=== PATIENT | male | born 1945 | race Caucasian/White ===

== ENCOUNTER 2022-06-18 06:04 | Inpatient (IN) ==
--- NOTE | 2022-06-16 12:15 | Anesthesiology Consultation ---
Date of Service June 16, 2022 Assessment & Plan (1) Encounter for pre-operative examination: Chart Review Chart Review: Acceptable Risk for Surgery (pending DOS PRP) and Patient NOT seen in Pre Admission Testing -Discussed with Dr. Epperson- patient can proceed as scheduled -Check PRP stat DOS (not done preoperatively) - Check BSG AM DOS -COVID screening: Per PAT nursing assessment on 06/15/22. No known COVID-19 positive contacts or current COVID-19 related symptoms. Travel screen negative. Patient is NOT vaccinated for Covid. At surgeon discretion if preop Covid testing being done. Per cardio phone note 04/29/22= Patient is being scheduled for spine surgery. Patient recently had coronary stenting in October 2021. In generalit is safest to wait 1 year after stent placement before considering holding antiplatelet agents for elective surgery. Most recent studies suggest that holding Plavix for a few days even 3 to 6 months after stent placement is relatively low risk as long as aspirin is not discontinued. However patient has not been on aspirin since he is also on Eliquis therapy. It is felt the benefits of spine surgery now outweigh the risks, I would consider him moderate risk for coronary ischemia given his fairly recent stent placement and residual coronary disease with occluded vein grafts to his circumflex and right coronary. Would recommend holding Plavix no longer than 5 days. He should take metoprolol the morning of the surgery. Postoperative EKG should be checked and he should be on telemetry postoperatively. Patient has permanent atrial fibrillation. He would be low risk to hold his Eliquis for 2 days prior to surgery from the cardiac standpoint. He is also at risk for anesthesia given his moderate pulmonary hypertension. Last seen by cardiology in office 03/25/2022 = from a cardiac standpointpatient feels fine. Active around the house without any chest pain and has no change in mild chronic dyspnea. Has been having intermittent episodes of epistaxis over the past year. Over the past month these have increased in frequency. Recent Holter monitor showed good rate control with A-fib and a short run of wide- complex rhythm representing either nonsustained VT or aberrant conduction. Patient currently on Eliquis for permanent A-fib along with antiplatelet therapy with Plavix 3 times a week given history of carotid stenting and more recently coronary stenting in October 2021. [id number] score is 5. Will arrange consultation with Dr. Moore to see if he can decrease the amount of epistaxis. Epistaxis most likely chronic- will follow-up- if continues- will set up for evaluation for watchman's device. Patient to continue Eliquis at 2.5 mg twice daily. Otherwise from the cardiac standpoint patient seems stable. Long history of coronary artery disease. We will continue medication therapy and risk factor modification. BP currently well controlled. Pulmonary hypertension appears a bit worse on recent echo. Some of the worsening pulmonary hypertension may be secondary to elevated blood pressures at the time of testing. Does have past smoking history. May consider pulmonary evaluation. We will plan to repeat echo next summer. Patient did well with recent carotid stenting procedure. Due for repeat carotid Doppler in October. Atrial fibrillation well controlled. PAD has been treated by Dr. Sorensen. Ideally would like to wait a full year after stent placement before considering elective procedures requiring antiplatelet medications to be discontinued for a week or so. History Surgery Operation Date: 06/18/22 12:15 Proposed Procedures p L4-L5 Decompression and Fusion, Possible L5-S1, Spinal Cord Monitoring - Augustine Celaya DO Height/Weight Height: 5 ft 6 in Weight: 97.522 kg Allergies Allergy/AdvReac Type Severity Reaction Status Date / Time No Known Allergies Allergy Verified 06/15/22 14:03 Medications Home Medications Medication Instructions Recorded Confirmed Last Taken apixaban 2.5 mg tablet (Eliquis) 2.5 mg PO BID 06/15/22 06/15/22 Unknown bumetanide 2 mg tablet 2 mg PO DAILY PRN Edema 06/15/22 06/15/22 Unknown ezetimibe 10 mg tablet 10 mg PO PM 06/15/22 06/15/22 Unknown gabapentin 300 mg capsule 300 mg PO HS 06/15/22 06/15/22 Unknown indomethacin 50 mg capsule 50 mg PO Q8H PRN Other 06/15/22 06/15/22 Unknown insulin glargine 100 unit/mL (3 58 unit subcut HS 06/15/22 06/15/22 Unknown mL) subcutaneous pen (Lantus Solostar U-100 Insulin) isosorbide mononitrate 60 mg 60 mg PO PM 06/15/22 06/15/22 Unknown tablet,extended release 24 hr magnesium chloride 71.5 mg 71.5 mg PO BID 06/15/22 06/15/22 Unknown (magnesium chloride) tablet,delayed release (Slow-Mag) metolazone 2.5 mg tablet 2.5 mg PO 2XWK 06/15/22 06/15/22 Unknown metoprolol succinate 100 mg 100 mg PO QAM 06/15/22 06/15/22 Unknown tablet,extended release 24 hr pantoprazole 40 mg tablet,delayed 40 mg PO BID 06/15/22 06/15/22 Unknown release potassium chloride 20 mEq 20 meq PO DAILY PRN Other 06/15/22 06/15/22 Unknown tablet,extended release ramipril 10 mg capsule 10 mg PO PM 06/15/22 06/15/22 Unknown ropinirole 0.25 mg tablet 0.25 mg PO HS 06/15/22 06/15/22 Unknown rosuvastatin 10 mg tablet 10 mg PO 2XWK 06/15/22 06/15/22 Unknown semaglutide 0.25 mg or 0.5 mg (2 1 mg subcut WK 06/15/22 06/15/22 Unknown mg/1.5 mL) subcutaneous pen injector (Ozempic) tramadol 100 mg tablet 100 mg PO Q6H PRN Pain 06/15/22 06/15/22 Unknown trazodone 50 mg tablet 50 mg PO HS PRN Sleep 06/15/22 06/15/22 Unknown Past Medical History Medical History (Updated 06/16/22 @ 12:11 by Cristina Cm PA-C) Atrial fibrillation Dx over 8 yrs ago > no pacer, on Eliquis CAD (coronary artery disease) - S/p CABG (LOPEZ to LAD, SVG to diagonal, SVG to marginal, and SVG to RCA) in 1995 - 2002- "multiple stents placed including LM stenting" (no specific details of procedure per records) - September 2011 cath- patent LOPEZ graft to LAD and SVG to diagonal; vein graft to marginal and RCA were occluded; LM stent patent and supplying blood flow to Cx which collateralized the distant RCA (treated with medical therapy since that time) - October 2021- GERSON to vein graft to diagonal branch (had ostial 90% lesion) Carotid artery disease S/p stent to right ICA 05/2021 (patent on 10/2021 carotid doppler) CHF (congestive heart failure) Follows with [facility] > with [facility] Diabetes mellitus, type 2 DVT (deep venous thrombosis) Approx 2 yrs ago > can't recall which leg > unknown cause GERD (gastroesophageal reflux disease) History of COVID-21 May 2019 > not hospitalized Hx of gout Hyperlipidemia Hypertension NSTEMI (non-ST elevated myocardial infarction) August 2021 PAD (peripheral artery disease) May 2019- underwent multiple stenting and balloon angioplasty procedures by Dr Edu Barnes historian Past Family History Family History Mother Diabetes Past Surgical History Surgical History (Updated 06/16/22 @ 13:33 by Cristina Cm PA-C) H/O carotid angioplasty May 2021 > right side History of appendectomy History of cardiac cath x several per pt, with last one October 2021, stent placed > Moe MOREJON 3 stents in 2002, might have had other stents, pt unsure History of colonoscopy History of coronary artery bypass graft 4 vessels in 1995 History of esophagogastroduodenoscopy (EGD) History of repair of rotator cuff left History of tooth extraction Social History Smoking Status: Former smoker Do You Dip or Chew Tobacco: No (quit october 2021) Smoking End Date: 1985 Hx Alcohol Use: No Hx Substance Use: No substance use type: does not use Testing Laboratory Results 06/02/22= WBC: 5.5 H/H: 14.6/44.7 PLATELETS: 119 (mild thrombocytopenia in the past per cardio records 03/25/22) PT: 13.7 INR: 1.22 Electrocardiogram Date: 06/02/22 Atrial fibrillation with premature ventricular or aberrantly conducted complexes at [address]- segment changes, consider ischemia Compared to previous, findings are similar, PVCs new per confirming provider Chest X-Ray Date: 09/30/21 Findings: + NAD and + cardiomegaly S/p CABG Echocardiogram Date: 10/02/21 EF: 55-60% LV Function: normal Severe hypertrophy observed in the left ventricle. Regional wall motion abnormalities present RV is moderately dilated Mild to moderate mitral insufficiency RV/PA systolic pressures is moderately to severely elevated, estimated at 55-60 mmHg. Moderate TR. Compared to prior studythere is mild change. Stress Test Date: 09/30/21 Type: nuclear Abnormal myocardial perfusion study suggesting predominant ischemia involving the inferior lateral wall from base to apex. Very subtle degree of anterior lateral ischemia cannot be excluded. Mildly reduced LV systolic function with inferior lateral wall motion abnormality (Had subsequent cardiac cath with stent- see below) Cardiac Catheterization Date: 10/01/21 Elevated right-sided filling pressures with preserved cardiac index Severe multivessel [place] coronary disease Vein graft to the PDA and the vein graft to the OM branch were previously known to be occluded and were not injected Vein graft to the diagonal branch has an ostial 90% lesionthis was deemed to be the culprit vessel for the NSTEMI and is now status post GERSON x1 with excellent angiographic result LOPEZ to LAD is widely patent Other Testing Carotid Doppler 11/06/2021 = less than 50% nonhemodynamically significant stenosis involving the bilateral internal carotid arteries. Antegrade vertebrals. Stented portion of the ICA of the right is widely patent.
[~2022-06-18 06:04] MED LIST: ACETAMINOPHEN 500 MG TAB PO SCH; CeleBREX 200 MG CAP PO SCH; GABAPENTIN 300 MG CAP PO SCH; LR 15ML/HR IV SCH; ceFAZolin 2000MG 2,000 MG/15 ML SYR IV SCH
[2022-06-18] MEDS ORDERED: MIDAZOLAM HCL 1 MG/ML 2ML VIAL ONE (06:56)
[2022-06-18] MEDS ORDERED: fentaNYL citrate 100 MCG/2 ML VIAL ONE (06:56)
[2022-06-18] MEDS ORDERED: PROPOFOL IV EMULSION 10 MG/ML 20 ML VIAL IV ONE (06:58)
[2022-06-18] MEDS ORDERED: ROCURONIUM BROMIDE 10 MG/ML 5 ML VIAL IV ONE (06:58)
[2022-06-18] MEDS ORDERED: LIDOCAINE 2% MPF LOCAL 5 ML VIAL INFIL ONE (06:58)
[2022-06-18] MEDS ORDERED: ONDANSETRON INJ 2 MG/ML 2 ML VIAL ONE (06:58)
[2022-06-18] MEDS ORDERED: DEXAMETHASONE SOD INJ 4 MG/ML VIAL ONE (06:59)
[2022-06-18] MEDS ORDERED: BUPIVACAINE/EPINEPHRINE 0.25% 1:200,000 30 ML VIAL ONE (07:01)
[2022-06-18] MEDS ORDERED: ceFAZolin 330 MG/ML 1 GM VIAL ONE (07:01)
[2022-06-18 07:03] LABS: BUN Creatinine Ratio 29.8 (10-20); Creatinine Clr Calc Pharmacy 48.7 ml/min; Est GFR (African American) 55.7 ml/min
[2022-06-18] MEDS ORDERED: KETAMINE 50 MG/5 ML SYRINGE ONE (07:38)
--- NOTE | 2022-06-18 07:38 | History & Physical Bridge Note ---
Date of Service June 18, 2022 History & Physical Bridge Note I have examined the patient, reviewed the History & Physical and in the interval since the performance of the History & Physical I have noted the following changes of clinical significance: no changes noted
--- NOTE | 2022-06-18 07:39 | History & Physical Report ---
Date of Service June 18, 2022 Assessment & Plan (1) Neurogenic claudication due to lumbar spinal stenosis: Plan: L4-5 decompression and fusion, possible L5-S1 History of Present Illness Chief Complaint: Back and leg pain Primary Care Provider: NO PCP This is a 77-year-old male who presents with chronic persistent back and leg Pain after failing course of nonoperative care is here for surgical intervention. Allergies Allergy/AdvReac Type Severity Reaction Status Date / Time No Known Allergies Allergy Verified 06/18/22 06:49 Home Medications Medication Instructions Recorded Confirmed Type apixaban 2.5 mg tablet (Eliquis) 2.5 mg PO BID 06/15/22 06/18/22 History bumetanide 2 mg tablet 2 mg PO DAILY PRN Edema 06/15/22 06/18/22 History ezetimibe 10 mg tablet 10 mg PO PM 06/15/22 06/18/22 History gabapentin 300 mg capsule 300 mg PO HS 06/15/22 06/18/22 History indomethacin 50 mg capsule 50 mg PO Q8H PRN Other 06/15/22 06/18/22 History insulin glargine 100 unit/mL (3 58 unit subcut HS 06/15/22 06/18/22 History mL) subcutaneous pen (Lantus Solostar U-100 Insulin) isosorbide mononitrate 60 mg 60 mg PO PM 06/15/22 06/18/22 History tablet,extended release 24 hr magnesium chloride 71.5 mg 71.5 mg PO BID 06/15/22 06/18/22 History (magnesium chloride) tablet,delayed release (Slow-Mag) metolazone 2.5 mg tablet 2.5 mg PO 2XWK 06/15/22 06/18/22 History metoprolol succinate 100 mg 100 mg PO QAM 06/15/22 06/18/22 History tablet,extended release 24 hr pantoprazole 40 mg tablet,delayed 40 mg PO BID 06/15/22 06/18/22 History release potassium chloride 20 mEq 20 meq PO DAILY PRN Other 06/15/22 06/18/22 History tablet,extended release ramipril 10 mg capsule 10 mg PO PM 06/15/22 06/18/22 History ropinirole 0.25 mg tablet 0.25 mg PO HS 06/15/22 06/18/22 History rosuvastatin 10 mg tablet 10 mg PO 2XWK 06/15/22 06/18/22 History semaglutide 0.25 mg or 0.5 mg (2 1 mg subcut WK 06/15/22 06/18/22 History mg/1.5 mL) subcutaneous pen injector (Ozempic) trazodone 50 mg tablet 50 mg PO HS PRN Sleep 06/15/22 06/18/22 History Past Med/Surg History Medical History (Updated 06/18/22 @ 07:39 by Augustine Celaya DO) Atrial fibrillation Dx over 8 yrs ago > no pacer, on Eliquis CAD (coronary artery disease) - S/p CABG (LOPEZ to LAD, SVG to diagonal, SVG to marginal, and SVG to RCA) in 1995 - 2002- "multiple stents placed including LM stenting" (no specific details of procedure per records) - September 2011 cath- patent LOPEZ graft to LAD and SVG to diagonal; vein graft to marginal and RCA were occluded; LM stent patent and supplying blood flow to Cx which collateralized the distant RCA (treated with medical therapy since that time) - October 2021- GERSON to vein graft to diagonal branch (had ostial 90% lesion) Carotid artery disease S/p stent to right ICA 05/2021 (patent on 10/2021 carotid doppler) CHF (congestive heart failure) Follows with [facility] Thomas > with [facility] Diabetes mellitus, type 2 DVT (deep venous thrombosis) Approx 2 yrs ago > can't recall which leg > unknown cause GERD (gastroesophageal reflux disease) History of COVID-21 May 2019 > not hospitalized Hx of gout Hyperlipidemia Hypertension NSTEMI (non-ST elevated myocardial infarction) August 2021 PAD (peripheral artery disease) May 2019- underwent multiple stenting and balloon angioplasty procedures by Dr Edu Barnes historian Surgical History (Updated 06/16/22 @ 13:33 by Cristina Cm PA-C) H/O carotid angioplasty May 2021 > right side History of appendectomy History of cardiac cath x several per pt, with last one October 2021, stent placed > Moe MOREJON 3 stents in 2002, might have had other stents, pt unsure History of colonoscopy History of coronary artery bypass graft 4 vessels in 1995 History of esophagogastroduodenoscopy (EGD) History of repair of rotator cuff left History of tooth extraction Family History Mother Diabetes Social History Smoking Status: Former smoker Smoking End Date: 1985; Second Hand Exposure: No; Do You Dip or Chew Tobacco: No (quit october 2021); Tobacco Cessation Education Requested by Patient: No Hx Alcohol Use: No Hx Substance Use: No Preferred Language: Slovenian Communication Ability: Effective Assembler Motor Vehicle Required: No Beliefs That Will Affect Care: None Current Living Situation: Alone Other Information That Helps Us Care for You: No Feels Safe at Home: Yes Safety Concerns: Feels Safe At This Time Assistive Devices: Cane, Denture - Upper, Denture - Lower, Glasses and Walker Physical Exam Physical Exam: Patient is alert and oriented Heart regular rhythm Lungs clear Results & Data Results & Data ([facility]) Vital Signs (Past 12 Hours) Vital Signs Temp Pulse Resp BP Pulse Ox O2 Del Method 06/18/22 07:00 36.7 C 79 20 143/79 H 97 Room Air
[2022-06-18] MEDS ORDERED: ONDANSETRON INJ 2 MG/ML 2 ML VIAL IV PRN (07:44)
[2022-06-18] MEDS ORDERED: ePHEDrine sulfate 50 MG/ML AMP IV PRN (07:44)
[2022-06-18] MEDS ORDERED: ATROPINE SULFATE 0.1 MG/ML 10ML SYR IV PRN (07:44)
--- NOTE | 2022-06-18 07:44 | Anesthesiology Consultation ---
Date of Service June 18, 2022 Assessment & Plan ASA ASA3 Proposed Anesthesia Anesthesia Type: General Risk / Benefits Reviewed With: PT / POA / Parent / Guardian, Accepts Plan and Informed Consent Obtained History Surgery Operation Date: 06/18/22 07:45 Proposed Procedures p L4-L5 Decompression and Fusion, Possible L5-S1, Spinal Cord Monitoring - Augustine Celaya, Height/Weight Height: 5 ft 6 in Weight: 103.5 kg Allergies Allergy/AdvReac Type Severity Reaction Status Date / Time No Known Allergies Allergy Verified 06/18/22 06:49 Medications Home Medications Medication Instructions Recorded Confirmed Last Taken apixaban 2.5 mg tablet (Eliquis) 2.5 mg PO BID 06/15/22 06/18/22 06/15/22 07:00 bumetanide 2 mg tablet 2 mg PO DAILY PRN Edema 06/15/22 06/18/22 06/17/22 07:00 ezetimibe 10 mg tablet 10 mg PO PM 06/15/22 06/18/22 06/16/22 19:00 gabapentin 300 mg capsule 300 mg PO HS 06/15/22 06/18/22 06/16/22 19:00 indomethacin 50 mg capsule 50 mg PO Q8H PRN Other 06/15/22 06/18/22 06/10/22 19:00 insulin glargine 100 unit/mL (3 58 unit subcut HS 06/15/22 06/18/22 06/17/22 20:00 mL) subcutaneous pen (Lantus Solostar U-100 Insulin) isosorbide mononitrate 60 mg 60 mg PO PM 06/15/22 06/18/22 06/17/22 19:00 tablet,extended release 24 hr magnesium chloride 71.5 mg 71.5 mg PO BID 06/15/22 06/18/22 06/10/22 07:00 (magnesium chloride) tablet,delayed release (Slow-Mag) metolazone 2.5 mg tablet 2.5 mg PO 2XWK 06/15/22 06/18/22 06/16/22 07:00 metoprolol succinate 100 mg 100 mg PO QAM 06/15/22 06/18/22 06/18/22 04:00 tablet,extended release 24 hr pantoprazole 40 mg tablet,delayed 40 mg PO BID 0206/18/22 06/18/22 04:00 release potassium chloride 20 mEq 20 meq PO DAILY PRN Other 06/15/22 06/18/22 06/16/22 19:00 tablet,extended release ramipril 10 mg capsule 10 mg PO PM 06/15/22 06/18/22 06/17/22 07:00 ropinirole 0.25 mg tablet 0.25 mg PO HS 06/15/22 06/18/22 06/15/22 19:00 rosuvastatin 10 mg tablet 10 mg PO 2XWK 06/15/22 06/18/22 06/15/22 19:00 semaglutide 0.25 mg or 0.5 mg (2 1 mg subcut WK 06/15/22 06/18/22 06/14/22 20:00 mg/1.5 mL) subcutaneous pen injector (Ozempic) trazodone 50 mg tablet 50 mg PO HS PRN Sleep 06/15/22 06/18/22 06/16/22 20:00 Active Medications Generic Name Dose Route Start Last Admin Trade Name Keke PRN Reason Stop Dose Admin Acetaminophen 1,000 mg 06/18/22 06:00 06/18/22 07:22 Acetaminophen 500 Mg Tab PO 06/18/22 18:00 1,000 mg PREOP VALORIE Administration Celecoxib 200 mg 06/18/22 06:00 06/18/22 07:22 Celebrex 200 Mg Cap PO 06/18/22 18:00 200 mg PREOP VALORIE Administration Gabapentin 300 mg 06/18/22 06:00 06/18/22 07:22 Gabapentin 300 Mg Cap PO 06/18/22 18:00 300 mg PREOP VALORIE Administration Lactated Ringer's 1,000 mls @ 15 mls/hr 06/18/22 06:00 06/18/22 07:00 Lr IV 06/19/22 05:59 15 mls/hr .Q24H VALORIE Administration NPO Date Last Intake of Fluids: 06/17/22 Time Last Intake of Fluids: 22:00 Last Intake of Fluids Comment: sip of water with meds today Date Last Intake of Solids: 06/17/22 Time Last Intake of Solids: 20:00 Past Medical History Medical History Atrial fibrillation Dx over 8 yrs ago > no pacer, on Eliquis CAD (coronary artery disease) - S/p CABG (LOPEZ to LAD, SVG to diagonal, SVG to marginal, and SVG to RCA) in 1995 - 2002- "multiple stents placed including LM stenting" (no specific details of procedure per records) - September 2011 cath- patent LOPEZ graft to LAD and SVG to diagonal; vein graft to marginal and RCA were occluded; LM stent patent and supplying blood flow to Cx which collateralized the distant RCA (treated with medical therapy since that time) - October 2021- GERSON to vein graft to diagonal branch (had ostial 90% lesion) Carotid artery disease S/p stent to right ICA 05/2021 (patent on 10/2021 carotid doppler) CHF (congestive heart failure) Follows with [facility] Thomas > with [facility] Diabetes mellitus, type 2 DVT (deep venous thrombosis) Approx 2 yrs ago > can't recall which leg > unknown cause GERD (gastroesophageal reflux disease) History of COVID-21 May 2019 > not hospitalized Hx of gout Hyperlipidemia Hypertension NSTEMI (non-ST elevated myocardial infarction) August 2021 PAD (peripheral artery disease) May 2019- underwent multiple stenting and balloon angioplasty procedures by Dr Edu Barnes historian Exercise / Class Metabolic Activity II 4-5 Yardwork/Stairs/Walk up hill Past Family History Family History Mother Diabetes Past Surgical History Surgical History H/O carotid angioplasty May 2021 > right side History of appendectomy History of cardiac cath x several per pt, with last one October 2021, stent placed > Moe MOREJON 3 stents in 2002, might have had other stents, pt unsure History of colonoscopy History of coronary artery bypass graft 4 vessels in 1995 History of esophagogastroduodenoscopy (EGD) History of repair of rotator cuff left History of tooth extraction Past Anesthesia History No Hx of Anesthesia Complications and No Family Hx of Anesthesia Complications History of PONV No Hx of PONV and No Hx of Motion Sickness Social History Smoking Status: Former smoker Do You Dip or Chew Tobacco: No (quit october 2021) Smoking End Date: 1985 Hx Alcohol Use: No Hx Substance Use: No substance use type: does not use Review of Systems denies fever/cough/ colds/ chest pain/ SOB/ HAYDEN denies HAYDEN Physical Exam Vital Signs Last Vital Signs Temp 36.7 C 06/18/22 07:00 Pulse 79 06/18/22 07:00 Resp 20 06/18/22 07:00 BP 143/79 H 06/18/22 07:00 Pulse Ox 97 06/18/22 07:00 O2 Del Method Room Air 06/18/22 07:00 ENMT Mouth: no TMJ abnormality and no dentition abnormality Thyromental Distance: > or= 3.5 Finger Breadths Mallampati Class: II Neck neck extension not limited Respiratory normal respiratory effort; no respiratory distress Auscultation: lungs clear to auscultation bilaterally Cardiovascular Rate/Rhythm: regular rate and regular rhythm Neurologic moves all extremities Psychiatric Orientation: alert and oriented x 3 Testing Laboratory Results 06/18/22 06:24 Blood Type O Negative 06/18/22 06:24 Antibody Screen NEGATIVE 06/18/22 06:24 06/18/22 06:31 POC Glucose 97 Electrocardiogram Date: 06/02/22 Atrial fibrillation with premature ventricular or aberrantly conducted complexes at [address]- segment changes, consider ischemia Compared to previous, findings are similar, PVCs new per confirming provider Chest X-Ray Date: 09/30/21 Findings: + NAD and + cardiomegaly S/p CABG Echocardiogram Date: 10/02/21 EF: 55-60% LV Function: normal Severe hypertrophy observed in the left ventricle. Regional wall motion abnormalities present RV is moderately dilated Mild to moderate mitral insufficiency RV/PA systolic pressures is moderately to severely elevated, estimated at 55-60 mmHg. Moderate TR. Compared to prior studythere is mild change. Stress Test Date: 09/30/21 Type: nuclear Abnormal myocardial perfusion study suggesting predominant ischemia involving the inferior lateral wall from base to apex. Very subtle degree of anterior lateral ischemia cannot be excluded. Mildly reduced LV systolic function with inferior lateral wall motion abnormality (Had subsequent cardiac cath with stent- see below) Cardiac Catheterization Date: 10/01/21 Elevated right-sided filling pressures with preserved cardiac index Severe multivessel agdaagux coronary disease Vein graft to the PDA and the vein graft to the OM branch were previously known to be occluded and were not injected Vein graft to the diagonal branch has an ostial 90% lesionthis was deemed to be the culprit vessel for the NSTEMI and is now status post GERSON x1 with excellent angiographic result LOPEZ to LAD is widely patent Other Testing Carotid Doppler 11/06/2021 = less than 50% nonhemodynamically significant stenosis involving the bilateral internal carotid arteries. Antegrade vertebrals. Stented portion of the ICA of the right is widely patent.
[2022-06-18 07:47] LABS: Hematocrit (blood only) 43.4 % (42.0-52.0); Hemoglobin 14.6 g/dl (14.0-18.0); Mean Corpuscular Hemoglobin 31.3 pg (25.0-34.0); Mean Corpuscular Hgb Conc 33.6 g/dL (32.0-36.0); Mean Corpuscular Volume 92.9 fL (80.0-100.0); Mean Platelet Volume 9.2 fL (9.4-12.4); Platelet Count 138 K/uL (130-400); RDW Coefficient of Variation 14.9 % (11.5-14.5); RDW Standard Deviation 50.9 fL (36.4-46.3); Red Blood Count 4.67 M/uL (4.70-6.10); White Blood Count 7.69 K/ul (4.8-10.8)
[2022-06-18] MEDS ORDERED: FLOSEAL HEMOSTATIC MATRIX 10ML TOP ONE (08:47)
[2022-06-18] MEDS ORDERED: SUGAMMADEX SODIUM 200 MG/2 ML VIAL IV ONE (08:49)
--- NOTE | 2022-06-18 09:50 | Operative Report ---
Post Operative Report Pre & Post Diagnosis Operation Date: 06/18/22 07:45 Pre-Op Diagnosis: Neurogenic claudication due to lumbar spinal stenosis Post-Op Diagnosis: Neurogenic claudication due to lumbar spinal stenosis I identified the patient and participated in the time-out.: Yes Procedure Operation Date: 06/18/22 07:45 Actual Procedures #1 lumbar decompression bilaterally facetectomies and foraminotomies L3-L4 L4-5. #2 posterior spinal fusion L4-5 per #3 placed posterior instrumentation L4-5. #4 interbody fusion L4-5 per #5 placement of Spira 14 x 26 mm cage at L4-5. #6 placement locally harvested morselized autograft in the posterior gutters. #7 placement of I factor combined with V toss in the interbody space and posterior gutters. Surgeon Augustine Celaya, DO Cable Installer None Estimated Blood Loss 100 Findings See Below The patient is 5 foot 6 weighing over 103 kg with a BMI in excess of 36. Patient's body habitus did contribute to significant technical difficulty required deepest retractors and longer instruments in order to perform his procedure. This at least 50% increased operative time. Specimens None Indications This is a 77-year-old male who presents above-mentioned diagnosis after failing course of nonoperative care is here for surgical intervention. Description of Procedure Patient was met with identified informed consent obtained. Patient was then taken to the operative suite underwent a patient placed in a prone position on the [facility] top Александр frame. All bony prominences well-padded eyes inspected to ensure no external pressure placed upon the. This point the lumbar spine was prepped and draped no sterile fashion. Sharp dissection with the assistance of Bovie cautery was performed down to and exposing the lamina transverse processes of L4-L5. From caudal to cephalad fashion complete laminectomy of L4 partial laminectomy L3 was performed including bilateral medial facetectomies and foraminotomies addressing severe spinal stenosis. Pedicle screws were then placed in L4-5 bilaterally with assistance of fluoroscopy and properly sized lucas placed. By way the transforaminal approach on the left complete discectomy of L4-5 was performed endplates curetted to subcortically bone and a 14 x 26 mm spiral cage with I factor tapped in position. The rods then locked into final position bilaterally. The transverse processes of L for L5 burred to subcortically bone. I factor bone of the test and locally harvested morselized autograft was placed in the posterior gutters. 15 round IDA drain inserted. The incision was then closed with 1 Vicryl the fascia 2-0 Vicryl subcutaneously and 4 Monocryl for final skin closure. Steri- Strip sterile dressings placed. Patient waken taken to PACU stable condition. Please note spinal cord monitoring was utilized throughout the procedure no changes noted. I attest to the content of the Intraoperative Record and any orders documented therein. Any exceptions are noted below.
--- NOTE | 2022-06-18 10:10 | Fluoroscopy Report ---
FL lumbar spine 2-3V CLINICAL HISTORY: L4-L5 DECOMPRESSION AND FUSION TECHNIQUE: 2 views were obtained with the C-arm in the OR with the above procedure. Total fluoroscopy time was 20 seconds. Radiation dose was 19.92 mGy. Comparison: None available at the time of this dictation. FINDINGS/IMPRESSION: Intraoperative images were obtained of L4-L5 decompression and fusion. Please correlate with intraoperative fluoroscopy and operative report. ACT 112: Negative or not required by law. Electronically signed by: Tarik Garcia M.D. 06/18/2022 10:08 AM
[2022-06-18] MEDS: fentaNYL citrate 100 MCG/2 ML VIAL IV PRN ×2 (10:25→10:35)
--- NOTE | 2022-06-18 11:14 | Anesthesiology Progress Note ---
Date of Service June 18, 2022 Anesthesia Post Procedure Vital Signs Vital Signs: Temp Pulse Pulse Resp BP Pulse Ox O2 Del Method 06/18/22 11:00 82 14 120/68 95 Nasal Cannula 06/18/22 10:50 77 18 142/92 H 98 Nasal Cannula 06/18/22 10:40 36.4 C L 70 12 160/86 H 96 Nasal Cannula 06/18/22 10:30 71 18 161/92 H 96 Oxymask 06/18/22 10:20 76 18 159/83 H 97 Oxymask 06/18/22 10:10 84 20 163/84 H 100 Oxymask 06/18/22 10:00 74 18 165/98 H 100 Oxymask 06/18/22 09:56 36.2 C L 73 20 180/83 H 98 Oxymask 06/18/22 07:00 36.7 C 79 20 143/79 H 97 Room Air O2 Flow Rate 06/18/22 11:00 2 06/18/22 10:50 2 06/18/22 10:40 2 06/18/22 10:30 3 06/18/22 10:20 3 06/18/22 10:10 3 06/18/22 10:00 6 06/18/22 09:56 6 06/18/22 07:00 Pain Intensity Back: Pain Intensity: 3 Transfer of Care Handoff Completed per policy Notes Mental Status: alert / awake / arousable and participated in evaluation Patient Amnestic to Procedure: Yes Nausea / Vomiting: adequately controlled Pain: adequately controlled Airway Patency, RR, SpO2: stable & adequate BP & HR: stable & adequate Hydration State: stable & adequate Anesthetic Complications: no major complications apparent and Pt Satisfied with anesthetic care
[2022-06-18 12:59] LABS: Appearance Urine Clear (Clear); Bacteria Urine Automated Negative (Negative); Bilirubin Urine Negative (Negative); Blood Urine Negative (Negative); Color Urine Yellow; Epithelial Cell Urine Auto >30 /lpf (0-5); Glucose Urine UA Negative (Negative); Ketones Urine Negative (Negative); Leukocyte Esterase Urine Negative (Negative); Nitrite Urine Negative (Negative); Protein Urine 2+ (Negative); RBC Urine Automated 0-4 /hpf (0-4); Specific Gravity Urine 1.024 (1.000-1.030); Urobilinogen Urine Negative (Negative)
--- NOTE | 2022-06-18 15:10 | Communication Note ---
Date of Service: June 18, 2022 Called by PCU Director Malcom regarding an patient of Dr. Pan Celaya's who is postoperative. This patient does not have any medication orders for hypert ensive control for which he takes chronic medications nor diabetic control for which takes chronic insulin. At this time pending return call from Dr. Celaya I was asked to weigh in to try to have the patient treated with his chronic medications in the postoperative period until Dr. Celaya can be contacted. To this and I did order the patient's cardiac medications with hold for blood pressure and insulin both basal bolus. If a formal consultation is rendered by Dr. Celaya would be happy to complete the consult.
[2022-06-18] MEDS ORDERED: GLUCOSE 10 TAB/TUBE PO PRN (16:10)
[2022-06-18] MEDS ORDERED: PHARMACY GLYCEMIC MGMT CONSULT PRN (16:10)
[2022-06-18] MEDS ORDERED: DEXTROSE 50% 50 ML SYRINGE IV PRN (16:10)
[2022-06-18] MEDS ORDERED: GLUCOSE 40% GEL 15 GM TUBE PO PRN (16:10)
[2022-06-18] MEDS ORDERED: GLUCAGON FOR INJ 1 MG VIAL SQ PRN (16:10)
[2022-06-18] MEDS ORDERED: CARBOHYDRATES FOR HYPOGLYCEMIA PO PRN (16:10)
[2022-06-18] MEDS ORDERED: MoRPHine SULFATE 2 MG/ML CARP IV PRN (17:55)
[2022-06-18] MEDS: INSULIN ASPART PER UNIT SC SCH ×2 (17:56→21:16)
[2022-06-18] MEDS ORDERED: LANTUS PER UNIT CHARGE SQ SCH (21:00)
[2022-06-18] MEDS ORDERED: ISOSORBIDE MONO EXTENDED REL 30 MG TABCR PO SCH (21:00)
[2022-06-18] MEDS: ACETAMINOPHEN 500 MG TAB PO PRN (21:11)
[2022-06-18] MEDS: GABAPENTIN 300 MG CAP PO SCH (21:11)
[2022-06-19] MEDS: rOPINIRole HCL 0.25 MG TABLET PO SCH ×2 (01:42→20:02)
[2022-06-19 07:47] LABS: Basophils # (auto) 0.01 K/uL (0-0.2); Basophils % (auto) 0.1 %; Eosinophils # (auto) 0.04 K/uL (0-0.50); Eosinophils % (auto) 0.4 %; Hemoglobin 12.8 g/dl (14.0-18.0); Immature Granulocytes # (auto) 0.04 K/uL (0.01-0.20); Immature Granulocytes % (auto) 0.4 %; Lymphocytes # (auto) 1.09 K/uL (1.2-3.4); Mean Corpuscular Hgb Conc 32.8 g/dL (32.0-36.0); Mean Corpuscular Volume 94.4 fL (80.0-100.0); Mean Platelet Volume 9.3 fL (9.4-12.4); Monocytes % (auto) 9.9 %; Neutrophils # (auto) 7.02 K/uL (1.40-6.50); Neutrophils % (auto) 77.2 %; Platelet Count 125 K/uL (130-400); RDW Coefficient of Variation 15.1 % (11.5-14.5); RDW Standard Deviation 52.2 fL (36.4-46.3); Red Blood Count 4.13 M/uL (4.70-6.10)
[2022-06-19 08:00] LABS: BUN Creatinine Ratio 28.5 (10-20); Creatinine Clr Calc Pharmacy 49.2 ml/min; Est GFR (African American) 54.3 ml/min; Est GFR (Non-African American) 46.8 ml/min; Potassium 4.1 mmol/L (3.5-5.1)
[2022-06-19] MEDS: INSULIN ASPART PER UNIT SC SCH ×4 (08:13→20:09)
[2022-06-19] MEDS ORDERED: LANTUS PER UNIT CHARGE SQ SCH ×2 (09:00→21:00)
[2022-06-19] MEDS ORDERED: METOPROLOL SUCC 50MG EXT REL TAB PO SCH (09:00)
--- NOTE | 2022-06-19 09:09 | Orthopedic Progress Note ---
Date of Service June 19, 2022 Assessment & Plan (1) Neurogenic claudication due to lumbar spinal stenosis: Plan: At this time continue physical therapy monitor his IDA operatively discharge home this weekend. Admission and Anticipated Discharge Date Admission Date: June 18, 2022 Subjective Back pain controlled leg pain markedly improved Physical Exam Physical Exam: Patient appears comfortable. Ejection strength testing. Results & Data ([facility]) Vital Signs (Past 12 Hours) Vital Signs Temp Pulse Pulse Resp BP BP Pulse Ox 06/19/22 07:39 81 06/19/22 07:27 36.4 C L 66 16 120/64 93 06/19/22 03:49 106/65 06/19/22 02:53 36.7 C 66 20 90/48 L 92 06/18/22 22:51 64 06/18/22 22:29 36.5 C 80 18 127/71 95 O2 Del Method 06/19/22 07:39 06/19/22 07:27 Room Air 06/19/22 03:49 06/19/22 02:53 Room Air 06/18/22 22:51 06/18/22 22:29 Room Air
--- NOTE | 2022-06-19 09:09 | Operative Report ---
Post Operative Report Pre & Post Diagnosis Operation Date: 06/18/22 07:45 Pre-Op Diagnosis: Neurogenic claudication due to lumbar spinal stenosis Post-Op Diagnosis: Neurogenic claudication due to lumbar spinal stenosis I identified the patient and participated in the time-out.: Yes Procedure Operation Date: 06/18/22 07:45 Actual Procedures p L4-L5 Decompression and Fusion, Spinal Cord Monitoring(Not Applicable) - Augustine Celaya DO Surgeon Augustine Celaya DO Baton Teacher None Estimated Blood Loss 100 I attest to the content of the Intraoperative Record and any orders documented therein. Any exceptions are noted below.
--- NOTE | 2022-06-19 11:19 | Pharmacy Report ---
Pharmacy Glycemic Short Note 2 - Date of Service June 19, 2022 - Glycemic Short BSG Results (Last 24 hours): 06/18/22 06/18/22 06/18/22 12:36 16:10 21:06 Glucose POC Glucose 157 H 171 H 172 H 06/19/22 06/19/22 07:00 07:16 Glucose 157 H POC Glucose 144 H OUTPATIENT ANTIDIABETIC REGIMEN: * Lantus 58 units SQ HS * Ozempic 1 mg weekly - last dose was 06/14/22 * HbA1c = ASSESSMENT: * 77 y/o M admitted for lumbar decompression surgery yesterday. Patient with history of Type 2 diabetes managed at home on basal insulin and weekly Ozempic SQ. Will hold Ozempic while admitted. * He received IV Dexamethasone 4 mg x1 during surgery yesterday. BSGs trended up to 172 mg/dl at HS. * Basal insulin 25 units given last night based on wt and stress of 3. Novolog was started based on wt and stress of 2 but looser carb ratio. * An additional 10 units of basal given this morning to total about 60% of home dose. For tonight, will order basal scale based on BSG. * Novolog carb ratio tightened slightly with breakfast today. PLAN FOR INPATIENT GLYCEMIC CONTROL: * Hold outpatient oral diabetes medications * Basal insulin * Lantus 25 units SQ last night and 10 units SQ this morning x1. * Lantus 25-30 units scale SQ at HS based on BS units for BSG </= 160 and 30 units for BSG > 160 * Bolus insulin * NovoLog per scale ACHS or Q6hrs while NPO. Also added 02:00 check * Goal Range: Low 110 mg/dL - High 140 mg/dL * Correction Factor: 20 mg/dL/unit * Nutritional / Prandial insulin per carb ratio of 1 unit per 8 grams CHO consumed
--- NOTE | 2022-06-19 12:14 | Hospitalist Consultation ---
Date of Consultation June 19, 2022 Assessment & Plan (1) Neurogenic claudication due to lumbar spinal stenosis: s/p L4-5 decompression and fusion 06/18/[address] Celaya - POD#1 - doing well - DVT ppx will be covered by resumption of Eliquis - Pain control and drain management as ordered by Dr. Celaya - Recommend utilizing IS q1-2h while awake - PT/OT eval - CM to assist in dc planning (2) Atrial fibrillation: - Permanent afib, rate controlled - Continue Metoprolol Succinate 100mg daily - On Eliquis at home (presently held perioperatively) (3) Diabetes mellitus, type 2: - Hemoglobin A1c is pending - Currently on Lantus 58 units HS and Ozempic at home - Pharmacy has been consulted for glycemic management - Will transition back to HS Lantus tomorrow to get ready for dc - Carb consistent diet and accuchecks ac and hs - Would assume pt also with a degree of CKD d/t microvascular disease with creat of 1.4 (no prior records for comparison) (4) CAD (coronary artery disease): - H/o CAD s/p CABG in 1995, coronary stenting, NSTEMI, HTN, HLD, Carotid stenosis, and PAD - Last echo October 2021- EF 55-60%, severe LVH, mild-mod MR, moderate TR, dilated RV, and RV/PA pressure mod to severely elevated at 55-60 mmHg - Last stress test in August 2021, stented in the saphenous vein graft - Resume Isosorbide, Metoprolol Succinate, Ramipril, Rosuvastatin - Discussed resumption of Eliquis with Dr. Celaya, plan to resume on 06/20 - According to cardiology note from Mar 2022, pt is also to be on Plavix 3x per week ? - Follow up as planned with established cold food packer (5) CHF (congestive heart failure): - Compensated - Continue Bumex PRN and Metolazone twice weekly Plan Thank you for allowing us to participate in the care of your patient. No further recommendations. Will sign off but continue to do daily chart checks. Please feel free to reconsult if the need should arise while patient remains in house. Plan to be d/w Dr. Mario who will also see and evaluate this patient. Further orders will be implemented as warranted. History of Present Illness Reason for Consultation: Medical management Requesting Physician: Dr. Celaya Attending Physician: Augustine Celaya, DO History of Present Illness Raul Ceja is a 77 yo WM who has an extensive vascular history including CAD with CABG and coronary artery stenting, carotid stenting, and peripheral artery stenting. He also carries a h/o permanent afib for which he takes Eliquis 2.5mg BID and insulin dependent diabetes. He was hospitalized under Dr. Celaya's service for elective lumbar decompression and fusion due to spinal stenosis which was causing back pain with radiation down both legs. This morning, he is POD 1 and reports that his back is sore but he no longer has pain down his legs. He denies chest pain or dyspnea. No fever/chills, loss of bowel or bladder control, or saddle anesthesias. He lives at home with someone that can assist him and does plan to return home when he is medically ready. Hospitalists were consulted to assist in routine post operative medical management. Allergies Allergy/AdvReac Type Severity Reaction Status Date / Time No Known Allergies Allergy Verified 06/18/22 06:49 Home Medications Medication Instructions Recorded Confirmed Type apixaban 2.5 mg tablet (Eliquis) 2.5 mg PO BID 06/15/22 06/18/22 History bumetanide 2 mg tablet 2 mg PO DAILY PRN Edema 06/15/22 06/18/22 History ezetimibe 10 mg tablet 10 mg PO PM 06/15/22 06/18/22 History gabapentin 300 mg capsule 300 mg PO HS 06/15/22 06/18/22 History indomethacin 50 mg capsule 50 mg PO Q8H PRN Other 06/15/22 06/18/22 History insulin glargine 100 unit/mL (3 58 unit subcut HS 06/15/22 06/18/22 History mL) subcutaneous pen (Lantus Solostar U-100 Insulin) isosorbide mononitrate 60 mg 60 mg PO PM 06/15/22 06/18/22 History tablet,extended release 24 hr magnesium chloride 71.5 mg 71.5 mg PO BID 06/15/22 06/18/22 History (magnesium chloride) tablet,delayed release (Slow-Mag) metolazone 2.5 mg tablet 2.5 mg PO 2XWK 06/15/22 06/18/22 History metoprolol succinate 100 mg 100 mg PO QAM 06/15/22 06/18/22 History tablet,extended release 24 hr pantoprazole 40 mg tablet,delayed 40 mg PO BID 06/15/22 06/18/22 History release potassium chloride 20 mEq 20 meq PO DAILY PRN Other 06/15/22 06/18/22 History tablet,extended release ramipril 10 mg capsule 10 mg PO PM 06/15/22 06/18/22 History ropinirole 0.25 mg tablet 0.25 mg PO HS 06/15/22 06/18/22 History rosuvastatin 10 mg tablet 10 mg PO 2XWK 06/15/22 06/18/22 History semaglutide 0.25 mg or 0.5 mg (2 1 mg subcut WK 06/15/22 06/18/22 History mg/1.5 mL) subcutaneous pen injector (Ozempic) trazodone 50 mg tablet 50 mg PO HS PRN Sleep 06/15/22 06/18/22 History oxycodone 5 mg tablet 5 mg PO Q6H PRN pain, severe #30 06/19/22 Rx tabs tramadol 50 mg tablet 50 mg PO Q6H PRN pain, moderate 06/19/22 Rx #30 tabs Patient History Medical History (Updated 06/19/22 @ 12:23 by Skylar Castro PA-C) Atrial fibrillation Dx over 8 yrs ago > no pacer, on Eliquis CAD (coronary artery disease) - S/p CABG (LOPEZ to LAD, SVG to diagonal, SVG to marginal, and SVG to RCA) in 1995 - 2002- "multiple stents placed including LM stenting" (no specific details of procedure per records) - September 2011 cath- patent LOPEZ graft to LAD and SVG to diagonal; vein graft to marginal and RCA were occluded; LM stent patent and supplying blood flow to Cx which collateralized the distant RCA (treated with medical therapy since that time) - October 2021- GERSON to vein graft to diagonal branch (had ostial 90% lesion) Carotid artery disease S/p stent to right ICA 05/2021 (patent on 10/2021 carotid doppler) CHF (congestive heart failure) Follows with [facility] > with [facility] Diabetes mellitus, type 2 DVT (deep venous thrombosis) Approx 2 yrs ago > can't recall which leg > unknown cause GERD (gastroesophageal reflux disease) History of COVID-21 May 2019 > not hospitalized Hx of gout Hyperlipidemia Hypertension NSTEMI (non-ST elevated myocardial infarction) August 2021 PAD (peripheral artery disease) May 2019- underwent multiple stenting and balloon angioplasty procedures by Dr Edu Barnes historian Surgical History H/O carotid angioplasty May 2021 > right side History of appendectomy History of cardiac cath x several per pt, with last one October 2021, stent placed > Moe MOREJON 3 stents in 2002, might have had other stents, pt unsure History of colonoscopy History of coronary artery bypass graft 4 vessels in 1995 History of esophagogastroduodenoscopy (EGD) History of repair of rotator cuff left History of tooth extraction Family History Mother Diabetes Social History Smoking Status: Never smoker Smoking End Date: 1985; Second Hand Exposure: No; Do You Dip or Chew Tobacco: No (quit october 2021); Tobacco Cessation Education Requested by Patient: No Hx Alcohol Use: No Hx Substance Use: No Preferred Language: Italian Communication Ability: Effective Executive Relations Specialist Required: No Beliefs That Will Affect Care: None Current Living Situation: Other Other Information That Helps Us Care for You: No Feels Safe at Home: Yes Safety Concerns: Feels Safe At This Time Assistive Devices: Cane, Glasses and Walker Physical Exam Physical Exam: GENERAL: 77 yo Well-developed, well-nourished WM. NAD. LUNGS: Clear to auscultation bilaterally. CARDIOVASCULAR: Irregular rhythm with controlled rate. NEUROLOGIC: A&O x3. No focal neurological deficits. SKIN: Back incision dressed and IDA drain visualized with serosanguineous output Results & Data Results & Data ([facility]) Vital Signs (Past 12 Hours) Vital Signs Temp Pulse Pulse Resp BP BP Pulse Ox 06/19/22 11:18 36.5 C 71 16 146/76 H 97 06/19/22 07:39 81 06/19/22 07:27 36.4 C L 66 16 120/64 93 06/19/22 03:49 106/65 06/19/22 02:53 36.7 C 66 20 90/48 L 92 O2 Del Method 06/19/22 11:18 Room Air 06/19/22 07:39 06/19/22 07:27 Room Air 06/19/22 03:49 06/19/22 02:53 Room Air Laboratory Results 06/19/22 07:16 06/19/22 07:16 PG Care Time/CCT Total # of Minutes Spent Total Time Spent with Patient: Total time spent is greater than 50% in coordination of care (as documented) at patient's floor/unit and/or counseling patient: Coding Level of Care Code INP/OBS CONSULT LVL 5, 80 MIN Diagnoses Neurogenic claudication due to lumbar spinal stenosis M48.062 Atrial fibrillation I48.91 Diabetes mellitus, type 2 E11.9 CAD (coronary artery disease) I25.10 CHF (congestive heart failure) I50.9
[2022-06-19] MEDS ORDERED: traZODone HCL 50 MG TAB PO PRN (12:36)
[2022-06-19] MEDS: oxyCODONE HCL IR 5 MG TAB (IMMEDIATE RELEASE) PO PRN (17:46)
[2022-06-19] MEDS: PANTOprazole 40 MG TAB PO SCH (20:01)
[2022-06-19] MEDS: GABAPENTIN 300 MG CAP PO SCH (20:01)
[2022-06-19] MEDS ORDERED: ENALAPRIL MALEATE 10 MG TAB PO SCH (21:00)
[2022-06-19] MEDS ORDERED: ISOSORBIDE MONO EXTENDED REL 60 MG TABCR PO SCH (21:00)
[2022-06-19 21:15] LABS: Estimated Average Glucose 143 mg/dl; Hemoglobin A1C 6.6 % (4.5-5.6)
[2022-06-20] MEDS ORDERED: INSULIN ASPART PER UNIT SC ONE (02:00)
[2022-06-20] MEDS ORDERED: SODIUM CHLORIDE 0.9% 1000ML 500 ML IV ONE ×3 (03:21→04:28)
[2022-06-20 03:25] LABS: Hematocrit (blood only) 37.9 % (42.0-52.0); Hemoglobin 12.4 g/dl (14.0-18.0)
[2022-06-20 03:28] LABS: Basophils # (auto) 0.04 K/uL (0-0.2); Basophils % (auto) 0.4 %; Eosinophils # (auto) 0.13 K/uL (0-0.50); Eosinophils % (auto) 1.4 %; Hematocrit (blood only) 37.2 % (42.0-52.0); Hemoglobin 12.3 g/dl (14.0-18.0); Immature Granulocytes # (auto) 0.03 K/uL (0.01-0.20); Immature Granulocytes % (auto) 0.3 %; Lymphocytes # (auto) 1.39 K/uL (1.2-3.4); Lymphocytes % (auto) 15.1 %; Mean Corpuscular Hemoglobin 31.5 pg (25.0-34.0); Mean Corpuscular Hgb Conc 33.1 g/dL (32.0-36.0); Mean Corpuscular Volume 95.4 fL (80.0-100.0); Mean Platelet Volume 9.7 fL (9.4-12.4); Monocytes # (auto) 1.06 K/uL (0.11-0.59); Monocytes % (auto) 11.5 %; Neutrophils # (auto) 6.57 K/uL (1.40-6.50); Neutrophils % (auto) 71.3 %; Platelet Count 122 K/uL (130-400); RDW Coefficient of Variation 15.1 % (11.5-14.5); RDW Standard Deviation 52.3 fL (36.4-46.3); White Blood Count 9.22 K/ul (4.8-10.8)
[2022-06-20 03:48] LABS: Albumin Level 3.5 gm/dl (3.4-5.0); Calcium 9.2 mg/dl (8.5-10.1); Creatinine Clr Calc Pharmacy 45.1 ml/min; Est GFR (African American) 48.9 ml/min; Est GFR (Non-African American) 42.2 ml/min; Magnesium 1.5 mg/dl (1.7-2.4); Potassium 4.3 mmol/L (3.5-5.1)
--- NOTE | 2022-06-20 04:23 | Communication Note ---
Date of Service: June 20, 2022 Overnight pt had a 10 beat and 7 beat run of vtach. Was also found to be hypotensive in 80s/40s. Got updated labs. H&H stable. Mag low, replenishing. Ga ve small bolus of IVF given h/o CHF. When seen at bedside, other than back soreness from surgery he was asymptomatic.
[2022-06-20] MEDS ORDERED: ALBUMIN 25% 100 mL 25 GM/100 ML VIAL IV ONE (04:32)
[2022-06-20] MEDS: MAGNESIUM SULFATE / D5W 1 GM/100 ML BAG IV SCH ×2 (05:19→07:08)
[2022-06-20] MEDS: ACETAMINOPHEN 500 MG TAB PO PRN (05:41)
[2022-06-20] MEDS: PANTOprazole 40 MG TAB PO SCH ×2 (08:07→20:23)
[2022-06-20] MEDS: INSULIN ASPART PER UNIT SC SCH ×4 (08:09→20:26)
--- NOTE | 2022-06-20 08:10 | Orthopedic Progress Note ---
Date of Service June 20, 2022 Assessment & Plan (1) Neurogenic claudication due to lumbar spinal stenosis: Plan: At this time once he becomes more normal tensive we will continue with physical therapy and ambulation as tolerated. We will observe him throughout the week and hopefully discharge Wednesday. Admission and Anticipated Discharge Date Admission Date: June 18, 2022 Subjective Patient's back pain is controlled leg symptoms improved. He had episode of hypotensive last night he is feels much better this morning. Physical Exam Physical Exam: Patient is alert and oriented. He is sitting up at the bedside. He has good strength testing. Appears comfortable. Results & Data ([facility]) Vital Signs (Past 12 Hours) Vital Signs Temp Pulse Pulse Resp BP BP Pulse Ox 06/20/22 07:03 36.7 C 61 18 93/48 L 93 06/20/22 06:50 90/50 L 06/20/22 06:00 110/61 06/20/22 04:15 80/33 L 76/47 L 06/20/22 02:37 36.7 C 76 16 85/47 L 97 06/19/22 23:00 36.6 C 62 20 120/84 97 06/19/22 22:05 70 O2 Del Method 06/20/22 07:03 Room Air 06/20/22 06:50 06/20/22 06:00 06/20/22 04:15 06/20/22 02:37 Room Air 06/19/22 23:00 Room Air 06/19/22 22:05
[2022-06-20] MEDS ORDERED: APIXABAN 2.5 MG TAB PO SCH (09:00)
[2022-06-20] MEDS ORDERED: METOPROLOL SUCC 25MG EXT REL TAB PO SCH (09:00)
[2022-06-20] MEDS: APIXABAN 2.5 MG TAB PO SCH ×2 (09:06→20:23)
--- NOTE | 2022-06-20 10:19 | Hospitalist Progress Note ---
Date of Service June 20, 2022 Assessment & Plan (1) Hypotension: Plan: - Episode overnight, asymptomatic, with nonsustained run of vtach - Hydrated with 1.5L of NSS and a dose of IV Albumin - BP medications placed on hold today - Labs drawn, Mag 1.5, replacement ordered - Pt mentioned some chest pressure this AM, for which an EKG and hsTrop has been ordered - Of note, pt had a holter monitor back in Mar prior to receiving cardiac clearance for surgery which was noted to have episodes of nonsustained vtach versus abberancy - Hypotension is likely multifactorial - anesthesia, narcotics, multiple BP meds - Has had a h/o of having to have his Metoprolol and Ramipril discontinued May 2021 d/t soft pressures following his carotid artery stenting (2) Neurogenic claudication due to lumbar spinal stenosis: Plan: s/p L4-5 decompression and fusion 06/18/[address] Celaya - POD#2 - doing well - DVT ppx will be covered by resumption of Eliquis - Pain control and drain management as ordered by Dr. Celaya - Recommend utilizing IS q1-2h while awake - PT/OT eval - CM to assist in dc planning (3) Atrial fibrillation: Plan: - Permanent afib, rate controlled - Continue Metoprolol Succinate 100mg daily - Resumed Eliquis 06/20 (on 2.5mg BID d/t h/o epistaxis) (4) Diabetes mellitus, type 2: Plan: - Hemoglobin A1c is pending - Currently on Lantus 58 units HS and Ozempic at home - Pharmacy has been consulted for glycemic management - Will transition back to HS Lantus tomorrow to get ready for dc - Carb consistent diet and accuchecks ac and hs - Would assume pt also with a degree of CKD d/t microvascular disease with creat of 1.4 (no prior records for comparison) (5) CAD (coronary artery disease): Plan: - H/o CAD s/p CABG in 1995, coronary stenting, NSTEMI, HTN, HLD, Carotid stenos is, and PAD - Last echo October 2021- EF 55-60%, severe LVH, mild-mod MR, moderate TR, dilated RV, and RV/PA pressure mod to severely elevated at 55-60 mmHg - Last stress test in August 2021, stented in the saphenous vein graft - Holding Imdur, Ramipril, and Metoprolol d/t hypotension - Discussed resumption of Eliquis with Dr. Celaya, plan to resume on 06/20 - According to cardiology note from Mar 2022, pt is also to be on Plavix 3x per week ? - Follow up as planned with established free lance model (6) CHF (congestive heart failure): Plan: - Compensated - No overt signs of volume overload - Hold diuretics for now d/t hypotension Plan No further recommendations at this time other than as outlined above. Will continue to follow. Patient is considered high risk due to hypotension and receiving prn IV narcotics. Above plan of care has been d/w Dr. Mario. Admission and Anticipated Discharge Date Admission Date: June 18, 2022 Subjective Patient seen on daily rounds this morning. He is resting comfortably in bed, mentions some chest pressure rated 5/10, but states "it's not like when I had my heart attack." He denies shortness of breath beyond his baseline. Back pain is controlled and he has no leg pain. Physical Exam Physical Exam: GENERAL: 77 yo Well-developed, well-nourished WM. NAD. LUNGS: Clear to auscultation bilaterally. CARDIOVASCULAR: Irregular rhythm with controlled rate. NEUROLOGIC: A&O x3. No focal neurological deficits. SKIN: Back incision dressed and IDA drain visualized with serosanguineous output Results & Data Results & Data ([facility]) Vital Signs (Past 12 Hours) Vital Signs Temp Pulse Resp BP BP Pulse Ox O2 Del Method 06/20/22 07:03 36.7 C 61 18 93/48 L 93 Room Air 06/20/22 06:50 90/50 L 06/20/22 06:00 110/61 06/20/22 04:15 80/33 L 76/47 L 06/20/22 02:37 36.7 C 76 16 85/47 L 97 Room Air 06/19/22 23:00 36.6 C 62 20 120/84 97 Room Air Laboratory Results 06/20/22 03:01 06/20/22 03:01 PG Care Time/CCT Total # of Minutes Spent Total Time Spent with Patient: Total time spent is greater than 50% in coordination of care (as documented) at patient's floor/unit and/or counseling patient: Coding Level of Care Code 78302 SUB INP/OBS CARE MIN Diagnoses Hypotension I95.9 Neurogenic claudication due to lumbar spinal stenosis M48.062 Atrial fibrillation I48.91 Diabetes mellitus, type 2 E11.9 CAD (coronary artery disease) I25.10 CHF (congestive heart failure) I50.9
--- NOTE | 2022-06-20 11:46 | Electrocardiogram Report ---
Test Reason : Blood Pressure : / mmHG Vent. Rate : 062 BPM Atrial Rate : 141 BPM P-R Int : 000 ms QRS Dur : 096 ms QT Int : 414 ms P-R-T Axes : 000 076 -06 degrees QTc Int : 420 ms Atrial fibrillation Low voltage QRS Nonspecific ST abnormality Abnormal ECG No previous ECGs available Confirmed by Blake Andrea ([id number]) on 06/20/2022 11:45:35 AM Referred By: Augustine Celaya Confirmed By:Blake Andrea
[2022-06-20] MEDS ORDERED: POLYETHYLENE (MIRALAX) 17 GM PACK PO PRN (17:58)
[2022-06-20] MEDS ORDERED: FAMOTIDINE 40 MG TABLET PO ONE (17:59)
[2022-06-20] MEDS: oxyCODONE HCL IR 5 MG TAB (IMMEDIATE RELEASE) PO PRN (19:43)
[2022-06-20] MEDS: rOPINIRole HCL 0.25 MG TABLET PO SCH (20:23)
[2022-06-20] MEDS: DOCUSATE SODIUM 100 MG CAP PO SCH (20:23)
[2022-06-20] MEDS: GABAPENTIN 300 MG CAP PO SCH (20:23)
[2022-06-20] MEDS: LANTUS PER UNIT CHARGE SQ SCH (20:26)
[2022-06-20] MEDS ORDERED: ISOSORBIDE MONO EXTENDED REL 30 MG TABCR PO SCH (21:00)
[2022-06-21] MEDS: oxyCODONE HCL IR 5 MG TAB (IMMEDIATE RELEASE) PO PRN ×2 (03:19→18:30)
[2022-06-21] MEDS: INSULIN ASPART PER UNIT SC SCH ×4 (08:30→21:55)
[2022-06-21] MEDS: APIXABAN 2.5 MG TAB PO SCH ×2 (08:31→21:39)
[2022-06-21] MEDS: PANTOprazole 40 MG TAB PO SCH ×2 (08:31→21:39)
[2022-06-21] MEDS: DOCUSATE SODIUM 100 MG CAP PO SCH ×2 (08:33→21:39)
[2022-06-21] MEDS: METOPROLOL SUCC 50MG EXT REL TAB PO SCH (09:27)
--- NOTE | 2022-06-21 09:56 | Hospitalist Progress Note ---
Date of Service June 21, 2022 Assessment & Plan (1) Hypotension: Plan: - Episode 06/20 early AM, asymptomatic, with nonsustained run of vtach - Hydrated with 1.5L of NSS and a dose of IV Albumin - BP medications placed on hold today - Labs drawn, Mag 1.5, replacement ordered - Pt mentioned some chest pressure this AM, for which an EKG and hsTrop has been ordered - Of note, pt had a holter monitor back in Mar prior to receiving cardiac clearance for surgery which was noted to have episodes of nonsustained vtach versus abberancy - Hypotension is likely multifactorial - anesthesia, narcotics, multiple BP meds - Has had a h/o of having to have his Metoprolol and Ramipril discontinued May 2021 d/t soft pressures following his carotid artery stenting - No further episodes of hypotension - BP this AM 148/72 and HR 115, will start with resuming Metoprolol Succinate 100mg daily, continue to hold imdur and ramipril (2) Neurogenic claudication due to lumbar spinal stenosis: Plan: s/p L4-5 decompression and fusion 06/18/[address] Celaya - POD#2 - doing well - DVT ppx will be covered by resumption of Eliquis - Pain control and drain management as ordered by Dr. Celaya - Recommend utilizing IS q1-2h while awake - PT/OT eval - CM to assist in dc planning (3) Atrial fibrillation: Plan: - Permanent afib, rate controlled - Continue Metoprolol Succinate 100mg daily - Resumed Eliquis 06/20 (on 2.5mg BID d/t h/o epistaxis) (4) Diabetes mellitus, type 2: Plan: - Hemoglobin A1c is pending - Currently on Lantus 58 units HS and Ozempic at home - Pharmacy has been consulted for glycemic management - Will transition back to HS Lantus tomorrow to get ready for dc - Carb consistent diet and accuchecks ac and hs - Would assume pt also with a degree of CKD d/t microvascular disease with creat of 1.4 (no prior records for comparison) (5) CAD (coronary artery disease): Plan: - H/o CAD s/p CABG in 1995, coronary stenting, NSTEMI, HTN, HLD, Carotid stenosis, and PAD - Last echo October 2021- EF 55-60%, severe LVH, mild-mod MR, moderate TR, dilated RV, and RV/PA pressure mod to severely elevated at 55-60 mmHg - Last stress test in August 2021, stented in the saphenous vein graft - Holding Imdur, Ramipril, and Metoprolol d/t hypotension - Discussed resumption of Eliquis with Dr. Celaya, plan to resume on 06/20 - According to cardiology note from Mar 2022, pt is also to be on Plavix 3x per week ? - Follow up as planned with established microbiology director (6) CHF (congestive heart failure): Plan: - Compensated - No overt signs of volume overload - Hold diuretics for now d/t hypotension Plan No further recommendations at this time other than as outlined above. Resume Metoprolol and monitor BP/HR. Continue to hold other antihypertensives. Above plan of care has been d/w Dr. Mario. Admission and Anticipated Discharge Date Admission Date: June 18, 2022 Subjective Patient seen this morning. He is resting in bed, reports back pain is con trolled. No c/o chest pain this morning. Physical Exam Physical Exam: GENERAL: 77 yo Well-developed, well-nourished WM. NAD. LUNGS: Clear to auscultation bilaterally. CARDIOVASCULAR: Irregular rate and rhythm NEUROLOGIC: A&O x3. No focal neurological deficits. SKIN: Back incision dressed and IDA drain visualized with serosanguineous output Results & Data Results & Data ([facility]) Vital Signs (Past 12 Hours) Vital Signs Temp Pulse Pulse Resp BP Pulse Ox O2 Del Method 06/21/22 07:59 36.9 C 86 18 148/72 H 93 Room Air 06/21/22 02:57 37.0 C 90 20 125/69 93 Room Air 06/20/22 23:33 76 06/20/22 22:38 36.6 C 88 20 130/72 95 Room Air PG Care Time/CCT Total # of Minutes Spent Total Time Spent with Patient: Total time spent is greater than 50% in coordination of care (as documented) at patient's floor/unit and/or counseling patient: Coding Level of Care Code 97583 SUB INP/OBS CARE 2/35MIN Diagnoses Hypotension I95.9 Neurogenic claudication due to lumbar spinal stenosis M48.062 Atrial fibrillation I48.91 Diabetes mellitus, type 2 E11.9 CAD (coronary artery disease) I25.10 CHF (congestive heart failure) I50.9
--- NOTE | 2022-06-21 10:59 | Orthopedic Progress Note ---
Date of Service June 21, 2022 Assessment & Plan (1) Neurogenic claudication due to lumbar spinal stenosis: Plan: At this time we will continue physical therapy discontinue his drain today. If cleared by medicine he was a candidate to return home tomorrow. Admission and Anticipated Discharge Date Admission Date: June 18, 2022 Subjective Back pain controlled leg pain improved Physical Exam Physical Exam: Patient is very comfortable. Is constricted testing. Results & Data ([facility]) Vital Signs (Past 12 Hours) Vital Signs Temp Pulse Pulse Resp BP Pulse Ox O2 Del Method 06/21/22 07:59 36.9 C 86 18 148/72 H 93 Room Air 06/21/22 02:57 37.0 C 90 20 125/69 93 Room Air 06/20/22 23:33 76
--- NOTE | 2022-06-21 12:15 | Pharmacy Report ---
Pharmacy Glycemic Short Note 2 - Date of Service June 21, 2022 - Glycemic Short BSG Results (Last 24 hours): 06/20/22 06/20/22 06/21/22 16:09 20:06 07:19 POC Glucose 126 H 201 H 115 H 06/21/22 11:15 POC Glucose 129 H OUTPATIENT ANTIDIABETIC REGIMEN: * Lantus 58 units SQ HS * Ozempic 1 mg weekly - last dose was 06/14/22 * HbA1c = ASSESSMENT: 06/21/22 * Patient's BSGs yesterday were [id number] mg/dL. Patient received 50 units of insulin (30 units of basal and 20 units of bolus). * Fasting today is 115 mg/dL. * Fasting stable so continue basal. BSGs steady throughout the day except for o ne BSG out of range. Continue Novolog. BACKGROUND * 77 y/o M admitted for lumbar decompression surgery yesterday. Patient with history of Type 2 diabetes managed at home on basal insulin and weekly Ozempic SQ. Will hold Ozempic while admitted. * He received IV Dexamethasone 4 mg x1 during surgery yesterday. BSGs trended up to 172 mg/dl at HS. * Basal insulin 25 units given last night based on wt and stress of 3. Novolog was started based on wt and stress of 2 but looser carb ratio. * An additional 10 units of basal given this morning to total about 60% of home dose. For tonight, will order basal scale based on BSG. * Novolog carb ratio tightened slightly with breakfast today. PLAN FOR INPATIENT GLYCEMIC CONTROL: * Hold outpatient oral diabetes medications * Basal insulin * Lantus 30 units SQ HS * Bolus insulin * NovoLog per scale ACHS or Q6hrs while NPO. Also added 02:00 check * Goal Range: Low 110 mg/dL - High 140 mg/dL * Correction Factor: 25 mg/dL/unit * Nutritional / Prandial insulin per carb ratio of 1 unit per 8 grams CHO consumed
[2022-06-21] MEDS ORDERED: POLYETHYLENE (MIRALAX) 17 GM PACK PO SCH (19:30)
[2022-06-21] MEDS: rOPINIRole HCL 0.25 MG TABLET PO SCH (19:39)
[2022-06-21] MEDS ORDERED: bisacodyL 10 MG SUPP PR PRN (20:38)
[2022-06-21] MEDS: GABAPENTIN 300 MG CAP PO SCH (21:39)
[2022-06-21] MEDS: POLYETHYLENE (MIRALAX) 17 GM PACK PO SCH (21:40)
[2022-06-21] MEDS: LANTUS PER UNIT CHARGE SQ SCH (21:54)
[2022-06-22] MEDS: APIXABAN 2.5 MG TAB PO SCH (08:44)
[2022-06-22] MEDS: PANTOprazole 40 MG TAB PO SCH (08:45)
[2022-06-22] MEDS: DOCUSATE SODIUM 100 MG CAP PO SCH (08:46)
[2022-06-22] MEDS: INSULIN ASPART PER UNIT SC SCH ×3 (08:46→17:28)
[2022-06-22] MEDS: POLYETHYLENE (MIRALAX) 17 GM PACK PO SCH ×2 (08:47→13:19)
[2022-06-22] MEDS: METOPROLOL SUCC 50MG EXT REL TAB PO SCH (09:19)
--- NOTE | 2022-06-22 10:14 | Hospitalist Progress Note ---
Date of Service June 22, 2022 Assessment & Plan (1) Hypotension: Plan: - Episode 06/20 early AM, asymptomatic, with nonsustained run of vtach - Hydrated with 1.5L of NSS and a dose of IV Albumin - BP medications placed on hold today - Labs drawn, Mag 1.5, replacement ordered - Pt mentioned some chest pressure this AM, for which an EKG and hsTrop has been ordered - Of note, pt had a holter monitor back in Nov prior to receiving cardiac clearance for surgery which was noted to have episodes of nonsustained vtach versus abberancy - Hypotension is likely multifactorial - anesthesia, narcotics, multiple BP meds - Has had a h/o of having to have his Metoprolol and Ramipril discontinued May 2021 d/t soft pressures following his carotid artery stenting - No further episodes of hypotension - BP 06/21 148/72 and HR 115, resumed Metoprolol Succinate 100mg daily, now with 2.5 s pause and brief asuncion into 30s (asymptomatic), I have a call out to cutter brake lining - continue to hold imdur and ramipril (2) Neurogenic claudication due to lumbar spinal stenosis: Plan: s/p L4-5 decompression and fusion 06/18/[address] Celaya - POD#4 - doing well - DVT ppx will be covered by resumption of Eliquis - Pain control and drain management as ordered by Dr. Celaya - Recommend utilizing IS q1-2h while awake - PT/OT eval recommending home with family and HH - CM to set up home health (3) Atrial fibrillation: Plan: - Permanent afib, rate controlled - Continue Metoprolol Succinate 100mg daily - Resumed Eliquis 06/20 (on 2.5mg BID d/t h/o epistaxis) (4) Diabetes mellitus, type 2: Plan: - Hemoglobin A1c is pending - Currently on Lantus 58 units HS and Ozempic at home - Pharmacy has been consulted for glycemic management - Will transition back to HS Lantus tomorrow to get ready for dc - Carb consistent diet and accuchecks ac and hs - Would assume pt also with a degree of CKD d/t microvascular disease with creat of 1.4 (no prior records for comparison) (5) CAD (coronary artery disease): Plan: - H/o CAD s/p CABG in 1995, coronary stenting, NSTEMI, HTN, HLD, Carotid stenosis, and PAD - Last echo October 2021- EF 55-60%, severe LVH, mild-mod MR, moderate TR, dilated RV, and RV/PA pressure mod to severely elevated at 55-60 mmHg - Last stress test in August 2021, stented in the saphenous vein graft - Holding Imdur, Ramipril, and Metoprolol d/t hypotension - Discussed resumption of Eliquis with Dr. Celaya, plan to resume on 06/20 - According to cardiology note from Mar 2022, pt is also to be on Plavix 3x per week ? - Follow up as planned with established cutter brake lining (6) CHF (congestive heart failure): Plan: - Compensated - No overt signs of volume overload - Hold diuretics for now d/t hypotension Plan No further recommendations at this time other than as outlined above. He is overall medically stable, his nonsustained vtach is not new, this has been going on since his holter monitor and was documented in his cardiology clearance letter from March 2022. However, given his bradycardic spells on BB, although asymptomatic, and now with reported pause, pt may need to be considered for PPM placement. I have a call out to his cutter brake lining to arrange for a follow up appointment sooner than is presently scheduled (pt believes he has one scheduled in August). Also to d/w cardiology a dose of Metoprolol to send him home on. For now, I am reducing his Metoprolol dose to 50mg daily as he still need some form a rate reducing agent to manage his afib. In the event that the cutter brake lining wants something different, I will call the patient and let him know. New rx has been sent to his pharmacy on file. Above plan of care has been d/w Dr. Mario who is in agreement. Admission and Anticipated Discharge Date Admission Date: June 18, 2022 Subjective Patient seen on daily rounds this morning. Just completed therapy this morning, reports some back soreness but overall pain is controlled. He denies chest pain or dyspnea. Notified by RN this morning that he had a 2.5 second pause on the monitor and another nonsustained run of vtach (8 beats). HR was in the 30s this AM, pt asymptomatic, Metoprolol held. Physical Exam Physical Exam: GENERAL: 77 yo Well-developed, well-nourished WM. NAD. LUNGS: Clear to auscultation bilaterally. CARDIOVASCULAR: Irregular rhythm with controlled rate NEUROLOGIC: A&O x3. No focal neurological deficits. SKIN: Back incision dressed, dry. Results & Data Results & Data ([facility]) Vital Signs (Past 12 Hours) Vital Signs Temp Pulse Resp BP BP Pulse Ox O2 Del Method 06/22/22 07:26 Room Air 06/22/22 07:03 36.8 C 51 L 18 125/76 93 Room Air 06/22/22 04:29 36.8 C 72 19 152/69 H 94 Room Air PG Care Time/CCT Total # of Minutes Spent Total Time Spent with Patient: Total time spent is greater than 50% in coordination of care (as documented) at patient's floor/unit and/or counseling patient: Coding Level of Care Code 33795 SUB INP/OBS CARE 2/35MIN Diagnoses Hypotension I95.9 Neurogenic claudication due to lumbar spinal stenosis M48.062 Atrial fibrillation I48.91 Diabetes mellitus, type 2 E11.9 CAD (coronary artery disease) I25.10 CHF (congestive heart failure) I50.9
--- NOTE | 2022-06-22 10:44 | Discharge Summary ---
Date of Service June 22, 2022 Admission HPI Per Admitting Provider This is a 77-year-old male who presents with chronic persistent back and leg Pain after failing course of nonoperative care is here for surgical intervention. Principal Diagnosis Lumbar spinal stenosis with remaining spondylosis and neurogenic claudication Discharge Data Allergies Allergy/AdvReac Type Severity Reaction Status Date / Time No Known Allergies Allergy Verified 06/18/22 06:49 Consultations 06/19/22 07:45 Consult Medical [Consult Internal Medicine] Routine Procedures Performed Operation Date: 06/18/22 07:45 Actual Procedures p L4-L5 Decompression and Fusion, Spinal Cord Monitoring(Not Applicable) - Augustine Celaya DO Ordered Studies 06/18/22 07:00 FL lumbar spine 2-3V Routine Hospital Course (1) Neurogenic claudication due to lumbar spinal stenosis: Patient underwent lumbar decompression fusion tolerated this well was taken to the PCU postoperative. Postoperatively he progressed appropriately throughout his stay steadily increasing his strength. IDA drain decreasing appropriate. Improving with therapy. Excellent strength testing. Simply discharged home. Discharge orders instructions found in chart for further review. Total Time Total Time Spent Total Time Spent (In Minutes): 20 minutes Discharge Plan Discharge Items Patient Disposition: Home - Self-Care Reason For Visit: Spinal Stenosis Lumbar Region with Neurogenic Dali Discharge Diagnosis: Lumbar spinal stenosis with radiculopathy Activity: As commented below Non-emergency contact: Primary Care Provider Call non-emergency contact if: you have any medication questions Follow-up/Referrals: PCP,NO [Physician] - Diet: Regular Addtl Attending Provider Instructions: ACTIVITY RECOMMENDATIONS: SELF CARE INSTRUCTIONS AFTER THORACIC/LUMBAR FUSIONS 1. You may walk to your tolerance. It is good exercise for your legs and back. Expect some back and intermittent leg aches and pains. 2. You may perform "counter-top" level activities (make a sandwich, enrique with a project, etc.). 3. No bending or lifting of more than 10 pounds or back twisting of any nature (roll like a log when turning in bed). 4. You may ride in a car for 20-30 minutes at a time. No driving until after your first visit with your doctor. 5. Frequent changes of position and restricting sitting to 30 minutes at a time will help limit the amount of back spasms and stiffness you may experience. 6. You may discontinue the use of ambulatory aids (cane, crutches, etc.) once your strength and confidence allow. 7. You may advertising account representative the shower and let water strike your incision when you arrive home at least once daily. Do not take a tub bath, sit in a hot tub or go into a swimming pool until after your first recheck in the office. SPECIAL CARE INSTRUCTIONS: VERY IMPORTANT TO READ AND REVIEW A. Your surgical incision has been closed with a cosmetic suture under the skin that will dissolve in about 6 weeks. In 14 days, you can use a pair of clean scissors and cut the suture that is left outside of the skin at the ends of your incision. 1. The small skin tapes can be removed 7 days after surgery if they have not fallen off by that point. 2. You may keep the wound open to air as much as possible to promote healing after post-op day number 5 unless told otherwise by your doctor. 3. If you think the wound looks like it is becoming infected (redness or worsening drainage) and/or you are experiencing fever, chill or worsening back pain and muscle spasms, contact the office so that we may evaluate you as soon as possible. B. Complications are uncommon, but please contact us if you have any signs or symptoms of: 1. wound infection (fever higher than 102.5 degrees F, redness, separation of wound, drainage, or increasing pain from the incision) 2. blood clots in legs (pain, swelling, redness and warmth in legs) 3. urinary tract infection (fever higher than 102.5 degrees F, burning upon urination or increased frequency of urination) 4. nerve problems (inability to walk on your toes or heels, numbness, loss of bowel or bladder control) 5. any other symptoms that concern you C. Please call the office at if you have any concerns or questions about your operation or recovery. D. No smoking! Smoking drastically decreases the chance of a solid fusion. E. Do not take any anti-inflammatory medications (Indocin, Advil, Motrin, Aspirin, Naprosyn, etc.) as these may inhibit the chance of a solid fusion. Tylenol is okay to take for pain. MANAGING PAIN AFTER SPINAL SURGERY 1. Narcotic medication is intended for short-term use and will be provided for surgical pain. Surgical pain usually lasts for a period of 4-6 weeks. Narcotic medication includes Percocet, Vicodin, Darvocet, Tylenol #3 or Lortab. 2. Longer-term pain is more appropriately treated with non-narcotic medication such as Tylenol ES. 3. Muscle spasm is not appropriately treated with narcotics. Muscle relaxers such as Soma, Flexeril or Skelaxin can be used along with Tylenol ES. 4. Remember that we all live with some "aches and pains". This is not unusual or uncommon after an injury or as we get older. a. Back pain is expected and may include muscle spasms for 4 to 6 weeks after surgery. The pain should gradually improve. If the pain worsens for no apparent reason, please contact the office. b. Intermittent leg pain may also be experienced and should not be concerned about unless it worsens for no apparent reason. If so, please contact the office. 5. We will provide appropriate medication within the normal guidelines of their prescribed use. We will also be very cautious and aware of potential abuse and extended duration of patients' medication needs. a. Pain medications are for your comfort and to assist with sleep and rest so that the tissue can heal. They are not provided in order to return to normal activity and should not be used through the day. To do so or worsening pain at night can result from ongoing tissue damage and development of tolerance to the prescribed medicine. 6. Please allow 2-3 days to process refills. Prescriptions will not be mailed but must be picked up at the office. FOLLOW UP VISIT: Keep your scheduled follow-up appointment. Any questions, please call the office at . Pending Studies at Discharge: No Stand-Alone Forms: My [facility], Smoking Cessation Medications and [place] Order Prescriptions: New tramadol 50 mg tablet 50 mg PO Q6H PRN (Reason: pain, moderate) Qty: 30 0RF oxycodone 5 mg tablet 5 mg PO Q6H PRN (Reason: pain, severe) Qty: 30 0RF Eliquis 2.5 mg Tablet 2.5 mg PO BID Qty: 60 0RF Continued metolazone 2.5 mg Tablet 2.5 mg PO 2XWK bumetanide 2 mg Tablet 2 mg PO DAILY PRN (Reason: Edema) trazodone 50 mg Tablet 50 mg PO HS PRN (Reason: Sleep) isosorbide mononitrate 60 mg Tablet Extended Release 24 Hr 60 mg PO PM ropinirole 0.25 mg Tablet 0.25 mg PO HS Rx Instructions: administer 1-3 hours before bedtime pantoprazole 40 mg Tablet,Delayed Release (Dr/Ec) 40 mg PO BID indomethacin 50 mg Capsule 50 mg PO Q8H PRN (Reason: Other) Rx Instructions: administer with food or milk gabapentin 300 mg Capsule 300 mg PO HS ramipril 10 mg Capsule 10 mg PO PM ezetimibe 10 mg Tablet 10 mg PO PM rosuvastatin 10 mg Tablet 10 mg PO 2XWK insulin glargine [Lantus Solostar U-100 Insulin] 100 unit/mL (3 mL) Insulin Pen 58 unit SUBCUT HS Slow-Mag 71.5 mg Tablet,Delayed Release (Dr/Ec) 71.5 mg PO BID potassium chloride 20 mEq Tablet Extended Release 20 meq PO DAILY PRN (Reason: Other) Ozempic 0.25 mg or 0.5 mg(2 mg/1.5 mL) Pen Injector 1 mg SUBCUT WK metoprolol succinate 100 mg Tablet Extended Release 24 Hr 100 mg PO QAM Discontinued Eliquis 2.5 mg Tablet 2.5 mg PO BID Discharge Orders: Discharge Order (Routine); Ordered 06/22/22 Ordered By: Augustine Montero/Other Patient Handouts: Managing Type 2 Diabetes, Special Foot Care for Diabetes Admission Data Admit Date/Time: 06/18/22 10:35 Attending Provider: Augustine Celaya Admit Provider: Augustine Celaya Primary Care Provider: Gala Hawkins Other Providers: Cam Mario
[2022-06-22] MEDS: oxyCODONE HCL IR 5 MG TAB (IMMEDIATE RELEASE) PO PRN ×2 (11:12→17:27)
[2022-06-22] MEDS ORDERED: LANTUS PER UNIT CHARGE SQ SCH (21:00)
== END 2022-06-22 17:22 | disposition home or self-care (01) | DRG 454 ==
LOC: ASU 06:04 → 1E 10:35 → 2S 22:14

== ENCOUNTER 2024-05-24 06:15 | Inpatient (IN) ==
--- NOTE | 2024-04-19 11:48 | PAT Medication Instructions ---
Medication Instructions Date of Service April 19, 2024 Home Medications bumetanide 2 mg tablet 2 mg PO DAILY PRN ezetimibe 10 mg tablet 10 mg PO HS gabapentin 300 mg capsule 300 mg PO HS PRN insulin glargine 100 unit/mL (3 mL) subcutaneous pen (Lantus Solostar U-100 Insulin) 58 unit subcut HS magnesium chloride 71.5 mg (magnesium chloride) tablet,delayed release (Slow- Mag) 71.5 mg PO BID metolazone 2.5 mg tablet 2.5 mg PO 2XWK pantoprazole 40 mg tablet,delayed release 40 mg PO BID potassium chloride 20 mEq tablet,extended release 20 meq PO DAILY PRN ropinirole 0.25 mg tablet 0.25 mg PO HS rosuvastatin 10 mg tablet 10 mg PO UD semaglutide 0.25 mg or 0.5 mg (2 mg/1.5 mL) subcutaneous pen injector (Ozempic) 0.25 mg subcut Q7D trazodone 50 mg tablet 50 mg PO HS PRN aspirin 81 mg capsule 81 mg PO QAM clopidogrel 75 mg tablet 75 mg PO UD fluticasone propionate 50 mcg/actuation nasal spray,suspension 1 spray intranasal HS metoprolol succinate 25 mg tablet,extended release 24 hr 25 mg PO QAM STOP 7 days before surgery semaglutide 0.25 mg or 0.5 mg (2 mg/1.5 mL) subcutaneous pen injector (Ozempic) 0.25 mg subcut Q7D Continue as directed rosuvastatin 10 mg tablet 10 mg PO UD ASK your prescriber and surgeon aspirin 81 mg capsule 81 mg PO QAM clopidogrel 75 mg tablet 75 mg PO UD DO NOT take the morning of surgery bumetanide 2 mg tablet 2 mg PO DAILY PRN magnesium chloride 71.5 mg (magnesium chloride) tablet,delayed release (Slow- Mag) 71.5 mg PO BID metolazone 2.5 mg tablet 2.5 mg PO 2XWK potassium chloride 20 mEq tablet,extended release 20 meq PO DAILY PRN Take morning of surgery With a small sip of water, OTHERWISE NOTHING TO EAT OR DRINK AFTER MIDNIGHT: pantoprazole 40 mg tablet,delayed release 40 mg PO BID metoprolol succinate 25 mg tablet,extended release 24 hr 25 mg PO QAM Take evening before surgery ezetimibe 10 mg tablet 10 mg PO HS gabapentin 300 mg capsule 300 mg PO HS PRN(if needed) insulin glargine 100 unit/mL (3 mL) subcutaneous pen (Lantus Solostar U-100 Insulin) 58 unit subcut HS magnesium chloride 71.5 mg (magnesium chloride) tablet,delayed release (Slow- Mag) 71.5 mg PO BID pantoprazole 40 mg tablet,delayed release 40 mg PO BID ropinirole 0.25 mg tablet 0.25 mg PO HS trazodone 50 mg tablet 50 mg PO HS PRN(if needed) fluticasone propionate 50 mcg/actuation nasal spray,suspension 1 spray intranasal HS Other Notes If you have any questions please call us at [phone] or [phone] or [phone] or [phone]
--- NOTE | 2024-05-01 10:41 | Anesthesiology Consultation ---
Date of Service May 01, 2024 Assessment & Plan (1) Encounter for pre-operative examination: Chart Review Chart Review: Acceptable Risk for Surgery (pending surgeon ordered PCP clearance, most recent cardio visit, most recent carotid testing if available and cardio clearance letter ) and Patient seen in Pre Admission Testing - Awaiting PCP clearance 05/16/24 (Dr Gala Hawkins- [place]) (please fax preop testing to PCP for review) - Please obtain most recent cardio office visit (03/16/24); most recent carotid testing (patient states this was done 03/2024); please also have cardio office refax clearance letter (fax difficult to read) (Dr. Farrukh Lackey) - Check BSG AM DOS - Ozempic instructions: Patient takes on (Sundays). Patient informed at PAT visit to stop 7 days prior to surgery- voiced understanding. Last dose of Ozempic 05/14/23- will be off Ozempic x 10 days by DOS on 05/24/24 Per PAT appt on 05/01/24, no recent illness/disease exposures, illness related symptoms, or recent illness/disease positive tests. Will leave to surgeon's discretion if preop Covid testing needed L4-L5 decompression and fusion 06/18/22= Done under GA with Grade 1 view with MAC #3. ETT #7.5. Atraumatic x 1 Teaching & Discussion Pre-Anesthesia Teaching/Discussion Notes: Instructed NPO after midnight before surgery,except medications with 15 cc of water. Medication instructions provided according to the PAT guidelines. History Surgery Operation Date: 05/24/24 07:45 Proposed Procedures p L4-L5 Decompression, L3-L5 Fusion, Hardware Removal L4-L5, with Spinal Cord Monitoring - Augustine Celaya, Height/Weight Height: 5 ft 6 in Weight: 104.7 kg Allergies Allergy/AdvReac Type Severity Reaction Status Date / Time No Known Allergies Allergy Verified 04/18/24 10:19 Medications Home Medications Medication Instructions Recorded Confirmed Last Taken bumetanide 2 mg tablet 2 mg PO DAILY PRN Edema 06/15/22 04/18/24 06/17/22 07:00 ezetimibe 10 mg tablet 10 mg PO HS 06/15/22 04/18/24 06/16/22 19:00 gabapentin 300 mg capsule 300 mg PO HS PRN Pain 06/15/22 04/18/24 06/16/22 19:00 insulin glargine 100 unit/mL (3 58 unit subcut HS 06/15/22 04/18/24 06/17/22 20:00 mL) subcutaneous pen (Lantus Solostar U-100 Insulin) magnesium chloride 71.5 mg 71.5 mg PO BID 06/15/22 04/18/24 06/10/22 07:00 (magnesium chloride) tablet,delayed release (Slow-Mag) metolazone 2.5 mg tablet 2.5 mg PO 2XWK 06/15/22 04/18/24 06/16/22 07:00 pantoprazole 40 mg tablet,delayed 40 mg PO BID 06/15/22 04/18/24 06/18/22 04:00 release potassium chloride 20 mEq 20 meq PO DAILY PRN Other 06/15/22 04/18/24 06/16/22 19:00 tablet,extended release ropinirole 0.25 mg tablet 0.25 mg PO HS 06/15/22 04/18/24 06/15/22 19:00 rosuvastatin 10 mg tablet 10 mg PO UD 06/15/22 04/18/24 06/15/22 19:00 semaglutide 0.25 mg or 0.5 mg (2 0.25 mg subcut Q7D 06/15/22 04/18/24 06/14/22 20:00 mg/1.5 mL) subcutaneous pen injector (Ozempic) trazodone 50 mg tablet 50 mg PO HS PRN Sleep 06/15/22 04/18/24 06/16/22 20:00 aspirin 81 mg capsule 81 mg PO QAM 04/18/24 04/18/24 Unknown clopidogrel 75 mg tablet 75 mg PO UD 04/18/24 04/18/24 Unknown fluticasone propionate 50 1 spray intranasal HS 04/18/24 04/18/24 Unknown mcg/actuation nasal spray,suspension metoprolol succinate 25 mg 25 mg PO QAM 04/18/24 04/18/24 Unknown tablet,extended release 24 hr Past Medical History Medical History (Updated 05/01/24 @ 11:16 by Cristina Cm PA-C) Atrial fibrillation f/u farrukh mckeon [facility] s/p Watchman device 05/2023 CAD (coronary artery disease) - S/p CABG (LOPEZ to LAD, SVG to diagonal, SVG to marginal, and SVG to RCA) in 1995 - 2002- "multiple stents placed including LM stenting" (no specific details of procedure per records) - September 2011 cath- patent LOPEZ graft to LAD and SVG to diagonal; vein graft to marginal and RCA were occluded; LM stent patent and supplying blood flow to Cx which collateralized the distant RCA (treated with medical therapy since that time) - September 03, 2022- GERSON to vein graft to diagonal branch (had ostial 90% lesion) - On Plavix 3 days week Carotid artery disease S/p stent to right ICA 05/2021 (patent on 10/2021 carotid doppler) CHF (congestive heart failure) Follows with Victoriano De La Cruz > with [facility] EF > 55% on 01/2024 ECHO Diabetes mellitus, type 2 IDDM DVT (deep venous thrombosis) 2020 > can't recall which leg > unknown cause GERD (gastroesophageal reflux disease) well controlled and stable History of COVID-21 May 2019 > not hospitalized, no residual effects History of hypertension [place] (hard of hearing) Hx of gout occ flares- no recent flares Hyperlipidemia NSTEMI (non-ST elevated myocardial infarction) August 2021 PAD (peripheral artery disease) Low extremities - May 2019- underwent multiple stenting and balloon angioplasty procedures by Dr Edu Barnes historian Presence of Watchman left atrial appendage closure device 05/2023, [place] Exercise / Class Metabolic Activity III < 4 Walking/Shop/Light housework (one flight of stairs- no chest pain or SOB- has to go very slow ) Past Family History Family History Mother Diabetes Past Surgical History Surgical History H/O carotid angioplasty May 2021 > right side History of appendectomy age 13 History of cardiac cath - S/p CABG (LOPEZ to LAD, SVG to diagonal, SVG to marginal, and SVG to RCA) in 1995 - 2002- "multiple stents placed including LM stenting" (no specific details of procedure per records) - September 2011 cath- patent LOPEZ graft to LAD and SVG to diagonal; vein graft to marginal and RCA were occluded; LM stent patent and supplying blood flow to Cx which collateralized the distant RCA (treated with medical therapy since that time) - October 2021- GERSON to vein graft to diagonal branch (had ostial 90% lesion) History of colonoscopy History of coronary artery bypass graft 4 vessels in 1995, [facility]; f/u dr. farrukh mckeon, [facility] History of esophagogastroduodenoscopy (EGD) History of lumbar surgery 06/18/22, L4-L5 disectomy and fusion History of repair of rotator cuff left History of tooth extraction all upper teeth Hx of heart surgery 05/2023, placement Watchman device, [place]; f/u farrukh mckeon, [facility] Past Anesthesia History No Hx of Anesthesia Complications and No Family Hx of Anesthesia Complications History of PONV No Hx of PONV and No Hx of Motion Sickness Social History Smoking Status: Former smoker Do You Dip or Chew Tobacco: No (quit 2021) Smoking End Date: 1985 Hx Alcohol Use: Yes (occasional use) Hx Substance Use: No substance use type: does not use Review of Systems - Chronic post nasal drip- occ cough (present x years) - Hx snoring- hx of sleep study around 2021- no HAYDEN per patient Patient denies chest pain, shortness of breath at rest, wheezing, palpitations. No hx of seizures, stroke. No hx of blood transfusions Physical Exam Vital Signs VITALS BP 157/88 P 72 TEMP 97.5 SP02 95% RESP 16 Constitutional no acute distress ENMT Mouth: no TMJ clicking Thyromental Distance: > or= 3.5 Finger Breadths (3.5) Mallampati Class: I Mouth / Teeth: 2 1. Missing Missing all upper teeth Missing bottom molars and see picture Neck + limited neck extension Respiratory normal respiratory effort; no respiratory distress Auscultation: lungs clear to auscultation bilaterally; no wheezes Cardiovascular Heart Sounds: no murmur Vessels: no carotid bruit Irregularly irregular- rate controlled Musculoskeletal Spine: + pain with cervical ROM (mild stiffness ) Extremities: extremities normal to inspection Psychiatric Orientation: alert Lab Results Anesthesia Preop Results Results Anesthesia Widget: 2 WBC 5.61 K/ul (4.8-10.8) 05/01/24 Hgb 15.3 g/dl (14.0-18.0) 05/01/24 Hct 46.5 % (42.0-52.0) 05/01/24 Plt 129 K/uL (130-400) L 05/01/24 Na 137 mmol/L (136-145) 05/01/24 K 4.1 mmol/L (3.5-5.1) 05/01/24 Cl 99 mmol/L (98-107) 05/01/24 CO2 31 mmol/L (21-32) 05/01/24 BUN 38 mg/dl (6-23) H 05/01/24 Creat 1.29 mg/dl (0.6-1.4) 05/01/24 Glucose Level 165 mg/dl (70-99(Fasting)) H 05/01/24 PT 10.9 Seconds (9.0-12.0) 05/01/24 PTT 27 Seconds (21-31) 05/01/24 INR 1.0 (0.9-1.1) 05/01/24 HA1c 7.8 % (4.5-5.6) H 05/01/24 Urine Color Yellow 05/01/24 Urine Appearance Turbid (Clear) A 05/01/24 Urine pH 7.0 (4.5-7.5) 05/01/24 Urine Specific [place] 1.020 (1.000-1.030) 05/01/24 Urine Protein 3+ (Negative) H 05/01/24 Urine Glucose (UA) Negative (Negative) 05/01/24 Urine Ketones Negative (Negative) 05/01/24 Urine Blood 1+ (Negative) H 05/01/24 Urine Nitrite Negative (Negative) 05/01/24 Urine Bilirubin Negative (Negative) 05/01/24 Urine Urobilinogen Negative (Negative) 05/01/24 Urine Leukocyte Esterase 3+ (Negative) H 05/01/24 Urine WBC (Auto) >50 /hpf (0-5) H 05/01/24 Urine RBC (Auto) 0-2 /hpf (0-2) 05/01/24 Urine Hyaline Casts (Auto) 3-5 /lpf (0-2) H 05/01/24 Urine Epithelial Cells (Auto) 0-2 /hpf (0-2) 05/01/24 Urine Bacteria (Auto) 2+ (None Seen) H 05/01/24 Blood Type O Negative 05/01/24 Antibody Screen NEGATIVE 05/01/24 Testing Laboratory Results Surgeon's office informed of UA results- will leave to surgeon's discretion on how to proceed Electrocardiogram Date: 03/16/24 Findings: + AFIB @ (65bpm) Nonspecific ST abnormality Chest X-Ray Date: 08/20/23 Findings: + NAD s/p median sternotomy and CABG LEFT atrial appendage occlusive device, probably an Amplatzer Amulet Echocardiogram Date: 01/20/24 EF: >55% LV Function: normal Other Findings: + LVH (moderate/concentric ) LA moderately dilated Mild to moderate MR Moderate to severe TR RVSP is elevated at 50-60mmHg Trace AR Single LV filling wave suggests a fib Compared with report of 08/2022- MR worse, TR worse, pulm HTN worse (Discussed pulm HTN/pressures with Dr Flores- patient can still proceed as scheduled) Stress Test Date: 03/23/24 Type: nuclear Perfusion imaging portion of this test is mildly abnormal. Does appear to be small to moderate size moderate intensity reversible defect involving predominantly inferolateral segment and partially involving the inferior wall. This appears to be somewhat similar to previous testing with known history of occluded SVG to RCA and OM LV function is mildly reduced with EF of 48% with slight inferior inferolateral HK and dyskinesis involving the septum EKG portion of this test was felt to be negative for ischemia, nondiagnostic due to baseline changes Patient did develop PVCs in recovery Mild pulse ox desaturation from 100 to 96% Did develop dyspnea with infusion of Lexiscan Cardiac Catheterization Date: 10/01/21 Elevated right-sided filling pressures with preserved cardiac index Severe multivessel [place] coronary disease Vein graft to the PDA and the vein graft to the OM branch were previously known to be occluded and were not injected Vein graft to the diagonal branch has an ostial 90% lesionthis was deemed to be the culprit vessel for the NSTEMI and is now status post GERSON x1 with excellent angiographic result LOPEZ to LAD is widely patent
[2024-05-24] MEDS: LR 15ML/HR IV SCH (07:01)
[2024-05-24] MEDS: ACETAMINOPHEN 500 MG TAB PO SCH (07:01)
[2024-05-24] MEDS: LR 60ML/HR IV SCH (07:01)
[2024-05-24] MEDS: CeleBREX 200 MG CAP PO SCH (07:02)
[2024-05-24] MEDS: GABAPENTIN 300 MG CAP PO SCH (07:02)
[2024-05-24] MEDS ORDERED: LIDOCAINE 2% 2 ML VIAL/AMP(20MG/ML) INFIL ONE (07:03)
[2024-05-24] MEDS ORDERED: DEXAMETHASONE SOD INJ 4 MG/ML VIAL ONE (07:03)
[2024-05-24] MEDS ORDERED: PROPOFOL IV EMULSION 10 MG/ML 20 ML VIAL IV ONE (07:03)
[2024-05-24] MEDS ORDERED: GLYCOPYRROLATE 0.2 MG/ML VIAL ONE (07:03)
[2024-05-24] MEDS ORDERED: ROCURONIUM BROMIDE 10 MG/ML 5 ML VIAL IV ONE (07:03)
[2024-05-24] MEDS ORDERED: ONDANSETRON INJ 2 MG/ML 2 ML VIAL ONE (07:03)
[2024-05-24] MEDS ORDERED: fentaNYL citrate PF 100 MCG/2 ML VIAL ONE ×2 (07:04→09:06)
[2024-05-24] MEDS ORDERED: MIDAZOLAM HCL 1 MG/ML 2ML VIAL ONE (07:04)
[2024-05-24] MEDS ORDERED: SUGAMMADEX SODIUM 200 MG/2 ML VIAL IV ONE (07:06)
[2024-05-24] MEDS ORDERED: PHENYLEPHRINE 100MCG/ML 5ML SYR ONE (07:12)
[2024-05-24] MEDS ORDERED: ePHEDrine sulfate 50 MG/ML AMP IV PRN (07:33)
[2024-05-24] MEDS ORDERED: ATROPINE SULFATE 0.1 MG/ML 10ML SYR IV PRN (07:33)
[2024-05-24] MEDS ORDERED: ONDANSETRON INJ 2 MG/ML 2 ML VIAL IV PRN ×2 (07:33→12:51)
[2024-05-24] MEDS ORDERED: PROMETHAZINE HCL 6.25 MG in SODIUM CHLORIDE 0.9% 50 ML IV PRN (07:33)
--- NOTE | 2024-05-24 07:45 | History & Physical Bridge Note ---
Date of Service May 24, 2024 History & Physical Bridge Note I have examined the patient, reviewed the History & Physical and in the interval since the performance of the History & Physical I have noted the following changes of clinical significance: no changes noted
--- NOTE | 2024-05-24 07:46 | History & Physical Report ---
Date of Service May 24, 2024 Assessment & Plan (1) Lumbosacral spondylosis with radiculopathy: Plan: L4-L5 decompression L3-L5 fusion hardware removal L4-L5 History of Present Illness Chief Complaint: Back and leg pain Primary Care Provider: Gala Hawkins MD This is a 79-year-old male presents with persistent back and leg pain and failing course of nonoperative care is here for surgical invention. Allergies Allergy/AdvReac Type Severity Reaction Status Date / Time No Known Allergies Allergy Verified 05/24/24 06:45 Home Medications Medication Instructions Recorded Confirmed Type bumetanide 2 mg tablet 2 mg PO DAILY PRN Edema 06/15/22 05/24/24 History ezetimibe 10 mg tablet 10 mg PO HS 06/15/22 05/24/24 History gabapentin 300 mg capsule 300 mg PO HS PRN Pain 06/15/22 05/24/24 History insulin glargine 100 unit/mL (3 58 unit subcut HS 06/15/22 05/24/24 History mL) subcutaneous pen (Lantus Solostar U-100 Insulin) magnesium chloride 71.5 mg 71.5 mg PO BID 06/15/22 04/18/24 History (magnesium chloride) tablet,delayed release (Slow-Mag) metolazone 2.5 mg tablet 2.5 mg PO 2XWK 06/15/22 05/24/24 History pantoprazole 40 mg tablet,delayed 40 mg PO BID 06/15/22 05/24/24 History release potassium chloride 20 mEq 20 meq PO DAILY PRN Other 06/15/22 05/24/24 History tablet,extended release ropinirole 0.25 mg tablet 0.25 mg PO HS 06/15/22 05/24/24 History rosuvastatin 10 mg tablet 10 mg PO UD 06/15/22 05/24/24 History semaglutide 0.25 mg or 0.5 mg (2 0.25 mg subcut Q7D 06/15/22 05/24/24 History mg/1.5 mL) subcutaneous pen injector (Ozempic) trazodone 50 mg tablet 50 mg PO HS PRN Sleep 06/15/22 04/18/24 History aspirin 81 mg capsule 81 mg PO QAM 04/18/24 05/24/24 History clopidogrel 75 mg tablet 75 mg PO UD 04/18/24 05/24/24 History fluticasone propionate 50 1 spray intranasal HS 04/18/24 05/24/24 History mcg/actuation nasal spray,suspension metoprolol succinate 25 mg 25 mg PO QAM 04/18/24 05/24/24 History tablet,extended release 24 hr docusate sodium 100 mg capsule 200 mg PO DAILY 05/24/24 05/24/24 History (Colace) Past Med/Surg History Problem List (Updated 05/24/24 @ 07:46 by Augustine Celaya DO) Lumbosacral spondylosis with radiculopathy Hypotension Neurogenic claudication due to lumbar spinal stenosis CAD (coronary artery disease) - S/p CABG (LOPEZ to LAD, SVG to diagonal, SVG to marginal, and SVG to RCA) in 1995 - 2002- "multiple stents placed including LM stenting" (no specific details of procedure per records) - September 2011 cath- patent LOPEZ graft to LAD and SVG to diagonal; vein graft to marginal and RCA were occluded; LM stent patent and supplying blood flow to Cx which collateralized the distant RCA (treated with medical therapy since that time) - October 2021- GERSON to vein graft to diagonal branch (had ostial 90% lesion) Encounter for pre-operative examination Atrial fibrillation Dx over 8 yrs ago > no pacer, on Eliquis CHF (congestive heart failure) Follows with Victoriano Thomas > with [facility] Diabetes mellitus, type 2 Hypertension Medical History (Updated 05/24/24 @ 07:46 by Augustine Celaya DO) [place] (hard of hearing) CAD (coronary artery disease) - S/p CABG (LOPEZ to LAD, SVG to diagonal, SVG to marginal, and SVG to RCA) in 1995 - 2002- "multiple stents placed including LM stenting" (no specific details of procedure per records) - September 2011 cath- patent LOPEZ graft to LAD and SVG to diagonal; vein graft to marginal and RCA were occluded; LM stent patent and supplying blood flow to Cx which collateralized the distant RCA (treated with medical therapy since that time) - September 03, 2022- GERSON to vein graft to diagonal branch (had ostial 90% lesion) - On Plavix 3 days week Presence of Watchman left atrial appendage closure device 05/2023, [place] History of hypertension Diabetes mellitus, type 2 IDDM CHF (congestive heart failure) Follows with Victoriano De La Cruz > with [facility] EF > 55% on 01/2024 ECHO Atrial fibrillation f/u farrukh mckeon [facility] s/p Watchman device 05/2023 NSTEMI (non-ST elevated myocardial infarction) August 2021 PAD (peripheral artery disease) Low extremities - May 2019- underwent multiple stenting and balloon angioplasty procedures by Dr Sorensen Carotid artery disease S/p stent to right ICA 05/2021 (patent on 10/2021 carotid doppler) Hx of gout occ flares- no recent flares GERD (gastroesophageal reflux disease) well controlled and stable DVT (deep venous thrombosis) 2020 > can't recall which leg > unknown cause Poor historian History of COVID-21 May 2019 > not hospitalized, no residual effects Hyperlipidemia Surgical History Hx of heart surgery 05/2023, placement Watchman device, [place]; f/u farrukh mckeon [facility] History of lumbar surgery 06/18/22, L4-L5 disectomy and fusion History of coronary artery bypass graft 4 vessels in 1995, [facility]; f/u dr. farrukh mckeon [facility] History of repair of rotator cuff left History of tooth extraction all upper teeth History of esophagogastroduodenoscopy (EGD) History of colonoscopy History of appendectomy age 13 H/O carotid angioplasty May 2021 > right side History of cardiac cath - S/p CABG (LOPEZ to LAD, SVG to diagonal, SVG to marginal, and SVG to RCA) in 1995 - 2002- "multiple stents placed including LM stenting" (no specific details of procedure per records) - September 2011 cath- patent LOPEZ graft to LAD and SVG to diagonal; vein graft to marginal and RCA were occluded; LM stent patent and supplying blood flow to Cx which collateralized the distant RCA (treated with medical therapy since that time) - October 2021- GERSON to vein graft to diagonal branch (had ostial 90% lesion) Family History Mother Diabetes Social History Smoking Status: Former smoker Tobacco Type: Cigarettes Smoking End Date: 1985; Second Hand Exposure: No; Do You Dip or Chew Tobacco: No (quit 2021); Tobacco Cessation Education Requested by Patient: No Hx Alcohol Use: Yes (occasional use) Hx Substance Use: No Preferred Language: [place]an Communication Ability: Effective Optics Technical Officer Required: No Beliefs That Will Affect Care: None Current Living Situation: Alone Other Information That Helps Us Care for You: No Feels Safe at Home: Yes Safety Concerns: Feels Safe At This Time Assistive Devices: Cane, Denture - Upper, Glasses and Walker Assistive Devices Comment: has dentures, doesn't wear often Physical Exam Physical Exam: Patient alert and oriented heart regular rhythm Lungs clear Results & Data Results & Data Vital Signs (Past 12 Hours) Vital Signs Temp Pulse Resp BP Pulse Ox O2 Del Method 05/24/24 06:50 36.5 C 71 18 142/84 H 97 Room Air
[2024-05-24] MEDS ORDERED: ePHEDrine sulfate 50 MG/ML AMP ONE (08:04)
[2024-05-24] MEDS: BUPIVACAINE/EPINEPHRINE 0.25% 1:200,000 30 ML VIAL ONE (08:40)
[2024-05-24] MEDS: ceFAZolin 330 MG/ML 1 GM VIAL ONE (08:41)
--- NOTE | 2024-05-24 09:25 | Operative Report ---
Post Operative Report Pre & Post Diagnosis Operation Date: 05/24/24 07:45 Pre-Op Diagnosis: #1 lumbar spondylosis with radiculopathy #2 lumbar spinal stenosis with neurogenic claudication #3 facet cyst L3-L4 Post-Op Diagnosis: Same I identified the patient and participated in the time-out.: Yes Procedure Operation Date: 05/24/24 07:45 Actual Procedures #1 removal of posterior instrumentation L4-5. #2 exploration of fusion L4-5. #3 lumbar decompression bilaterally facetectomies and foraminotomies L2-L3 L3- L4. #4 posterior spinal fusion L3-L4. #5 placement posterior instrumentation L3-L5. #6 interbody fusion L3-L4 per #7 placement Spira 13 x 26 mm at L3-L4. #8 placement locally harvested morselized autograft in the posterior lateral gutters. #9 placement of infuse collagen sponge combined with Koros in the posterior lateral gutters and os design and interbody space. #10 application of versa wrap over the exposed dura. Surgeon Augustine Celaya, DO Net Applications Developer Faye Garay Estimated Blood Loss 200 Findings See Below The patient is 5 foot 6 weighing over 104 kg with a BMI in excess of 37. The patient's body of this did contribute to significant technical difficulty required the posterior tractors and longer instruments in order to her arms procedure. This at least 50% increased operative time. Specimens None Indications This is 71-year-old male presents publish diagnosis of failing course of nonoperative care is here for surgical invention. Description of Procedure Patient was met with identified informed consent obtained. Patient was then taken operative suite underwent intubation placed in a prone position on the Meta table top Александр frame. All bony prominences well-padded eyes inspected to ensure no external precipice upon them. This point the lumbar spine was prepped and draped in a sterile fashion. Sharp dissection with the assistance of a cartilage from down to and exposing the lamina transverse processes of L3 and instrumentation L4-L5 bilaterally. Then proceeded move the hardware bilaterally noting fracture of the L5 pedicle screw on the right. The fusion mass appeared to be mature. Informed complete laminectomy of L3 with bilateral medial facetectomies and foraminotomies excision of facet cysts bilaterally. Perform partial laminectomy of L2 with bilateral medial facetectomies to address subarticular stenosis. Pedicle screws were then placed at L3-L4-L5 with assistance of fluoroscopy process lucas placed. By way to transfer approach and right a complete discectomy of L3-L4 was performed endplates guarded to subcortical bleeding bone and a 13 x 26 mm spiral cage filled with os design bone graft apposition. The rods and compressed locked into final position bilaterally. The transverse processes of L3 L4-5 burred to subcortical bleeding bone. Infuse collagen sponge, with Koros and local autograft placed in the posterior lateral gutters. 15 round IDA drain inserted. The incision was then closed with 1 Vicryl the fascia 2-0 Vicryl subcutaneously and 4 Shima for final skin closure. Steri-Strips sterile dressing placed. Patient waken taken to PACU stable condition. Please note spinal cord monitoring was utilized at the procedure no changes noted. Lastly Faye Garay was present at the entire procedure and all the patient positioning complex portion of the surgery and possible closure. I attest to the content of the Intraoperative Record and any orders documented therein. Any exceptions are noted below.
[2024-05-24] MEDS: fentaNYL citrate PF 100 MCG/2 ML VIAL IV PRN (09:55)
[2024-05-24] MEDS: HYDROmorphone INJ 2 MG/ML SYR/VIAL IV PRN (10:15)
--- NOTE | 2024-05-24 10:40 | Fluoroscopy Report ---
FL lumbar spine 2-3V CLINICAL HISTORY: L4-L5 DECOMPRESION L3-L5 FUSION HW REMOVAL L4-L5 COMPARISON STUDY: None FLUOROSCOPY TIME: 11 seconds FLUOROSCOPY IMAGES: 3 EXPOSURE DOSE: 11 mGy FINDINGS: Fluoroscopy was provided for lumbar metallic fusion. IMPRESSION: Intraoperative fluoroscopy. ACT 112: Negative or not required by law. Electronically signed by: Matthew Avalos M.D. 05/24/2024 10:39 AM
--- NOTE | 2024-05-24 12:13 | Anesthesiology Progress Note ---
Date of Service May 24, 2024 Anesthesia Post Procedure Vital Signs Vital Signs: Temp Pulse Resp BP Pulse Ox O2 Del Method O2 Flow Rate 05/24/24 12:00 61 16 141/66 H 93 Nasal Cannula 2 05/24/24 11:45 74 18 164/67 H 95 Nasal Cannula 2 05/24/24 11:30 60 12 124/82 97 Nasal Cannula 2 05/24/24 11:15 64 12 140/74 98 Nasal Cannula 2 05/24/24 11:00 74 12 151/68 H 96 Nasal Cannula 2 05/24/24 10:45 36.4 C L 63 12 141/77 H 98 Nasal Cannula 2 05/24/24 10:35 78 12 147/67 H 98 Nasal Cannula 2 05/24/24 10:25 66 14 142/75 H 97 Nasal Cannula 2 05/24/24 10:15 77 12 153/74 H 96 Nasal Cannula 2 05/24/24 10:05 70 13 145/75 H 97 Nasal Cannula 2 05/24/24 09:55 69 12 140/88 95 Nasal Cannula 2 05/24/24 09:45 68 12 143/67 H 99 Oxymask 3 05/24/24 09:37 36.6 C 73 16 161/82 H 99 Oxymask 6 05/24/24 06:50 36.5 C 71 18 142/84 H 97 Room Air Pain Intensity Back: Pain Intensity: 5 Transfer of Care Handoff Completed per policy Notes Mental Status: alert / awake / arousable and participated in evaluation Patient Amnestic to Procedure: Yes Nausea / Vomiting: adequately controlled Pain: adequately controlled Airway Patency, RR, SpO2: stable & adequate BP & HR: stable & adequate Hydration State: stable & adequate Anesthetic Complications: no major complications apparent
[2024-05-24] MEDS ORDERED: PHARMACY GLYCEMIC MGMT CONSULT PRN (12:51)
[2024-05-24] MEDS ORDERED: BUMETANIDE 1 MG TAB PO PRN (12:51)
[2024-05-24] MEDS ORDERED: ALUMINUM/MAGNESIUM SUSP 30 ML UDC PO PRN (12:51)
[2024-05-24] MEDS ORDERED: traMADol HCL 50 MG TABLET PO PRN (12:51)
[2024-05-24] MEDS ORDERED: SOD PHOSPHATE/SOD BIPHOSPHATE ENEMA 132 ML BTL PR PRN (12:51)
[2024-05-24] MEDS ORDERED: hydrOXYzine HCl 25 MG TAB PO PRN (12:51)
[2024-05-24] MEDS ORDERED: ONDANSETRON 4 MG OD TAB PO PRN (12:51)
[2024-05-24] MEDS ORDERED: HYDROmorphone INJ 1 MG/ML SYRINGE IV PRN (12:51)
[2024-05-24] MEDS ORDERED: GABAPENTIN 300 MG CAP PO PRN (12:51)
[2024-05-24] MEDS ORDERED: NALOXONE HCL 0.4 MG/1 ML VIAL/CARP IV PRN (12:51)
[2024-05-24] MEDS ORDERED: DO NOT ADMINISTER PNEUMOCOCCAL VACCINE PRN (12:51)
[2024-05-24] MEDS ORDERED: LORazepam 0.5 MG TAB PO PRN (12:51)
[2024-05-24] MEDS ORDERED: DO NOT ADMINISTER FLU VACCINE PRN (12:51)
[2024-05-24] MEDS ORDERED: LORazepam 2 MG/1 ML VIAL IV PRN (12:51)
[2024-05-24] MEDS ORDERED: PROMETHAZINE 12.5 MG/50.5 ML BAG IV PRN (12:51)
[2024-05-24] MEDS ORDERED: ACETAMINOPHEN 1,000 MG/100 ML VIAL IV PRN (12:51)
[2024-05-24] MEDS ORDERED: METOCLOPRAMIDE HCL INJ 5 MG/ML 2 ML VIAL IV PRN (12:51)
[2024-05-24] MEDS ORDERED: FAMOTIDINE 20 MG TAB PO PRN (12:51)
[2024-05-24] MEDS ORDERED: bisacodyL 10 MG SUPP PR PRN (12:51)
[2024-05-24] MEDS ORDERED: HYDROmorphone INJ 0.5 MG/0.5 ML SYR IV PRN (12:51)
[2024-05-24] MEDS ORDERED: MAGNESIUM HYDROXIDE SUSP 30 ML UDC PO PRN (12:51)
[2024-05-24] MEDS: ceFAZolin 2000MG 2,000 MG/15 ML SYR IV SCH ×2 (13:43→16:02)
[2024-05-24] MEDS: FLOSEAL HEMOSTATIC MATRIX 10ML TOP ONE (13:44)
[2024-05-24] MEDS: INSULIN ASPART PER UNIT CHARGE SC SCH (14:04)
[2024-05-24] MEDS: LANTUS PER UNIT CHARGE SC ONE (14:04)
--- NOTE | 2024-05-24 14:37 | Pharmacy Report ---
Pharmacy Glycemic Short Note 2 - Date of Service May 24, 2024 - Glycemic Short BSG Results (Last 24 hours): 05/24/24 05/24/24 05/24/24 06:44 09:39 12:40 POC Glucose 125 H 132 H 157 H OUTPATIENT ANTIDIABETIC REGIMEN: * Lantus 58 units SQ HS * Ozempic 0.25mg SQ Q7D * HbA1c 7.8% (05/01/24) ASSESSMENT: * aRul is a 79 YOM admitted status post spinal fusion/decompression with a history fo T2DM. Pharmacy has been consulted to assist with glycemic management while inpatient. * Fasting BSG this AM within goal range, increased some with IV preop dexamethasone 8mg, will give ~0.3units/kg x 1 to cover steroids. Scale at bedtime based on BSGs to cover basal needs. * NovoLog initiated at a weight based stress of 2.5 PLAN FOR INPATIENT GLYCEMIC CONTROL: * Hold outpatient oral diabetes medications * Basal insulin * Lantus 30 units SQ x1 * Lantus 0-20 units SQ based on BSG (see eMAR for additional details) * Bolus insulin * NovoLog per scale ACHS or Q6hrs while NPO * Goal Range: Low 110 mg/dL - High 140 mg/dL * Correction Factor: 25 mg/dL/unit * Nutritional / Prandial insulin per carb ratio of 1 unit per 7 grams CHO consumed
--- NOTE | 2024-05-24 14:45 | Hospitalist Consultation ---
Date of Consultation May 24, 2024 Assessment & Plan (1) Atrial fibrillation: (2) CAD (coronary artery disease): (3) Hypertension: (4) Diabetes mellitus, type 2: (5) Lumbosacral spondylosis with radiculopathy: Plan Mr. Cleveland is a 79M with a PMHx of CHF, afib s/p Watchman procedure, PAD, DMT2, and gout - who presents for elective back surgery with Dr. Celaya. Medicine was consulted for medical management. #Afib/CHF/ CAD Watchman device in place. Continue ASA and plavix. Continue Zetia, metoprolol and crestor. Continue metolazone - next dose 05/26. Bumex 2mg PO is ordered daily prn - last taken Monday 05/22. Usually takes every other day. Reasses in AM pending BMP for bumex needs. #DMT2 Pharmacy glyemic consult per primary team. Hold ozempic. #Lumbar spinal stenosis S/p L4-L5 Decompression, L3-L5 Fusion, Hardware Removal L4-L5 with Dr. Celaya 05/24 Pain control/ dvt proh/ abx/ dc planning per primary team EBL 200. Monitor for acute blood loss anemia - AM CBC Thank you for allowing us to participate in the care of this patient, please reach out with any questions or concerns. Medicine will continue to follow. Supervising Physician Co-Signing Physician Notes I personally saw and examined the patient. I independently reviewed the labs, imaging, problem list, medication list, past medical history and family history. I verified all ba points and agree with Dinora Oropeza PA-C with the following exceptions and/or additions: 79 year old male POD#0 lumbar decompression and fusion O/E HS regular rate, irregular rhythm, no murmurs, Chest CTAB, Abdo SNT A/P CAD - restart clopidogrel when ok from surgical perspective, asa has been restarted in AM, continue metoprolol, continue rosuvastatin twice a week A. fib - s/p Watchman therefore not on anticoagulation CHF - currently appears euvolemic, assess in AM for bumex which he typically takes every other day. Otherwise as above History of Present Illness Reason for Consultation: Medical Management Requesting Physician: Dr. Celaya Attending Physician: Augustine Celaya, DO History of Present Illness Mr. Cleveland is a 79M with a PMHx of CHF, afib s/p Watchman procedure, PAD, DMT2, and gout - who presents for elective back surgery with Dr. Celaya. Patient seen post operatively in room 311. Reports soreness in his back but overall is feeling well. Less numbness and tingling down his legs. Reports good control of his diabetes with sugars ranging from 90-150s. Does not normally wear oxygen, weaned down to room air during my encounter. Takes his bumex prn - but mainly every other day. Last dose was wednesday. Tolerated his lunch without issue of nausea of vomiting. Has not passed gas since surgery. Allergies Allergy/AdvReac Type Severity Reaction Status Date / Time No Known Allergies Allergy Verified 05/24/24 06:45 Home Medications Medication Instructions Recorded Confirmed Type bumetanide 2 mg tablet 2 mg PO DAILY PRN Edema 06/15/22 05/24/24 History ezetimibe 10 mg tablet 10 mg PO HS 06/15/22 05/24/24 History gabapentin 300 mg capsule 300 mg PO HS PRN Pain 06/15/22 05/24/24 History insulin glargine 100 unit/mL (3 58 unit subcut HS 06/15/22 05/24/24 History mL) subcutaneous pen (Lantus Solostar U-100 Insulin) magnesium chloride 71.5 mg 71.5 mg PO BID 06/15/22 04/18/24 History (magnesium chloride) tablet,delayed release (Slow-Mag) metolazone 2.5 mg tablet 2.5 mg PO 2XWK 06/15/22 05/24/24 History pantoprazole 40 mg tablet,delayed 40 mg PO BID 06/15/22 05/24/24 History release potassium chloride 20 mEq 20 meq PO DAILY PRN Other 06/15/22 05/24/24 History tablet,extended release ropinirole 0.25 mg tablet 0.25 mg PO HS 06/15/22 05/24/24 History rosuvastatin 10 mg tablet 10 mg PO UD 06/15/22 05/24/24 History semaglutide 0.25 mg or 0.5 mg (2 0.25 mg subcut Q7D 06/15/22 05/24/24 History mg/1.5 mL) subcutaneous pen injector (Ozempic) trazodone 50 mg tablet 50 mg PO HS PRN Sleep 06/15/22 04/18/24 History aspirin 81 mg capsule 81 mg PO QAM 04/18/24 05/24/24 History clopidogrel 75 mg tablet 75 mg PO UD 04/18/24 05/24/24 History fluticasone propionate 50 1 spray intranasal HS 04/18/24 05/24/24 History mcg/actuation nasal spray,suspension metoprolol succinate 25 mg 25 mg PO QAM 04/18/24 05/24/24 History tablet,extended release 24 hr docusate sodium 100 mg capsule 200 mg PO DAILY 05/24/24 05/24/24 History (Colace) oxycodone 5 mg tablet 5 mg PO Q6H PRN pain #30 tabs 05/24/24 Rx tramadol 50 mg tablet 50 mg PO Q6H PRN pain, moderate 05/24/24 Rx #30 tabs Patient History Medical History (Updated 05/25/24 @ 08:26 by Lupe Holland PA-C) ROSEBUD (hard of hearing) CAD (coronary artery disease) - S/p CABG (LOPEZ to LAD, SVG to diagonal, SVG to marginal, and SVG to RCA) in 1995 - 2002- "multiple stents placed including LM stenting" (no specific details of procedure per records) - September 2011 cath- patent LOPEZ graft to LAD and SVG to diagonal; vein graft to marginal and RCA were occluded; LM stent patent and supplying blood flow to Cx which collateralized the distant RCA (treated with medical therapy since that time) - September 03, 2022- GERSON to vein graft to diagonal branch (had ostial 90% lesion) - On Plavix 3 days week Presence of Watchman left atrial appendage closure device 05/2023Mago History of hypertension Diabetes mellitus, type 2 IDDM CHF (congestive heart failure) Follows with [facility] De La Cruz > with [facility] EF > 55% on 01/2024 ECHO Atrial fibrillation f/u farrukh mckeon [facility] s/p Watchman device 05/2023 NSTEMI (non-ST elevated myocardial infarction) August 2021 PAD (peripheral artery disease) Low extremities - May 2019- underwent multiple stenting and balloon angioplasty procedures by Dr Sorensen Carotid artery disease S/p stent to right ICA 05/2021 (patent on 10/2021 carotid doppler) Hx of gout occ flares- no recent flares GERD (gastroesophageal reflux disease) well controlled and stable DVT (deep venous thrombosis) 2020 > can't recall which leg > unknown cause Poor historian History of COVID-21 May 2019 > not hospitalized, no residual effects Hyperlipidemia Surgical History Hx of heart surgery 05/2023, placement Watchman device, [place]; f/u farrukh mckeon, [facility] History of lumbar surgery 06/18/22, L4-L5 disectomy and fusion History of coronary artery bypass graft 4 vessels in 1995, [facility]; f/u dr. farrukh mckeon [facility] History of repair of rotator cuff left History of tooth extraction all upper teeth History of esophagogastroduodenoscopy (EGD) History of colonoscopy History of appendectomy age 13 H/O carotid angioplasty May 2021 > right side History of cardiac cath - S/p CABG (LOPEZ to LAD, SVG to diagonal, SVG to marginal, and SVG to RCA) in 1995 - 2002- "multiple stents placed including LM stenting" (no specific details of procedure per records) - September 2011 cath- patent LOPEZ graft to LAD and SVG to diagonal; vein graft to marginal and RCA were occluded; LM stent patent and supplying blood flow to Cx which collateralized the distant RCA (treated with medical therapy since that time) - October 2021- GERSON to vein graft to diagonal branch (had ostial 90% lesion) Family History Mother Diabetes Social History Smoking Status: Former smoker Tobacco Type: Cigarettes Smoking End Date: 1985; Second Hand Exposure: No; Do You Dip or Chew Tobacco: No (quit 2021); Tobacco Cessation Education Requested by Patient: No Hx Alcohol Use: Yes (occasional use) Hx Substance Use: No Preferred Language: Andorran Communication Ability: Effective Holistic Nutritionist Required: No Beliefs That Will Affect Care: None Current Living Situation: Alone Other Information That Helps Us Care for You: No Feels Safe at Home: Yes Safety Concerns: Feels Safe At This Time Assistive Devices: None Assistive Devices Comment: has dentures, doesn't wear often Review of Systems Review of Systems: All systems reviewed & are unremarkable except as noted in Subjective Physical Exam Physical Exam: General: NAD, VS as above, lying in bed Resp: normal respiratory effort, lungs clear to auscultation, weaned from 2L to room air during my evaluation CV: afib, rate controlled no murmur, Abd: hypoactive bowel sounds, non tender Extremities: Moves all extremities, no edema. SCDs in place. Neuro: A&O x3, Results & Data Results & Data Vital Signs (Past 12 Hours) Vital Signs Temp Pulse Pulse Resp BP BP Pulse Ox 05/24/24 13:56 97.7 F 73 14 132/74 98 05/24/24 12:35 97.3 F L 65 16 146/77 H 95 05/24/24 12:00 61 16 141/66 H 93 05/24/24 11:45 74 18 164/67 H 95 05/24/24 11:30 60 12 124/82 97 05/24/24 11:15 64 12 140/74 98 05/24/24 11:00 74 12 151/68 H 96 05/24/24 10:45 97.5 F L 63 12 141/77 H 98 05/24/24 10:35 78 12 147/67 H 98 05/24/24 10:25 66 14 142/75 H 97 05/24/24 10:15 77 12 153/74 H 96 05/24/24 10:05 70 13 145/75 H 97 05/24/24 09:55 69 12 140/88 95 05/24/24 09:45 68 12 143/67 H 99 05/24/24 09:37 97.9 F 73 16 161/82 H 99 05/24/24 06:50 97.7 F 71 18 142/84 H 97 O2 Del Method O2 Flow Rate 05/24/24 13:56 Nasal Cannula 2 05/24/24 12:35 Nasal Cannula 2 05/24/24 12:00 Nasal Cannula 2 05/24/24 11:45 Nasal Cannula 2 05/24/24 11:30 Nasal Cannula 2 05/24/24 11:15 Nasal Cannula 2 05/24/24 11:00 Nasal Cannula 2 05/24/24 10:45 Nasal Cannula 2 05/24/24 10:35 Nasal Cannula 2 05/24/24 10:25 Nasal Cannula 2 05/24/24 10:15 Nasal Cannula 2 05/24/24 10:05 Nasal Cannula 2 05/24/24 09:55 Nasal Cannula 2 05/24/24 09:45 Oxymask 3 05/24/24 09:37 Oxymask 6 05/24/24 06:50 Room Air PG Care Time/CCT Total # of Minutes Spent Total Time Spent with Patient: Total time spent is greater than 50% in coordination of care (as documented) at patient's floor/unit and/or counseling patient: Coding Level of Care Code 99322 IN/OBS CONSULT LVL 3,45M Diagnoses Atrial fibrillation I48.91 CAD (coronary artery disease) I25.10 Hypertension I10 Diabetes mellitus, type 2 E11.9 Lumbosacral spondylosis with radiculopathy M47.27
[2024-05-24] MEDS: oxyCODONE HCL IR 5 MG TAB (IMMEDIATE RELEASE) PO PRN (16:11)
[2024-05-24] MEDS: DOCUSATE SODIUM/SENNA 50/8.6MG TAB PO SCH (21:35)
[2024-05-24] MEDS: EZETIMIBE 10 MG TAB PO SCH (21:35)
[2024-05-24] MEDS: PANTOprazole 40 MG TAB PO SCH (21:35)
[2024-05-24] MEDS: MAGNESIUM CHLORIDE W/CALCIUM 64MG DELAYED REL TAB PO SCH (21:35)
[2024-05-24] MEDS: rOPINIRole HCL 0.25 MG TABLET PO SCH (21:35)
[2024-05-24] MEDS: POTASSIUM CHLORIDE CRTAB 20 MEQ TABCR PO PRN (21:35)
[2024-05-24] MEDS: FLUTICASONE PROPIONATE NA SPR 16 GM BTL SCH (21:36)
[2024-05-24] MEDS: LANTUS PER UNIT CHARGE SC SCH (21:45)
[2024-05-25] MEDS: POLYETHYLENE (MIRALAX) 17 GM PACK PO SCH (05:40)
[2024-05-25 06:34] LABS: Basophils # (auto) 0.02 K/uL (0.00-0.20); Basophils % (auto) 0.3 %; Eosinophils # (auto) 0.04 K/uL (0.00-0.50); Eosinophils % (auto) 0.5 %; Hematocrit (blood only) 38.1 % (42.0-52.0); Hemoglobin 12.4 g/dl (14.0-18.0); Immature Granulocytes # (auto) 0.02 K/uL (0.01-0.20); Immature Granulocytes % (auto) 0.3 %; Lymphocytes # (auto) 0.85 K/uL (1.20-3.40); Lymphocytes % (auto) 11.3 %; Mean Corpuscular Hemoglobin 29.8 pg (25.0-34.0); Mean Corpuscular Hgb Conc 32.5 g/dL (32.0-36.0); Mean Corpuscular Volume 91.6 fL (80.0-100.0); Mean Platelet Volume 9.5 fL (9.4-12.4); Monocytes # (auto) 0.79 K/uL (0.11-0.59); Monocytes % (auto) 10.5 %; Neutrophils # (auto) 5.83 K/uL (1.40-6.50); Neutrophils % (auto) 77.1 %; Platelet Count 127 K/uL (130-400); RDW Coefficient of Variation 15.5 % (11.5-14.5); RDW Standard Deviation 51.8 fL (36.4-46.3); Red Blood Count 4.16 M/uL (4.70-6.10); White Blood Count 7.55 K/ul (4.8-10.8)
[2024-05-25 06:45] LABS: Calcium 9.1 mg/dl (8.6-10.3); Creatinine Clr Calc Pharmacy 62.7 ml/min; Magnesium 1.4 mg/dl (1.7-2.4); Potassium 3.7 mmol/L (3.5-5.1)
[2024-05-25] MEDS: ASPIRIN 81 MG ECTAB PO SCH (07:36)
[2024-05-25] MEDS: METOPROLOL SUCC 25MG EXT REL TAB PO SCH (07:36)
--- NOTE | 2024-05-25 08:29 | Hospitalist Progress Note ---
Date of Service May 25, 2024 Assessment & Plan (1) Lumbosacral spondylosis with radiculopathy: Plan: Mr. Cleveland is a 79M with a PMHx of CHF, afib s/p Watchman procedure, PAD, DMT2, and gout - who presents for elective back surgery with Dr. Celaya. Medicine was consulted for medical management. #Lumbar spinal stenosis S/p L4-L5 Decompression, L3-L5 Fusion, Hardware Removal L4-L5 with Dr. Celaya 05/24. EBL 200. WBC wnl Hgb 15.3--> 12.4, EBL 200cc, IDA output 340cc --Suspect acute blood loss anemia from surgery/dilutional aspect from IVF as well. BP stable 135/68 with stable renal function, Cr 1.1. BP this afternoon 155/70 Pain control/bowel regimen per primary service -+BS, denies flatus. remains bowel regimen per primary service. Last dose Ozempic over a week ago as instructed PAT. Reports tyically drinks coffee w/ metamucil at home with good results -Foote in place, monitor to remove once moving bowels Mag checked w/ AM labs given afib/not on AC (watchman below), LOW 1.4, 3gm IV ordered and continue slow mag BID. Remains on metoprolol B12 checked w/ neuropathy/gabapentin use, low normal 346 and 1000mcg PO started/would continue at dc PT/OT consults pending DVT proph: SCDs in place, ASA 81mg resumed for today. On Plavix at baseline but reports takes -- with last dose this past Wednesday. Discussed w/ primary and prefer to hold for now and will monitor to resume (PCP note ok to hold 5-7 days) Monitor labs/exam in AM, hopeful dc next 24-48 hrs pending progress Will follow along with you Call w/ questions/concerns (2) Atrial fibrillation: Plan: continues on metoprolol, rates WELL CONTROLLED was on eliquis/rash and switched to xarelto and was continued as had clot near watchman but has been off as had resorbed per most recent PCP note and remains off given watchman in place. ASA/plavix as outlined above and asa resumed fro today Mag checked/IV/PO replacement in place, K stable and will continue to monitor/keep replete No CP/SOB/palpitations. Consideration to check TSH w/ AM labs checked mag w/ labs as above, IV replacement/continue PO and repeat level in AM Does not appear to be on eliquis any longer per most recent cards note (3) CAD (coronary artery disease): Plan: #Hx CAD/HFmrEF (EF most recently 48% on stress echo in March). Hx Watchman device in place for afib above Hx LOPEZ to LAD in 1995. Stent to carotid in 2021 Aspirin/plavix as outlined Remains on zetia, metoprolol, statin Does NOT appear significantly volume overloaded at present Bumex 2mg PRN -- NOTABLE HAS NOT taken 2 days prior to surgery and weight was 223lb he checked prior to surgery yesterday however given acute blood loss from surgery will defer for now but have placed orders to check STANDING scale weight. Is also on metolazone 2x/week and next dose 05/[address] system and will place on HOLD for now/assess for bumex use but hold off scheduled metolazone unless weight 5+lb above dry weight to prevent dropping BP/develop MILLI w/ above (4) Hypertension: Plan: stable, continues on metoprolol. diuretics as outlined above and will assess volume status in AM (5) Diabetes mellitus, type 2: Plan: #DMT2 Hold ozempic, last dose >1 wk ago, prevention constipation Pharmacy glycemic consult per primary team. (6) Hypomagnesemia: Plan: appears chronic, on BID supplementation but checked w/ AM labs/additional IV replacement ordered and will monitor in AM/increase PO to TID if needed/IV as well No palpitations/issues reported with such (7) B12 deficiency: Plan: checked w/ neuropathy/gabapnetin use low normal/PO supp started Plan Dispo: continued inpatient stay, working on bowel regimen/monitoring blood counts/IDA output and therapy evals pending. hopeful dc next 24-48hrs pending progress. Case discussed w/ primary service and will continue OFF plavix for now and monitor to resume in next 24-48hrs if able (last dose ~6 days ago, PCP ok 5- 7 day hold but has been continued on ASA and takes plavix 3x/weekly). Thank you for allowing us to participate in the care of this patient, please reach out with any questions or concerns. Medicine will continue to follow. Admission and Anticipated Discharge Date Admission Date: May 24, 2024 Supervising Physician Co-Signing Physician Notes The patient was not seen by me. The chart was reviewed. Case discussed with JEAN-PIERRE Burton. Agree with assessment and plan Subjective Evaluated this morning, sitting up in bed. Reports pain ZERO at rest, some incisional pain/pain with movements but leg symptoms MUCH improved. Denies flatus presently/remains on bowel regimen.NO abdominal pain but slightly distended on exam but has good bowel sounds. Reports last took plavix on WEDNESDAY last week, typically takes M-W-F. Discussed will talk w/ Dr Celaya prior to resuming given IDA output/monitoring blood. No CP/SOB, palpitations, 95% on RA. Remains on aspirin Reports last Ozempic >1 wk ago as instructed. Not seen Dr Celaya yet this morning, waiting therapy evals. Questions/concerns addressed at this time. Physical Exam 2 Physical Exam: General: 79 yo male sitting up in bed, reports feeling well/pain well controlled at rest/only having some incisional discomfort, NAD HEENT: head atraumatic, normocephalic, mmm, trachea midline Resp: even, unlabored, slightly diminished in the bases but no wheezing/rales, 95% on RA CV: irregularly irregular, rates 60-70s during encounter, no pitting edema, trace pedal edema, calves nontender, pulses present GI: +BS throughout, soft/slight distension but NONTENDER : foote draining, yellow urine present MSK/Neuro: dressing c/d/i, IDA w/ serosanguineous drainage, b/l LE strength testing acceptable, no confusion/slurred speech/facial droop or focal deficit Psych: AOx3, cooperative/pleasant during encounter Results & Data Results & Data Vital Signs (Past 12 Hours) Vital Signs Temp Pulse Resp BP BP Pulse Ox O2 Del Method 05/25/24 07:45 36.5 C 61 16 135/68 95 Room Air 05/25/24 03:54 36.6 C 87 16 122/72 95 Room Air 05/24/24 23:21 36.4 C L 91 H 18 123/79 93 Room Air 05/24/24 21:45 Room Air Laboratory Results 05/25/24 05:47 05/25/24 05:47 Mag 1.4 B12 346 PG Care Time/CCT Total # of Minutes Spent Total Time Spent with Patient: Total time spent is greater than 50% in coordination of care (as documented) at patient's floor/unit and/or counseling patient: Coding Level of Care Code 29928 SUB INP/OBS CARE 3/50MIN Diagnoses Lumbosacral spondylosis with radiculopathy M47.27 Atrial fibrillation I48.91 CAD (coronary artery disease) I25.10 Hypertension I10 Diabetes mellitus, type 2 E11.9 Hypomagnesemia E83.42 B12 deficiency E53.8
[2024-05-25] MEDS: MAGNESIUM SULFATE / D5W 1 GM/100 ML BAG IV SCH (09:00)
[2024-05-25] MEDS: CYANOCOBALAMIN (B-12) 500 MCG TABLET PO SCH (10:07)
--- NOTE | 2024-05-25 12:29 | Orthopedic Progress Note ---
Date of Service May 25, 2024 Assessment & Plan (1) Lumbosacral spondylosis with radiculopathy: Plan: At this point we will continue physical therapy monitor his IDA output with discharge home in the next few days. Admission and Anticipated Discharge Date Admission Date: May 24, 2024 Subjective Back pain is controlled leg pain markedly improved Physical Exam Physical Exam: Patient is currently in bed. Is comfortable. Discussed when to testing. Results & Data Vital Signs (Past 12 Hours) Vital Signs Temp Pulse Resp BP BP Pulse Ox O2 Del Method 05/25/24 11:47 36.4 C L 58 L 16 155/70 H 95 Room Air 05/25/24 08:24 16 Room Air 05/25/24 07:45 36.5 C 61 16 135/68 95 Room Air 05/25/24 07:25 Room Air 05/25/24 03:54 36.6 C 87 16 122/72 95 Room Air Queries Orthopedic Spine Obesity: Yes
--- NOTE | 2024-05-25 12:32 | Pharmacy Report ---
Pharmacy Glycemic Short Note 2 - Date of Service May 25, 2024 - Glycemic Short BSG Results (Last 24 hours): 05/24/24 05/24/24 05/24/24 12:40 16:12 20:35 Glucose POC Glucose 157 H 267 H 274 H 05/25/24 05/25/24 05/25/24 05:47 08:30 11:17 Glucose 108 H POC Glucose 102 H 106 H OUTPATIENT ANTIDIABETIC REGIMEN: * Lantus 58 units SQ HS * Ozempic 0.25mg SQ Q7D * HbA1c 7.8% (05/01/24) ASSESSMENT: 05/25 * Patient received total of 76 units of insulin yesterday, of which 50 units were basal insulin * Fasting BSG 108 mg/dL - no further steroids ordered, anticipate insulin needs to be much less today. * Will loosen CR slightly today and add scale for basal at HS time to match when patient takes at home 05/24 * Raul is a 79 YOM admitted status post spinal fusion/decompression with a history fo T2DM. Pharmacy has been consulted to assist with glycemic management while inpatient. * Fasting BSG this AM within goal range, increased some with IV preop dexametha sone 8mg, will give ~0.3units/kg x 1 to cover steroids. Scale at bedtime based on BSGs to cover basal needs. * NovoLog initiated at a weight based stress of 2.5 PLAN FOR INPATIENT GLYCEMIC CONTROL: * Hold outpatient oral diabetes medications * Basal insulin * Lantus 20-30 units hs * Bolus insulin * NovoLog per scale ACHS or Q6hrs while NPO * Goal Range: Low 110 mg/dL - High 140 mg/dL * Correction Factor: 25 mg/dL/unit * Nutritional / Prandial insulin per carb ratio of 1 unit per 9 grams CHO consumed
[2024-05-25] MEDS: LANTUS PER UNIT CHARGE SC SCH (21:16)
[2024-05-25] MEDS: traZODone HCL 50 MG TAB PO PRN (23:51)
[2024-05-26] MEDS: diphenhydrAMINE Capsule 25 MG CAP PO PRN (02:01)
[2024-05-26] MEDS: ACETAMINOPHEN 500 MG TAB PO PRN (02:01)
[2024-05-26 06:37] LABS: Hematocrit (blood only) 36.9 % (42.0-52.0); Mean Corpuscular Hemoglobin 29.3 pg (25.0-34.0); Mean Corpuscular Hgb Conc 32.5 g/dL (32.0-36.0); Mean Platelet Volume 9.3 fL (9.4-12.4); Platelet Count 118 K/uL (130-400); RDW Coefficient of Variation 15.9 % (11.5-14.5); White Blood Count 6.92 K/ul (4.8-10.8)
[2024-05-26 06:56] LABS: BUN Creatinine Ratio 30.8 (10-20); Calcium 9.2 mg/dl (8.6-10.3); Creatinine Clr Calc Pharmacy 59.2 ml/min; Potassium 4.1 mmol/L (3.5-5.1)
[2024-05-26 07:07] VITALS: PULSE 61; TEMP 97.5; O2SAT 96
[2024-05-26 07:11] LABS: Thyroid Stimulating Hormone 3.643 uIu/ml (0.300-4.500)
--- NOTE | 2024-05-26 08:14 | Hospitalist Progress Note ---
Date of Service May 26, 2024 Assessment & Plan (1) Lumbosacral spondylosis with radiculopathy: Plan: Mr. Cleveland is a 79M with a PMHx of CHF, afib s/p Watchman procedure, PAD, DMT2, and gout - who presents for elective back surgery with Dr. Celaya. Medicine was consulted for medical management. #Lumbar spinal stenosis S/p L4-L5 Decompression, L3-L5 Fusion, Hardware Removal L4-L5 with Dr. Celaya 05/24. EBL 200. WBC wnl Hgb 15.3--> 12.4 --> 12.0. -- Acute blood loss anemia 2nd to surgery/dilutional aspect from IVF as well and stabilizing IDA output 340cc--> 210cc, planning for removal prior to dc per primary +flatus, no BM yet. Ozempic prior held/can resume once moving bowels recommended Mccall removed, voiding without issue Mag wnl on repeat B12 low normal 346 and PO started/recommend continue at dc ASA continued, plavix to resume on WEDNESDAY per Dr Celaya. He takes M-W- Discussed w/ patient about Bumex given weight above dry but he declined and agreed he will take tonight/monitor weight this and repeat as needed w/ metolazone on wednesday as usual pending weights and rec'd follow up with PCP (2) Atrial fibrillation: Plan: continues on metoprolol, rates WELL CONTROLLED was on eliquis/rash and switched to xarelto and was continued as had clot near watchman but has been off as had resorbed per most recent PCP note and remains off given watchman in place. ASA/plavix as outlined above and asa resumed fro today Mag checked/IV/PO replacement in place and normalized on repeat and to continue BID supp at dc TSH wnl No CP/SOB/palpitations F/u cards as usually doin (3) CAD (coronary artery disease): Plan: #Hx CAD/HFmrEF (EF most recently 48% on stress echo in March). Hx Watchman device in place for afib above Hx LOPEZ to LAD in 1995. Stent to carotid in 2021 Aspirin/plavix as outlined Remained on zetia, metoprolol, statin Does NOT appear significantly volume overloaded at present however weight is UP above dry ~220-225 range and discussed as above to take his bumex this evening when gets home but no significant LE edema or hypoxia and 96% on RA but does have some gut edema and suspect reason for bumex use. To continue through weekend/metolazone as taking. Low salt diet/daily monitoring of weights encouraged (4) Hypertension: Plan: stable, continued on metoprolol. diuretics as outlined above , BP 137/84 prior to dc on last check this afternoon (5) Diabetes mellitus, type 2: Plan: #DMT2 Hold ozempic, last dose >1 wk ago, prevention constipation Pharmacy glycemic consult per primary team. Resume ozempic ONCE MOVING BOWELS (6) Hypomagnesemia: Plan: replaced/resolved, can continue BID at home as to be taking STRONGLY ENSURE COMPLIANCE IN F/U to prevent issues given low 1.4 on check here on 05/25, was 2.0 prior to dc (7) B12 deficiency: Plan: checked w/ neuropathy/gabapnetin use low normal/PO supp started Plan dispo: plan for dc per patient per primary service hospitalist service will sign off please call with any questions/concerns Admission and Anticipated Discharge Date Admission Date: May 24, 2024 Supervising Physician Co-Signing Physician Notes The patient was not seen by me. The chart was reviewed. Case discussed with JEAN-PIERRE Burton. Agree with assessment and plan Subjective Eval this morning, sitting up in chair, feels much improved/reporting going home at supper. Discussed weight/bumex to be provided. He is refusing/declining as 2 hour ride home but agreed to take this evening. Encouraged continued monitoring over weekend/additional daily dosing to prevent issues but 96% on RA and trace -1 le edema, no calf tenderness. Passing gas, no BM. No CP/SOB, plavix to be resumed on Wednesday per primary. Questions/concerns addressed at this time. Physical Exam 2 Physical Exam: General: 79 yo male sitting up in bed, reports feeling well/pain well controlled at rest/only having some incisional discomfort, NAD, plans to dc this evening/supper, IDA to be removed HEENT: head atraumatic, normocephalic, mmm, trachea midline Resp: even, unlabored, slightly diminished in the bases but no wheezing/rales, 96% on RA CV: irregularly irregular, rates 60-70s during encounter, no pitting edema, trace pedal edema, calves nontender, pulses present GI: +BS throughout, soft/slight distension but NONTENDER :voiding spontaneously MSK/Neuro: dressing c/d/i, IDA w/ serosanguineous drainage (less, to be removed), b/l LE strength testing acceptable, no confusion/slurred speech/facial droop or focal deficit Psych: AOx3, cooperative/pleasant during encounter Results & Data Results & Data Vital Signs (Past 12 Hours) Vital Signs Temp Pulse Resp BP Pulse Ox O2 Del Method 05/26/24 07:04 36.4 C L 61 17 137/84 96 Room Air Laboratory Results 05/26/24 06:11 05/26/24 06:11 Mag 2.0 TSH 3.643 PG Care Time/CCT Total # of Minutes Spent Total Time Spent with Patient: Total time spent is greater than 50% in coordination of care (as documented) at patient's floor/unit and/or counseling patient: Coding Level of Care Code 66192 SUB INP/OBS CARE 3/50MIN Diagnoses Lumbosacral spondylosis with radiculopathy M47.27 Atrial fibrillation I48.91 CAD (coronary artery disease) I25.10 Hypertension I10 Diabetes mellitus, type 2 E11.9 Hypomagnesemia E83.42 B12 deficiency E53.8
[2024-05-26] MEDS ORDERED: metOLazone 2.5 MG TABLET PO SCH (09:00)
--- NOTE | 2024-05-26 09:53 | Discharge Summary ---
Date of Service May 26, 2024 Admission HPI Per Admitting Provider This is a 79-year-old male presents with persistent back and leg pain and failing course of nonoperative care is here for surgical invention. Principal Diagnosis Lumbar spondylosis with radiculopathy Discharge Data Allergies Allergy/AdvReac Type Severity Reaction Status Date / Time No Known Allergies Allergy Verified 05/24/24 06:45 Consultations 05/24/24 12:51 Consult Hospitalist Routine Procedures Performed Operation Date: 05/24/24 07:45 Actual Procedures p L4-L5 Decompression, L3-L5 Fusion, Hardware Removal L4-L5, with Spinal Cord Monitoring(Not Applicable) - Augustine Celaya DO Ordered Studies 05/24/24 07:45 FL lumbar spine 2-3V Routine Hospital Course (1) Lumbosacral spondylosis with radiculopathy: Patient underwent lumbar decompression fusion trial as well as taken to orthopedic for postoperative. Postop he progressed appropriately marked improvement of his back and leg pain. IDA drain decreasing. Extra strength testing. Pain well-controlled. Subsidy discharged home. Discharge orders instructions from chart for further view. Total Time Total Time Spent Total Time Spent (In Minutes): 20 minutes Discharge Plan Discharge Items Patient Disposition: Home - Self-Care Reason For Visit: Lumbar Stenosis with Neurogenic Claudication, [place] Discharge Diagnosis: Lumbar spinal stenosis with spondylosis and radiculopathy Activity: As commented below Non-emergency contact: Primary Care Provider Call non-emergency contact if: you have any medication questions Follow-up/Referrals: Glaa Hawkins MD [Primary Care Provider] - Diet: Regular Addtl Attending Provider Instructions: ACTIVITY RECOMMENDATIONS: SELF CARE INSTRUCTIONS AFTER THORACIC/LUMBAR FUSIONS 1. You may walk to your tolerance. It is good exercise for your legs and back. Expect some back and intermittent leg aches and pains. 2. You may perform "counter-top" level activities (make a sandwich, enrique with a project, etc.). 3. No bending or lifting of more than 10 pounds or back twisting of any nature (roll like a log when turning in bed). 4. You may ride in a car for 20-30 minutes at a time. No driving until after your first visit with your doctor. 5. Frequent changes of position and restricting sitting to 30 minutes at a time will help limit the amount of back spasms and stiffness you may experience. 6. You may discontinue the use of ambulatory aids (cane, crutches, etc.) once your strength and confidence allow. 7. You may invoicing specialist the shower and let water strike your incision when you arrive home at least once daily. Do not take a tub bath, sit in a hot tub or go into a swimming pool until after your first recheck in the office. 8. You may resume previous diet. SPECIAL CARE INSTRUCTIONS: VERY IMPORTANT TO READ AND REVIEW A. Your surgical incision has been closed with a cosmetic suture under the skin that will dissolve in about 6 weeks. In 14 days, you can use a pair of clean scissors and cut the suture that is left outside of the skin at the ends of your incision. 1. The small skin tapes can be removed 7 days after surgery if they have not fallen off by that point. 2. You may keep the wound open to air as much as possible to promote healing after post-op day number 5 unless told otherwise by your doctor. 3. If you think the wound looks like it is becoming infected (redness or worsening drainage) and/or you are experiencing fever, chill or worsening back pain and muscle spasms, contact the office so that we may evaluate you as soon as possible. B. Complications are uncommon, but please contact us if you have any signs or symptoms of: 1. wound infection (fever higher than 102.5 degrees F, redness, separation of wound, drainage, or increasing pain from the incision) 2. blood clots in legs (pain, swelling, redness and warmth in legs) 3. urinary tract infection (fever higher than 102.5 degrees F, burning upon urination or increased frequency of urination) 4. nerve problems (inability to walk on your toes or heels, numbness, loss of bowel or bladder control) 5. any other symptoms that concern you C. Please call the office at if you have any concerns or quest ions about your operation or recovery. D. No smoking! Smoking drastically decreases the chance of a solid fusion. E. Do not take any anti-inflammatory medications (Indocin, Advil, Motrin, Aspirin, Naprosyn, etc.) as these may inhibit the chance of a solid fusion. Tylenol is okay to take for pain. MANAGING PAIN AFTER SPINAL SURGERY 1. Narcotic medication is intended for short-term use and will be provided for surgical pain. Surgical pain usually lasts for a period of 4-6 weeks. Narcotic medication includes Percocet, Vicodin, Darvocet, Tylenol #3 or Lortab. 2. Longer-term pain is more appropriately treated with non-narcotic medication such as Tylenol ES. 3. Muscle spasm is not appropriately treated with narcotics. Muscle relaxers such as Soma, Flexeril or Skelaxin can be used along with Tylenol ES. 4. Remember that we all live with some "aches and pains". This is not unusual or uncommon after an injury or as we get older. a. Back pain is expected and may include muscle spasms for 4 to 6 weeks after surgery. The pain should gradually improve. If the pain worsens for no apparent reason, please contact the office. b. Intermittent leg pain may also be experienced and should not be concerned about unless it worsens for no apparent reason. If so, please contact the office. 5. We will provide appropriate medication within the normal guidelines of their prescribed use. We will also be very cautious and aware of potential abuse and extended duration of patients' medication needs. a. Pain medications are for your comfort and to assist with sleep and rest so that the tissue can heal. They are not provided in order to return to normal activity and should not be used through the day. To do so or worsening pain at night can result from ongoing tissue damage and development of tolerance to the prescribed medicine. 6. Please allow 2-3 days to process refills. Prescriptions will not be mailed but must be picked up at the office. FOLLOW UP VISIT: Keep your scheduled follow-up appointment. Any questions, please call the office at . Pending Studies at Discharge: No Stand-Alone Forms: My [facility], Smoking Cessation Medications and DC Order Prescriptions: New tramadol 50 mg tablet 50 mg PO Q6H PRN (Reason: pain, moderate) Qty: 30 0RF oxycodone 5 mg tablet 5 mg PO Q6H PRN (Reason: pain) Qty: 30 0RF Continued metolazone 2.5 mg Tablet 2.5 mg PO 2XWK bumetanide 2 mg Tablet 2 mg PO DAILY PRN (Reason: Edema) trazodone 50 mg Tablet 50 mg PO HS PRN (Reason: Sleep) ropinirole 0.25 mg Tablet 0.25 mg PO HS Rx Instructions: administer 1-3 hours before bedtime pantoprazole 40 mg Tablet,Delayed Release (Dr/Ec) 40 mg PO BID gabapentin 300 mg Capsule 300 mg PO HS PRN (Reason: Pain) ezetimibe 10 mg Tablet 10 mg PO HS rosuvastatin 10 mg Tablet 10 mg PO UD Patient Comments: wednesday and evening Rx Instructions: 2 days per week insulin glargine [Lantus Solostar U-100 Insulin] 100 unit/mL (3 mL) Insulin Pen 58 unit SUBCUT HS Slow-Mag 71.5 mg Tablet,Delayed Release (Dr/Ec) 71.5 mg PO BID potassium chloride 20 mEq Tablet Extended Release 20 meq PO DAILY PRN (Reason: Other) Ozempic 0.25 mg or 0.5 mg(2 mg/1.5 mL) Pen Injector 0.25 mg SUBCUT Q7D metoprolol succinate 25 mg Tablet Extended Release 24 Hr 25 mg PO QAM fluticasone propionate 50 mcg/actuation [place],Suspension 1 spray INTRANASAL HS Rx Instructions: administer into each nostril aspirin 81 mg Capsule 81 mg PO QAM docusate sodium [Colace] 100 mg Capsule 200 mg PO DAILY Held clopidogrel 75 mg tablet 75 mg PO UD Hold Instructions: Resume on 05/29/24. Rx Instructions: wednesday/wednesday/wednesday only Discharge Orders: Discharge Order (Routine); Ordered 05/26/24 Ordered By: Augustine Celaya Admission Data Admit Date/Time: 05/24/24 09:28 Attending Provider: Augustine Celaya Admit Provider: Augustine Celaya Primary Care Provider: Gala Hawkins Other Providers: Froylan Zavala
[2024-05-26 11:22] VITALS: RESP 16
[2024-05-26 13:06] VITALS: BP 122/72
[2024-05-26] MEDS ORDERED: ROSUVASTATIN CALCIUM 10 MG TAB PO SCH (17:00)
== END 2024-05-26 13:37 | disposition home or self-care (01) | DRG 402 ==
LOC: ASU 06:15 → 3E 09:28

== ENCOUNTER 2025-02-01 13:44 | Inpatient (IN) ==
--- NOTE | 2025-02-01 14:05 | Emergency Department Note ---
Impression & Plan Back pain, Anemia, Thrombocytopenia ED Provider Note NAME: LEODAN MONTELONGO AGE: 79 SEX: M : 1945 ARRIVES VIA: Walk-In INFORMANT: Patient ED PROVIDER(S): Mickey Ibrahim DO CHIEF COMPLAINT: Back pain HPI: Patient is a 79-year-old male with a past medical history of CAD, CHF and A-fib as well as diabetes and hypertension who presents ER for back pain. He notes this has been present for the past 3 months. Gradually getting worse. Radiates out to the left hip/left lower back. He admits to numbness of the left anterior thigh. He has been worked up by Dr. Celaya. Had several MRIs last 1 shows several herniated disc and he notes he was referred in for the OR today. ADDITIONAL HISTORY OBTAINED: Per HPI Chronic Medical/Social Conditions Affecting Care: Per HPI PAST MEDICAL HISTORY:See Below PAST SURGICAL HISTORY:See Below FAMILY HISTORY:See Below SOCIAL HISTORY:See Below HOME MEDICATIONS:See Below ALLERGIES:See Below VITALS:See Below PHYSICAL EXAMINATION: GENERAL: Sitting up in bed, alert, well appearing, well nourished, no distress, non-toxic EYE EXAM: normal conjunctiva. NECK: supple, no nuchal rigidity, no adenopathy, non-tender LUNGS: Clear to auscultation. Normal chest wall mechanics HEART: no murmurs, S1 normal and S2 normal ABDOMEN: abdomen soft, non-tender, normo-active bowel sounds, no masses, no rebound or guarding. SKIN: no rashes and no bruising UPPER EXTREMITIES: upper extremities are grossly normal. LOWER EXTREMITIES: Flexion extension hips knees and ankles intact. DPs 2 out of 4. Gross station intact. NEURO EXAM: Normal sensorium, cranial nerves II-XII grossly intact, normal speech, no gross weakness of arms, no gross weakness of legs. MEDICAL DECISION MAKING: Patient is a 79-year-old male who presents ER referred in by spine for back pain. IV was established and blood work was obtained. Labs showed no significant leukocytosis. Mild anemia 12. Mild thrombocytopenia at 120. BMP with LFTs bilirubin was unremarkable. Per her report he was sent in to be admitted to orthospine. Orthopedic spine was made aware and patient will be admitted to their service. Consults/Care Managements Discussions: Per [facility] Triage Nursing notes reviewed. Limited review of prior medical records performed Vital Signs: reviewed and remarkable for tachy Differential diagnosis: Musculoskeletal, disc herniation, fracture, metastatic disease, cord compression, discitis, sciatica, cauda equina, infection, aortic disease, renal colic, gastrointestinal, as well as other pathologies. ER treatment provided: See below Diagnostics interpreted by me include EKG and cardiac monitoring as listed below: -Cardiac Monitoring: An order was placed for continuous cardiac monitoring. The monitor shows a rate of 70 with sinus rhythm. -ECG: none -Laboratory studies:Interpreted by me as stated above in MDM and shown below. Imaging studies: Xrays: As interpreted by me:none CTs show: none Procedures:none Critical Care: None Past Med/Surg History Problem List (Updated 02/01/25 @ 15:45 by Mickey Ibrahim DO) Thrombocytopenia (Acute) Anemia (Acute) Back pain (Acute) B12 deficiency Hypomagnesemia Lumbosacral spondylosis with radiculopathy Hypotension Neurogenic claudication due to lumbar spinal stenosis CAD (coronary artery disease) - S/p CABG (LOPEZ to LAD, SVG to diagonal, SVG to marginal, and SVG to RCA) in 1995 - 2002- "multiple stents placed including LM stenting" (no specific details of procedure per records) - September 2011 cath- patent LOPEZ graft to LAD and SVG to diagonal; vein graft to marginal and RCA were occluded; LM stent patent and supplying blood flow to Cx which collateralized the distant RCA (treated with medical therapy since that time) - October 2021- GERSON to vein graft to diagonal branch (had ostial 90% lesion) Encounter for pre-operative examination Atrial fibrillation Dx over 8 yrs ago > no pacer, on Eliquis CHF (congestive heart failure) Follows with Victoriano Thomas > with [facility] Diabetes mellitus, type 2 Hypertension Medical History (Updated 02/01/25 @ 15:45 by Mickey Ibrahim DO) [place] (hard of hearing) CAD (coronary artery disease) - S/p CABG (LOPEZ to LAD, SVG to diagonal, SVG to marginal, and SVG to RCA) in 1995 - 2002- "multiple stents placed including LM stenting" (no specific details of procedure per records) - September 2011 cath- patent LOPEZ graft to LAD and SVG to diagonal; vein graft to marginal and RCA were occluded; LM stent patent and supplying blood flow to Cx which collateralized the distant RCA (treated with medical therapy since that time) - September 03, 2022- GERSON to vein graft to diagonal branch (had ostial 90% lesion) - On Plavix 3 days week Presence of Watchman left atrial appendage closure device 05/2023, [place]ago History of hypertension Diabetes mellitus, type 2 IDDM CHF (congestive heart failure) Follows with Victoriano De La Cruz > with [facility] EF > 55% on 01/2024 ECHO Atrial fibrillation f/u farrukh mckeon [facility] s/p Watchman device 05/2023 NSTEMI (non-ST elevated myocardial infarction) August 2021 PAD (peripheral artery disease) Low extremities - May 2019- underwent multiple stenting and balloon angioplasty procedures by Dr Sorensen Carotid artery disease S/p stent to right ICA 05/2021 (patent on 10/2021 carotid doppler) Hx of gout occ flares- no recent flares GERD (gastroesophageal reflux disease) well controlled and stable DVT (deep venous thrombosis) 2020 > can't recall which leg > unknown cause Poor historian History of COVID-21 May 2019 > not hospitalized, no residual effects Hyperlipidemia Surgical History Hx of heart surgery 05/2023, placement Watchman device, Mago; f/u farrukh mckeon [facility] History of lumbar surgery 06/18/22, L4-L5 disectomy and fusion History of coronary artery bypass graft 4 vessels in 1995, [facility]; f/u dr. farrukh mckeon [facility] History of repair of rotator cuff left History of tooth extraction all upper teeth History of esophagogastroduodenoscopy (EGD) History of colonoscopy History of appendectomy age 13 H/O carotid angioplasty May 2021 > right side History of cardiac cath - S/p CABG (LOPEZ to LAD, SVG to diagonal, SVG to marginal, and SVG to RCA) in 1995 - 2002- "multiple stents placed including LM stenting" (no specific details of procedure per records) - September 2011 cath- patent LOPEZ graft to LAD and SVG to diagonal; vein graft to marginal and RCA were occluded; LM stent patent and supplying blood flow to Cx which collateralized the distant RCA (treated with medical therapy since that time) - October 2021- GERSON to vein graft to diagonal branch (had ostial 90% lesion) Family History Mother Diabetes Social History Smoking Status: Never smoker Tobacco Type: Cigarettes Second Hand Exposure: No; Do You Dip or Chew Tobacco: No (quit 2021); Hx Alcohol Use: Yes (occasional use) Hx Substance Use: No Preferred Language: Irish Communication Ability: Effective 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 Beliefs That Will Affect Care: None Current Living Situation: Alone Feels Safe at Home: Yes Assistive Devices: None Allergies Allergies Allergy/AdvReac Type Severity Reaction Status Date / Time No Known Allergies Allergy Verified 05/24/24 06:45 Home Meds Home Medications Medication Instructions Recorded Confirmed metolazone 2.5 mg tablet 2.5 mg PO 2XWK 06/15/22 02/01/25 trazodone 50 mg tablet 50 mg PO HS PRN Sleep 06/15/22 02/01/25 aspirin 81 mg capsule 81 mg PO QAM 04/18/24 02/01/25 docusate sodium 100 mg capsule 200 mg PO DAILY 05/24/24 02/01/25 (Colace) allopurinol 300 mg tablet 300 mg PO DAILY 02/01/25 02/01/25 amoxicillin 500 mg capsule 2,000 mg PO ONCE 02/01/25 02/01/25 bumetanide 2 mg tablet 3 mg PO DAILY 02/01/25 02/01/25 clopidogrel 75 mg tablet 75 mg PO 3XWK 02/01/25 02/01/25 colchicine 0.6 mg tablet 0.6 mg PO UD PRN FLARE 02/01/25 02/01/25 cyclobenzaprine 10 mg tablet 10 mg PO HS 02/01/25 02/01/25 diclofenac sodium 1 % topical gel 2 g topical BID PRN RIGHT KNEE PAIN 02/01/25 02/01/25 ezetimibe 10 mg tablet 10 mg PO DAILY 02/01/25 02/01/25 fluticasone fur. 100 mcg-umeclid 1 ea inhalation DAILY 02/01/25 02/01/25 62.5 mcg-vilant 25 mcg inhalat.powder (Trelegy Ellipta) fluticasone propionate 50 2 spray intranasal HS 02/01/25 02/01/25 mcg/actuation nasal spray,suspension gabapentin 300 mg capsule 900 mg PO HS 02/01/25 02/01/25 insulin glargine 100 unit/mL (3 58 unit subcut HS 02/01/25 02/01/25 mL) subcutaneous pen (Basaglar KwikPen U-100 Insulin) isosorbide mononitrate 60 mg 60 mg PO DAILY 02/01/25 02/01/25 tablet,extended release 24 hr metoprolol succinate 25 mg 25 mg PO QAM 02/01/25 02/01/25 tablet,extended release 24 hr nitroglycerin 0.4 mg sublingual 0.4 mg sublingual .EVERY 3 MINUTES 02/01/25 02/01/25 tablet X3 PRN Chest Pain pantoprazole 40 mg tablet,delayed 40 mg PO BID 02/01/25 02/01/25 release potassium chloride 20 mEq 20 meq PO UD 02/01/25 02/01/25 tablet,extended release(part/cryst) pramipexole 0.5 mg tablet 1 mg PO HS 02/01/25 02/01/25 rosuvastatin 10 mg tablet 10 mg PO 2XWK 02/01/25 02/01/25 semaglutide 0.25 mg or 0.5 mg (2 0.5 mg subcut WK 02/01/25 02/01/25 mg/3 mL) subcutaneous pen injector (Ozempic) tamsulosin 0.4 mg capsule 0.4 mg PO QAM 02/01/25 02/01/25 Previous Rx's Medication Instructions Recorded oxycodone 5 mg tablet 5 mg PO Q6H PRN pain #30 tabs 05/24/24 tramadol 50 mg tablet 50 mg PO Q6H PRN pain, moderate 05/24/24 #30 tabs cyanocobalamin (vitamin B-12) 1,000 mcg PO DAILY #30 caps 05/26/24 1,000 mcg capsule Results & Data (ED) Vital Signs Vital Signs - 24 hr 02/01/25 13:47 02/01/25 14:21 02/01/25 15:00 Temperature 36.1 C L Temperature Source Temporal Artery Scan Pulse Rate 104 H 79 64 Respiratory Rate 18 15 Respiratory Effort / Characteristics Non-Labored Spontaneous Respiratory Depth Normal Respiratory Pattern Regular Blood Pressure 121/67 154/86 H Blood Pressure Mean 85 93 Pulse Oximetry 96 96 Oxygen Delivery Method Room Air Sepsis Recent Fever Within 48 Hours No Sepsis New/Unexplained Change in Mental Status No Sepsis Action Taken by Nursing No Action Required Laboratory Data 02/01/25 14:13 02/01/25 14:13 Lab Results 02/01/25 Range/Units 14:13 WBC 5.18 (4.8-10.8) K/ul RBC 4.35 L (4.70-6.10) M/uL Hgb 12.5 L (14.0-18.0) g/dl Hct 40.7 L (42.0-52.0) % MCV 93.6 (80.0-100.0) fL MCH 28.7 (25.0-34.0) pg MCHC 30.7 L (32.0-36.0) g/dL RDW Std Deviation 63.1 H (36.4-46.3) fL RDW Coeff of Evgeny 18.5 H (11.5-14.5) % Plt Count 120 L (130-400) K/uL MPV 10.0 (9.4-12.4) fL Immature Gran % (Auto) 0.4 % Neut % (Auto) 70.4 % Lymph % (Auto) 16.6 % [place] % (Auto) 8.7 % Eos % (Auto) 3.3 % Baso % (Auto) 0.6 % Neut # (Auto) 3.65 (1.40-6.50) K/uL Lymph # (Auto) 0.86 L (1.20-3.40) K/uL [place] # (Auto) 0.45 (0.11-0.59) K/uL Eos # (Auto) 0.17 (0.00-0.50) K/uL Baso # (Auto) 0.03 (0.00-0.20) K/uL Immature Gran # (Auto) 0.02 (0.01-0.20) K/uL Sodium 139 (136-145) mmol/L Potassium 4.2 (3.5-5.1) mmol/L Chloride 104 (98-107) mmol/L Carbon Dioxide 30 (21-32) mmol/L Anion Gap 5 (3-11) BUN 19 (6-23) mg/dl Creatinine 1.25 (0.6-1.4) mg/dl Est Cr Clr Drug Dosing Not Reportable eGFR 58.94 BUN/Creatinine Ratio 15.2 (10-20) Glucose 166 H (70-99(Fasting)) mg/dl Calcium 9.5 (8.6-10.3) mg/dl Total Bilirubin 0.7 (0.2-1.0) mg/dl AST 20 (13-39) U/L ALT 10 (7-52) U/L Alkaline Phosphatase 145 H (34-104) U/L Total Protein 6.5 (6.0-8.3) gm/dl Albumin 3.3 L (3.4-5.0) gm/dl Globulin 3.2 (2.5-4.0) gm/dl Albumin/Globulin Ratio 1.0 (0.9-2) Administered Medications Discontinued Medications Morphine Sulfate (Morphine Sulfate 2 Mg/Ml Carp) 2 mg IV NOW STA Stop: 02/01/25 14:03 Last Admin: 02/01/25 14:16 Dose: 2 mg Documented By: SYLVIE Ondansetron HCl (Ondansetron Inj 2 Mg/Ml 2 Ml Vial) 4 mg IV NOW STA Stop: 02/01/25 14:03 Last Admin: 02/01/25 14:16 Dose: 4 mg Documented By: SYLVIE Discharge Plan Visit Data Chief Complaint: Referred by Doctor Stated Complaint: REF BY DOC, BACK SURGERY ED Provider: Mickey Ibrahim Discharge Problem: Back pain, Anemia, Thrombocytopenia Condition: Fair Forms Stand Alone Forms: My [facility] Prescriptions Prescriptions: No Action metolazone 2.5 mg Tablet 2.5 mg PO 2XWK trazodone 50 mg Tablet 50 mg PO HS PRN (Reason: Sleep) aspirin 81 mg Capsule 81 mg PO QAM docusate sodium [Colace] 100 mg Capsule 200 mg PO DAILY tramadol 50 mg tablet 50 mg PO Q6H PRN (Reason: pain, moderate) Qty: 30 0RF oxycodone 5 mg tablet 5 mg PO Q6H PRN (Reason: pain) Qty: 30 0RF cyanocobalamin (vitamin B-12) 1,000 mcg capsule 1,000 mcg PO DAILY Qty: 30 0RF cyclobenzaprine 10 mg tablet 10 mg PO HS bumetanide 2 mg tablet 3 mg PO DAILY pramipexole 0.5 mg tablet 1 mg PO HS Rx Instructions: 2 TABLET DOSE pantoprazole 40 mg tablet,delayed release (DR/EC) 40 mg PO BID insulin glargine [Basaglar KwikPen U-100 Insulin] 100 unit/mL (3 mL) insulin pen 58 unit SUBCUT HS clopidogrel 75 mg tablet 75 mg PO 3XWK isosorbide mononitrate 60 mg tablet extended release 24 hr 60 mg PO DAILY potassium chloride 20 mEq tablet,ER particles/crystals 20 meq PO UD Rx Instructions: TAKE 1 TABLET EVERY TIME YOU TAKE FUROSEMIDE tamsulosin 0.4 mg capsule 0.4 mg PO QAM gabapentin 300 mg capsule 900 mg PO HS allopurinol 300 mg tablet 300 mg PO DAILY ezetimibe 10 mg tablet 10 mg PO DAILY diclofenac sodium 1 % gel 2 g TOPICAL BID PRN (Reason: RIGHT KNEE PAIN) nitroglycerin 0.4 mg tablet, sublingual 0.4 mg sublingual .EVERY 3 MINUTES X3 PRN (Reason: Chest Pain) metoprolol succinate 25 mg tablet extended release 24 hr 25 mg PO QAM rosuvastatin 10 mg tablet 10 mg PO 2XWK Rx Instructions: TUESDAYS & THURSDAYS Ozempic 0.25 mg or 0.5 mg (2 mg/3 mL) pen injector 0.5 mg SUBCUT WK Rx Instructions: SUNDAYS amoxicillin 500 mg capsule 2,000 mg PO ONCE Rx Instructions: TAKE 4 CAPSULES 1 HOUR BEFORE DENTAL PROCEDURE colchicine 0.6 mg tablet 0.6 mg PO UD PRN (Reason: FLARE) Rx Instructions: TAKE 2 TABLETS AT ONSET OF FLURE UP THEN 1 TAB 1 HOUR LATER fluticasone propionate 50 mcg/actuation spray,suspension 2 spray INTRANASAL HS Trelegy Ellipta 100-62.5-25 mcg blister with device 1 ea INHALATION DAILY Referrals Referrals: Gala Hawkins MD [Primary Care Provider] - Discharge Problem: Back pain Qualifiers: Back pain location: low back pain Chronicity: acute Back pain laterality: u nspecified Sciatica presence: unspecified whether sciatica present Qualified Code(s): M54.50 - Low back pain, unspecified Anemia Qualifiers: Anemia type: unspecified type Qualified Code(s): D64.9 - Anemia, unspecified
[2025-02-01] MEDS: ONDANSETRON INJ 2 MG/ML 2 ML VIAL IV STA (14:16)
[2025-02-01] MEDS: MoRPHine SULFATE 2 MG/ML CARP IV STA (14:16)
[2025-02-01 14:31] LABS: Hematocrit (blood only) 40.7 % (42.0-52.0); Hemoglobin 12.5 g/dl (14.0-18.0); Immature Granulocytes # (auto) 0.02 K/uL (0.01-0.20); Immature Granulocytes % (auto) 0.4 %; Mean Corpuscular Hemoglobin 28.7 pg (25.0-34.0); Mean Corpuscular Volume 93.6 fL (80.0-100.0); Platelet Count 120 K/uL (130-400); RDW Standard Deviation 63.1 fL (36.4-46.3); Red Blood Count 4.35 M/uL (4.70-6.10); White Blood Count 5.18 K/ul (4.8-10.8)
[2025-02-01 14:46] LABS: Alanine Aminotransferase 10 U/L (7-52); Albumin Globulin Ratio 1.0 (0.9-2); Albumin Level 3.3 gm/dl (3.4-5.0); Alkaline Phosphatase 145 U/L (34-104); Anion Gap 5 (3-11); Bilirubin,Total 0.7 mg/dl (0.2-1.0); Blood Urea Nitrogen 19 mg/dl (6-23); Calcium 9.5 mg/dl (8.6-10.3); Carbon Dioxide 30 mmol/L (21-32); Chloride 104 mmol/L (98-107); Globulin 3.2 gm/dl (2.5-4.0); Glucose 166 mg/dl (70-99(Fasting)); Potassium 4.2 mmol/L (3.5-5.1); Sodium 139 mmol/L (136-145); Total Protein 6.5 gm/dl (6.0-8.3)
[2025-02-01] MEDS ORDERED: ACETAMINOPHEN 500 MG TAB PO PRN (17:41)
[2025-02-01] MEDS ORDERED: HYDROmorphone INJ 1 MG/ML SYRINGE IV PRN (17:41)
[2025-02-01] MEDS ORDERED: NALOXONE HCL 0.4 MG/1 ML VIAL/CARP IV PRN (17:41)
[2025-02-01] MEDS ORDERED: PHARMACY GLYCEMIC MGMT CONSULT PRN (17:41)
[2025-02-01] MEDS ORDERED: ONDANSETRON INJ 2 MG/ML 2 ML VIAL IV PRN (17:41)
[2025-02-01] MEDS ORDERED: ONDANSETRON 4 MG OD TAB PO PRN (17:41)
[2025-02-01] MEDS ORDERED: ACETAMINOPHEN 1,000 MG/100 ML VIAL IV PRN (17:41)
[2025-02-01] MEDS ORDERED: METOCLOPRAMIDE HCL INJ 5 MG/ML 2 ML VIAL IV PRN (17:41)
[2025-02-01] MEDS ORDERED: PROMETHAZINE 12.5 MG/50.5 ML BAG IV PRN (17:41)
[2025-02-01 18:36] LABS: Hematocrit (blood only) 40.8 % (42.0-52.0); Hemoglobin 12.4 g/dl (14.0-18.0); Immature Granulocytes # (auto) 0.01 K/uL (0.01-0.20); Immature Granulocytes % (auto) 0.2 %; Mean Corpuscular Hemoglobin 28.3 pg (25.0-34.0); Mean Corpuscular Volume 93.2 fL (80.0-100.0); Platelet Count 119 K/uL (130-400); RDW Standard Deviation 62.3 fL (36.4-46.3); Red Blood Count 4.38 M/uL (4.70-6.10); White Blood Count 4.09 K/ul (4.8-10.8)
--- NOTE | 2025-02-01 18:49 | XRay Report ---
EXAM: X-ray chest one-view portable CLINICAL HISTORY: Pre-op PRIORS: None TECHNIQUE: AP portable semierect FINDINGS: The chest is well-expanded. Median sternotomy wires noted with moderate enlargement of the heart. No airspace consolidation, effusion or congestive changes. Trachea is patent and midline. Osseous structures demonstrate no acute abnormality. No radiopaque foreign body. IMPRESSION: Moderate enlargement of the heart, correlate clinically. Electronically signed by Aliya Rivas 02-01-2025 6:49 PM
[2025-02-01 18:54] LABS: Alanine Aminotransferase 11.0 U/L (7-52); Albumin Globulin Ratio 1.1 (0.9-2); Albumin Level 3.3 gm/dl (3.4-5.0); Alkaline Phosphatase 139.0 U/L (34-104); Anion Gap 5.0 (3-11); Bilirubin,Total 0.6 mg/dl (0.2-1.0); Blood Urea Nitrogen 19.0 mg/dl (6-23); Calcium 9.5 mg/dl (8.6-10.3); Carbon Dioxide 31.0 mmol/L (21-32); Chloride 105.0 mmol/L (98-107); Creatinine Clr Calc Pharmacy 60.4 ml/min; Globulin 3.0 gm/dl (2.5-4.0); Glucose 110.0 mg/dl (70-99(Fasting)); Potassium 4.0 mmol/L (3.5-5.1); Sodium 141.0 mmol/L (136-145); Total Protein 6.3 gm/dl (6.0-8.3)
[2025-02-01] MEDS: SODIUM CHLORIDE 0.9% 1,000 ML IV SCH (19:36)
--- NOTE | 2025-02-01 19:54 | Pharmacy Report ---
Pharmacy Glycemic Short Note 2 - Date of Service February 01, 2025 - Glycemic Short BSG Results (Last 24 hours): 02/01/25 02/01/25 14:13 18:14 Glucose 166 H 110 H OUTPATIENT ANTIDIABETIC REGIMEN: * Insulin glargine 58 units QHS * Semaglutide 0.5 mg SQ weekly * HbA1c pending with 10/3 AM labs ASSESSMENT: * 79 year old male with T2DM presents for referral for OR with Dr. Celaya. * Regular diet for now - NPO 02/02 at midnight. * Unable to confirm when patient got their last dose of Lantus before admission. * Glucose 166 then 110. Given glucose controlled this evening and patient will be NPO shortly for OR, will give scale of insulin glargine starting 10/3 AM. * Initiate Novolog regimen - combination of weight-based stress of 2 and estimated total daily insulin from home regimen. * Stressors: spinal surgery 02/02 PLAN FOR INPATIENT GLYCEMIC CONTROL: * Basal insulin * Lantus scale 5/10/15 units SQ BID * Bolus insulin * NovoLog per scale ACHS or Q6hrs while NPO * Goal Range: Low 110 mg/dL - High 140 mg/dL * Correction Factor: 30 mg/dL/unit * Nutritional / Prandial insulin per carb ratio of 1 unit per 10 grams CHO consumed
[2025-02-01] MEDS: INSULIN ASPART PER UNIT CHARGE SC SCH ×2 (20:32→23:49)
[2025-02-01] MEDS: FLUTICASONE PROPIONATE NA SPR 16 GM BTL SCH (21:39)
[2025-02-02] MEDS: HYDROmorphone INJ 0.5 MG/0.5 ML SYR IV PRN (00:19)
[2025-02-02] MEDS: ASPIRIN 81 MG ECTAB PO SCH (07:46)
[2025-02-02] MEDS: MAGNESIUM OXIDE 400 MG TAB PO SCH (07:46)
[2025-02-02] MEDS: METOPROLOL SUCC 25MG EXT REL TAB PO SCH (07:46)
--- NOTE | 2025-02-02 07:53 | History & Physical Report ---
Date of Service February 02, 2025 Assessment & Plan (1) Lumbar disc herniation with radiculopathy: Plan: Assessment L2-L3 disc herniation with radiculopathy. #2 lumbar spondylosis neuroforaminal stenosis with radiculopathy. Plan at this time patient had a marked decline in status as that risk for continued permanent functional deficits and subsequently I am recommending urgent decompression fusion L2-L3 to address the disc herniation and neuroforaminal stenosis. This would require removal of instrumentation L3-L5. Risk benefits pros cons and alternatives of been outlined in detail. Will plan for surgery as soon as possible. Admission and Anticipated Discharge Date Admission Date: February 01, 2025 History of Present Illness Chief Complaint: Back and left leg pain with inability to ambulate Primary Care Provider: Gala Hawkins MD This is a 79-year-old male well-known to mostly presents to my office yesterday with his daughter. He has had a marked decline in status over the past several weeks with severe left buttock and left anterior thigh pain. He presents in a wheelchair as he is unable to ambulate secondary to the severe pain. He denies any right lower extremity discomfort. Denies any specific trauma fall or event that precipitated his presentation. Allergies Allergy/AdvReac Type Severity Reaction Status Date / Time No Known Allergies Allergy Verified 05/24/24 06:45 Home Medications Medication Instructions Recorded Confirmed Type metolazone 2.5 mg tablet 2.5 mg PO 2XWK 06/15/22 02/01/25 History trazodone 50 mg tablet 50 mg PO HS PRN Sleep 06/15/22 02/01/25 History aspirin 81 mg capsule 81 mg PO QAM 04/18/24 02/01/25 History docusate sodium 100 mg capsule 200 mg PO DAILY 05/24/24 02/01/25 History (Colace) oxycodone 5 mg tablet 5 mg PO Q6H PRN pain #30 tabs 05/24/24 02/01/25 Rx tramadol 50 mg tablet 50 mg PO Q6H PRN pain, moderate 05/24/24 02/01/25 Rx #30 tabs cyanocobalamin (vitamin B-12) 1,000 mcg PO DAILY #30 caps 05/26/24 02/01/25 Rx 1,000 mcg capsule allopurinol 300 mg tablet 300 mg PO DAILY 02/01/25 02/01/25 History amoxicillin 500 mg capsule 2,000 mg PO ONCE 02/01/25 02/01/25 History bumetanide 2 mg tablet 3 mg PO DAILY 02/01/25 02/01/25 History clopidogrel 75 mg tablet 75 mg PO 3XWK 02/01/25 02/01/25 History colchicine 0.6 mg tablet 0.6 mg PO UD PRN FLARE 02/01/25 02/01/25 History cyclobenzaprine 10 mg tablet 10 mg PO HS 02/01/25 02/01/25 History diclofenac sodium 1 % topical gel 2 g topical BID PRN RIGHT KNEE PAIN 02/01/25 02/01/25 History ezetimibe 10 mg tablet 10 mg PO DAILY 02/01/25 02/01/25 History fluticasone fur. 100 mcg-umeclid 1 ea inhalation DAILY 02/01/25 02/01/25 History 62.5 mcg-vilant 25 mcg inhalat.powder (Trelegy Ellipta) fluticasone propionate 50 2 spray intranasal HS 02/01/25 02/01/25 History mcg/actuation nasal spray,suspension gabapentin 300 mg capsule 900 mg PO HS 02/01/25 02/01/25 History insulin glargine 100 unit/mL (3 58 unit subcut HS 02/01/25 02/01/25 History mL) subcutaneous pen (Basaglar KwchrisPen U-100 Insulin) isosorbide mononitrate 60 mg 60 mg PO DAILY 02/01/25 02/01/25 History tablet,extended release 24 hr metoprolol succinate 25 mg 25 mg PO QAM 02/01/25 02/01/25 History tablet,extended release 24 hr nitroglycerin 0.4 mg sublingual 0.4 mg sublingual .EVERY 3 MINUTES 02/01/25 02/01/25 History tablet X3 PRN Chest Pain pantoprazole 40 mg tablet,delayed 40 mg PO BID 02/01/25 02/01/25 History release potassium chloride 20 mEq 20 meq PO UD 02/01/25 02/01/25 History tablet,extended release(part/cryst) pramipexole 0.5 mg tablet 1 mg PO HS 02/01/25 02/01/25 History rosuvastatin 10 mg tablet 10 mg PO 2XWK 02/01/25 02/01/25 History semaglutide 0.25 mg or 0.5 mg (2 0.5 mg subcut WK 02/01/25 02/01/25 History mg/3 mL) subcutaneous pen injector (Ozempic) tamsulosin 0.4 mg capsule 0.4 mg PO QAM 02/01/25 02/01/25 History Past Med/Surg History Problem List (Updated 02/02/25 @ 07:51 by Augustine Celaya DO) Lumbar disc herniation with radiculopathy Thrombocytopenia (Acute) Anemia (Acute) Back pain (Acute) B12 deficiency Hypomagnesemia Lumbosacral spondylosis with radiculopathy Hypotension Neurogenic claudication due to lumbar spinal stenosis CAD (coronary artery disease) - S/p CABG (LOPEZ to LAD, SVG to diagonal, SVG to marginal, and SVG to RCA) in 1995 - 2002- "multiple stents placed including LM stenting" (no specific details of procedure per records) - September 2011 cath- patent LOPEZ graft to LAD and SVG to diagonal; vein graft to marginal and RCA were occluded; LM stent patent and supplying blood flow to Cx which collateralized the distant RCA (treated with medical therapy since that time) - October 2021- GERSON to vein graft to diagonal branch (had ostial 90% lesion) Encounter for pre-operative examination Atrial fibrillation Dx over 8 yrs ago > no pacer, on Eliquis CHF (congestive heart failure) Follows with Victoriano Thomas > with [facility] Diabetes mellitus, type 2 Hypertension Medical History (Updated 02/02/25 @ 07:51 by Augustine Celaya DO) [place] (hard of hearing) CAD (coronary artery disease) - S/p CABG (LOPEZ to LAD, SVG to diagonal, SVG to marginal, and SVG to RCA) in 1995 - 2002- "multiple stents placed including LM stenting" (no specific details of procedure per records) - September 2011 cath- patent LOPEZ graft to LAD and SVG to diagonal; vein graft to marginal and RCA were occluded; LM stent patent and supplying blood flow to Cx which collateralized the distant RCA (treated with medical therapy since that time) - September 03, 2022- GERSON to vein graft to diagonal branch (had ostial 90% lesion) - On Plavix 3 days week Presence of Watchman left atrial appendage closure device 05/2023, Mago History of hypertension Diabetes mellitus, type 2 IDDM CHF (congestive heart failure) Follows with Victoriano De La Cruz > with [facility] EF > 55% on 01/2024 ECHO Atrial fibrillation f/u farrukh mckeon [facility] s/p Watchman device 05/2023 NSTEMI (non-ST elevated myocardial infarction) August 2021 PAD (peripheral artery disease) Low extremities - May 2019- underwent multiple stenting and balloon angioplasty procedures by Dr Sorensen Carotid artery disease S/p stent to right ICA 05/2021 (patent on 10/2021 carotid doppler) Hx of gout occ flares- no recent flares GERD (gastroesophageal reflux disease) well controlled and stable DVT (deep venous thrombosis) 2020 > can't recall which leg > unknown cause Poor historian History of COVID-21 May 2019 > not hospitalized, no residual effects Hyperlipidemia Surgical History Hx of heart surgery 05/2023, placement Watchman device, [place]; f/u farrukh mckeon [facility] History of lumbar surgery 06/18/22, L4-L5 disectomy and fusion History of coronary artery bypass graft 4 vessels in 1995, [facility]; f/u dr. farrukh mckeon [facility] History of repair of rotator cuff left History of tooth extraction all upper teeth History of esophagogastroduodenoscopy (EGD) History of colonoscopy History of appendectomy age 13 H/O carotid angioplasty May 2021 > right side History of cardiac cath - S/p CABG (LOPEZ to LAD, SVG to diagonal, SVG to marginal, and SVG to RCA) in 1995 - 2002- "multiple stents placed including LM stenting" (no specific details of procedure per records) - September 2011 cath- patent LOPEZ graft to LAD and SVG to diagonal; vein graft to marginal and RCA were occluded; LM stent patent and supplying blood flow to Cx which collateralized the distant RCA (treated with medical therapy since that time) - October 2021- GERSON to vein graft to diagonal branch (had ostial 90% lesion) Family History Mother Diabetes Social History Smoking Status: Never smoker Tobacco Type: Cigarettes Smoking End Date: 1995; Second Hand Exposure: No; Do You Dip or Chew Tobacco: Yes; Tobacco Cessation Education Requested by Patient: No Hx Alcohol Use: Yes Alcohol type: beer Hx Substance Use: No Preferred Language: Yakut Communication Ability: Effective Lettuce Cutter Required: No Beliefs That Will Affect Care: None Current Living Situation: Other Current Living Situation Comment: Girlfriend (Jacki Slaughter) Other Information That Helps Us Care for You: No Feels Safe at Home: Yes Safety Concerns: Feels Safe At This Time Assistive Devices: Cane, Glasses and Walker Physical Exam Physical Exam: On exam unable to assist him in standing out of his wheelchair. Incisions well- healed. Nontender to palpation lumbar musculature. Bench exam reveals marked deficits with left hip flexion and quadriceps compared to 5/5 on the right. He has 4+/5 bilateral plantarflexion dorsiflexion. There is sensory deficits to the left anterior thigh compared to the right. Results & Data Results & Data Vital Signs (Past 12 Hours) Vital Signs Temp Pulse Resp BP Pulse Ox O2 Del Method 02/02/25 00:32 36.3 C L 52 L 18 140/87 96 Room Air Code Status & VTE Plan VTE Prophylaxis Plan VTE Prophylaxis will be ordered: Yes
[2025-02-02 08:10] LABS: Hemoglobin A1C 7.6 % (4.5-5.6)
[2025-02-02] MEDS ORDERED: LANTUS PER UNIT CHARGE SC SCH (09:00)
--- NOTE | 2025-02-02 09:25 | Pharmacy Report ---
Pharmacy Glycemic Short Note 2 - Date of Service February 02, 2025 - Glycemic Short BSG Results (Last 24 hours): 02/01/25 02/01/25 02/01/25 14:13 18:14 20:11 Glucose 166 H 110 H POC Glucose 124 H 02/01/25 02/02/25 23:46 05:45 Glucose POC Glucose 97 84 OUTPATIENT ANTIDIABETIC REGIMEN: * Insulin glargine 58 units QHS * Semaglutide 0.5 mg SQ weekly * HbA1c pending with 10 AM labs ASSESSMENT: 02/02: * Raul did not require any insulin this admission thus far as his blood glucose has been in or below goal range. * Fasting BSG was 84mg/dL this morning. AM Lantus scale placed on hold as his BSG is below goal and he is scheduled to go to the OR this morning. Will add a Lantus scale (0, 10, or 15 units depending on BSG) at HS incase his BSG would rise from the stress of surgery. * Will continue bolus insulin regimen as previously ordered. 02/01: * 79 year old male with T2DM presents for referral for OR with Dr. Celaya. * Regular diet for now - NPO 02/02 at midnight. * Unable to confirm when patient got their last dose of Lantus before admission. * Glucose 166 then 110. Given glucose controlled this evening and patient will be NPO shortly for OR, will give scale of insulin glargine starting 103 AM. * Initiate Novolog regimen - combination of weight-based stress of 2 and estimated total daily insulin from home regimen. * Stressors: spinal surgery 02/02 PLAN FOR INPATIENT GLYCEMIC CONTROL: * Basal insulin * Lantus scale (0,10, or 15 units depending on BSG) SQ at HS * Bolus insulin * NovoLog per scale ACHS or Q6hrs while NPO * Goal Range: Low 110 mg/dL - High 140 mg/dL * Correction Factor: 30 mg/dL/unit * Nutritional / Prandial insulin per carb ratio of 1 unit per 10 grams CHO consumed
--- NOTE | 2025-02-02 10:44 | Electrocardiogram Report ---
Test Reason : Blood Pressure : */* mmHG Vent. Rate : 69 BPM Atrial Rate : * BPM P-R Int : * ms QRS Dur : 98 ms QT Int : 414 ms P-R-T Axes : * 103 -59 degrees QTcB Int : 443 ms Atrial fibrillation Rightward axis Nonspecific ST abnormality Abnormal ECG When compared with ECG of 20-Jun-2022 09:19, ST now depressed in Inferior leads Inverted T waves have replaced nonspecific T wave abnormality in Inferior leads Confirmed by Eagle Garcia ([id number]) on 02/02/2025 10:44:27 AM Referred By: REFERRED SELF Confirmed By: Eagle Garcia
[2025-02-02] MEDS ORDERED: ONDANSETRON INJ 2 MG/ML 2 ML VIAL ONE (12:02)
[2025-02-02] MEDS ORDERED: PROPOFOL IV EMULSION 10 MG/ML 20 ML VIAL IV ONE (12:02)
[2025-02-02] MEDS ORDERED: NEOSTIGMINE METHYLSULFATE 1 MG/ML 10ML VIAL ONE (12:02)
[2025-02-02] MEDS ORDERED: DEXAMETHASONE SOD INJ 4 MG/ML VIAL ONE (12:02)
[2025-02-02] MEDS ORDERED: LIDOCAINE 2% 2 ML VIAL/AMP(20MG/ML) INFIL ONE (12:02)
[2025-02-02] MEDS ORDERED: GLYCOPYRROLATE 0.2 MG/ML VIAL ONE (12:02)
[2025-02-02] MEDS ORDERED: MIDAZOLAM HCL 1 MG/ML 2ML VIAL ONE (12:02)
[2025-02-02] MEDS ORDERED: ROCURONIUM BROMIDE 10 MG/ML 5 ML VIAL IV ONE ×2 (12:02→12:03)
--- NOTE | 2025-02-02 12:22 | History & Physical Bridge Note ---
Date of Service February 02, 2025 History & Physical Bridge Note I have examined the patient, reviewed the History & Physical and in the interval since the performance of the History & Physical I have noted the following changes of clinical significance: no changes noted L2-L3 decompression fusion hardware removal L3-L5
[2025-02-02] MEDS: D5W AND NSS 1,000 ML IV SCH (13:00)
--- NOTE | 2025-02-02 13:49 | Anesthesiology Consultation ---
Date of Service February 02, 2025 Assessment & Plan Chart Review Chart Review: Acceptable Risk for Surgery and Patient NOT seen in Pre Admission Testing Consults Requested none History Surgery Operation Date: 02/02/25 11:05 Proposed Procedures p L2-L3 Decompresion and Fusion, L3-L5 Hardware Removal - Augustine Celaya DO Height/Weight Height: 5 ft 6 in Weight: 100.698 kg Allergies Allergy/AdvReac Type Severity Reaction Status Date / Time No Known Allergies Allergy Verified 05/24/24 06:45 Medications Home Medications Medication Instructions Recorded Confirmed Last Taken metolazone 2.5 mg tablet 2.5 mg PO 2XWK 06/15/22 02/01/25 05/18/24 trazodone 50 mg tablet 50 mg PO HS PRN Sleep 06/15/22 02/01/25 06/16/22 20:00 aspirin 81 mg capsule 81 mg PO QAM 04/18/24 02/01/25 05/23/24 07:00 docusate sodium 100 mg capsule 200 mg PO DAILY 05/24/24 02/01/25 05/23/24 19:00 (Colace) oxycodone 5 mg tablet 5 mg PO Q6H PRN pain #30 tabs 05/24/24 02/01/25 Unknown tramadol 50 mg tablet 50 mg PO Q6H PRN pain, moderate 05/24/24 02/01/25 Unknown #30 tabs cyanocobalamin (vitamin B-12) 1,000 mcg PO DAILY #30 caps 05/26/24 02/01/25 Unknown 1,000 mcg capsule allopurinol 300 mg tablet 300 mg PO DAILY 02/01/25 02/01/25 Unknown amoxicillin 500 mg capsule 2,000 mg PO ONCE 02/01/25 02/01/25 Unknown bumetanide 2 mg tablet 3 mg PO DAILY 02/01/25 02/01/25 Unknown clopidogrel 75 mg tablet 75 mg PO 3XWK 02/01/25 02/01/25 Unknown colchicine 0.6 mg tablet 0.6 mg PO UD PRN FLARE 02/01/25 02/01/25 Unknown cyclobenzaprine 10 mg tablet 10 mg PO HS 02/01/25 02/01/25 Unknown diclofenac sodium 1 % topical gel 2 g topical BID PRN RIGHT KNEE PAIN 02/01/25 02/01/25 Unknown ezetimibe 10 mg tablet 10 mg PO DAILY 02/01/25 02/01/25 Unknown fluticasone fur. 100 mcg-umeclid 1 ea inhalation DAILY 02/01/25 02/01/25 Unknown 62.5 mcg-vilant 25 mcg inhalat.powder (Trelegy Ellipta) fluticasone propionate 50 2 spray intranasal HS 02/01/25 02/01/25 Unknown mcg/actuation nasal spray,suspension gabapentin 300 mg capsule 900 mg PO HS 02/01/25 02/01/25 Unknown insulin glargine 100 unit/mL (3 58 unit subcut HS 02/01/25 02/01/25 Unknown mL) subcutaneous pen (Basaglar KwikPen U-100 Insulin) isosorbide mononitrate 60 mg 60 mg PO DAILY 02/01/25 02/01/25 Unknown tablet,extended release 24 hr metoprolol succinate 25 mg 25 mg PO QAM 02/01/25 02/01/25 Unknown tablet,extended release 24 hr nitroglycerin 0.4 mg sublingual 0.4 mg sublingual .EVERY 3 MINUTES 02/01/25 02/01/25 Unknown tablet X3 PRN Chest Pain pantoprazole 40 mg tablet,delayed 40 mg PO BID 02/01/25 02/01/25 Unknown release potassium chloride 20 mEq 20 meq PO UD 02/01/25 02/01/25 Unknown tablet,extended release(part/cryst) pramipexole 0.5 mg tablet 1 mg PO HS 02/01/25 02/01/25 Unknown rosuvastatin 10 mg tablet 10 mg PO 2XWK 02/01/25 02/01/25 Unknown semaglutide 0.25 mg or 0.5 mg (2 0.5 mg subcut WK 02/01/25 02/01/25 Unknown mg/3 mL) subcutaneous pen injector (Ozempic) tamsulosin 0.4 mg capsule 0.4 mg PO QAM 02/01/25 02/01/25 Unknown Active Medications Generic Name Dose Route Start Last Admin Trade Name Freq PRN Reason Stop Dose Admin Aspirin 81 mg 02/02/25 09:00 02/02/25 07:46 Aspirin 81 Mg Ectab PO 03/04/25 08:59 [facility] [place] Fluticasone Propionate 1 sprays 02/01/25 21:00 02/01/25 21:39 Fluticasone Propionate Na Spr 16 Gm Btl NA 03/03/25 20:59 Not Given HS VALORIE Hydromorphone HCl 0.5 mg 02/01/25 17:41 02/02/25 00:19 Hydromorphone Inj 0.5 Mg/0.5 Ml Syr IV 02/15/25 17:40 0.5 mg Q3H PRN Administration MOD pain (scale 4-6) & Pre PT Sodium Chloride 1,000 mls @ 75 mls/hr 02/01/25 17:41 02/02/25 09:57 Nss IV 02/04/25 17:40 75 mls/hr .[id number] VAOLRIE Administration Dextrose/Sodium Chloride 1,000 mls @ 125 mls/hr 02/02/25 13:00 02/02/25 13:11 D5w And Nss IV 02/05/25 12:59 Infused .Q8H VALORIE Infusion Insulin Aspart 0 units 02/02/25 00:00 02/02/25 12:45 Insulin Aspart Per Unit Charge SC 03/04/25 00:00 Not Given Q6 VALORIE Magnesium Oxide 200 mg 02/02/25 09:00 02/02/25 07:46 Magnesium Oxide 400 Mg Tab PO 03/04/25 08:59 Not Given DAILY VALORIE Metoprolol Succinate 25 mg 02/02/25 09:00 02/02/25 07:46 Metoprolol Succ 25mg Ext Rel Tab PO 03/04/25 08:59 Not Given QAM VALORIE Oxycodone HCl 5 - 10 mg 02/01/25 17:41 02/01/25 21:50 Oxycodone Hcl Ir 5 Mg Tab (Immediate Release) PO 02/15/25 17:40 10 mg Q4H PRN Administration mod to severe pain Pantoprazole Sodium 40 mg 02/01/25 21:00 02/02/25 07:46 Pantoprazole 40 Mg Tab PO 03/03/25 20:59 Not Given BID VALORIE Ropinirole HCl 0.25 mg 02/01/25 21:00 02/01/25 21:39 Ropinirole Hcl 0.25 Mg Tablet PO 03/03/25 20:59 0.25 mg HS VALORIE Administration NPO Date Last Intake of Fluids: 02/01/25 Time Last Intake of Fluids: 19:00 Date Last Intake of Solids: 02/01/25 Time Last Intake of Solids: 19:00 Past Medical History Medical History (Updated 02/02/25 @ 07:51 by Augustine Celaya DO) [place] (hard of hearing) CAD (coronary artery disease) - S/p CABG (LOPEZ to LAD, SVG to diagonal, SVG to marginal, and SVG to RCA) in 1995 - 2002- "multiple stents placed including LM stenting" (no specific details of procedure per records) - September 2011 cath- patent LOPEZ graft to LAD and SVG to diagonal; vein graft to marginal and RCA were occluded; LM stent patent and supplying blood flow to Cx which collateralized the distant RCA (treated with medical therapy since that time) - September 03, 2022- GERSON to vein graft to diagonal branch (had ostial 90% lesion) - On Plavix 3 days week Presence of Watchman left atrial appendage closure device 05/2023, Mago History of hypertension Diabetes mellitus, type 2 IDDM CHF (congestive heart failure) Follows with Victoriano De La Cruz > with [facility] EF > 55% on 01/2024 ECHO Atrial fibrillation f/u farrukh mckeon [facility] s/p Watchman device 05/2023 NSTEMI (non-ST elevated myocardial infarction) August 2021 PAD (peripheral artery disease) Low extremities - May 2019- underwent multiple stenting and balloon angioplasty procedures by Dr Sorensen Carotid artery disease S/p stent to right ICA 05/2021 (patent on 10/2021 carotid doppler) Hx of gout occ flares- no recent flares GERD (gastroesophageal reflux disease) well controlled and stable DVT (deep venous thrombosis) 2020 > can't recall which leg > unknown cause Poor historian History of COVID-21 May 2019 > not hospitalized, no residual effects Hyperlipidemia Past Family History Family History Mother Diabetes Past Surgical History Surgical History Hx of heart surgery 05/2023, placement Watchman device, [place]; f/u farrukh mckeon [facility] History of lumbar surgery 06/18/22, L4-L5 disectomy and fusion History of coronary artery bypass graft 4 vessels in 1995, [facility]; f/u dr. farrukh mckeon, [facility] History of repair of rotator cuff left History of tooth extraction all upper teeth History of esophagogastroduodenoscopy (EGD) History of colonoscopy History of appendectomy age 13 H/O carotid angioplasty May 2021 > right side History of cardiac cath - S/p CABG (LOPEZ to LAD, SVG to diagonal, SVG to marginal, and SVG to RCA) in 1995 - 2002- "multiple stents placed including LM stenting" (no specific details of procedure per records) - September 2011 cath- patent LOPEZ graft to LAD and SVG to diagonal; vein graft to marginal and RCA were occluded; LM stent patent and supplying blood flow to Cx which collateralized the distant RCA (treated with medical therapy since that time) - October 2021- GERSON to vein graft to diagonal branch (had ostial 90% lesion) Social History Smoking Status: Never smoker Do You Dip or Chew Tobacco: Yes Smoking End Date: 1995 Hx Alcohol Use: Yes Alcohol type: beer alcohol intake frequency: a few times a month Hx Substance Use: No substance use type: does not use Physical Exam Vital Signs Last Vital Signs Temp 36.7 C 02/02/25 12:33 Pulse 78 02/02/25 12:33 Resp 18 02/02/25 12:33 BP 150/95 H 02/02/25 12:33 Pulse Ox 93 02/02/25 12:33 O2 Del Method Room Air 02/02/25 12:33 Testing Laboratory Results 02/01/25 18:14 02/01/25 18:14 Hemoglobin A1c 7.6 % (4.5-5.6) H 02/01/25 18:14 Blood Type O Negative 02/02/25 08:43 Antibody Screen NEGATIVE 02/02/25 08:43 02/02/25 02/02/25 02/02/25 13:03 12:39 12:37 POC Glucose 85 68 L* 64 L* 02/02/25 05:45 POC Glucose 84
[2025-02-02] MEDS ORDERED: ONDANSETRON INJ 2 MG/ML 2 ML VIAL IV PRN ×2 (13:50→16:33)
[2025-02-02] MEDS ORDERED: ATROPINE SULFATE 0.1 MG/ML 10ML SYR IV PRN (13:50)
[2025-02-02] MEDS: BUPIVACAINE/EPINEPHRINE 0.25% 1:200,000 30 ML VIAL ONE (14:18)
[2025-02-02] MEDS: ceFAZolin 330 MG/ML 1 GM VIAL ONE (14:19)
[2025-02-02] MEDS: SURGICEL ABSORB HEMOSTAT 2IN X 14IN TOP ONE (14:33)
[2025-02-02] MEDS: FLOSEAL HEMOSTATIC MATRIX 10ML TOP ONE (14:54)
[2025-02-02] MEDS ORDERED: SUGAMMADEX SODIUM 200 MG/2 ML VIAL IV ONE ×2 (15:02→15:20)
--- NOTE | 2025-02-02 15:02 | Operative Report ---
Post Operative Report Pre & Post Diagnosis Operation Date: 02/02/25 11:05 Pre-Op Diagnosis: L2-L3 disc herniation with radiculopathy, lumbar spondylosis neuroforaminal stenosis with radiculopathy Post-Op Diagnosis: L2-L3 disc herniation with radiculopathy, lumbar spondylosis neuroforaminal stenosis with radiculopathy I identified the patient and participated in the time-out.: Yes Procedure Operation Date: 02/02/25 11:05 Actual Procedures #1 removal of instrumentation L3-L5 rods and end caps. #2 decompression bilaterally of facetectomies and foraminotomies L2-L3 with excision of herniated fragments. #3 posterior spinal fusion L2-L3. #4 patient posterior instrumentation L2-L5. #5 interbody fusion L2-L3. #6 placement of 13 x 26 mm Spira cage L to L3. #7 placement of Proteus combined with Koros bone graft in the posterior gutters and os design and interbody space. #8 application of versa wrap over the exposed dura. Surgeon Augustine Celaya, DO Central Processing Technician Blake Edwards Estimated Blood Loss 350 Findings See Below The patient is 5 foot 6 weighing over 100 kg with a BMI in excess of 35. The patient's body habitus combined with previous scar. Significant technical difficulty with positioning exposure the procedure itself. This added at least 40% increased operative time. And recommending a modifier 22. Specimens None Indications This is a 79-year-old male presents manage diagnosis in light of his marked physical decline and functional deficits he is here for urgent decompression f usion Description of Procedure Patient was met with identified informed was obtained. Patient was then taken to the operative suite underwent patient placed in prone position object tabletop Александр frame. All bony prominences well-padded eyes inspected to ensure no external pressure placed upon them. This point lumbar spine is prepped and draped in normal sterile fashion. Sharp dissection with the assistance of Bovie cautery from down to and exposing the lamina transverse processes of L2 and the instrumentation L3-L4-L5. Marked scarring was of course noted creating additional challenging exposure. I then removed the end caps and rods at L3-L5 bilaterally. I then performed a complete laminectomy of L2 with bilateral middle facetectomies and foraminotomies including excision of the mass and loss of disc fragment that migrated both in the foramen and cephalad in the canal at L2-L3. Pedicle screws were then placed in L2 bilaterally with assistance of fluoroscopy and new lucas was placed from L2-L5. By way of transfer and approach left complete discectomy of L2-L3 was performed endplates corrected to subcortical mean bone and a 13 x 26 mm Spira cage filled with os design bone graft tapped in position. The rods were then compressed locked in the final position bilaterally. The transverse processes of L2-L3 burred to subcortical bleeding bone. Proteus combined with Koros bone graft placed in posterior gutters. For strep placed of exposed dura. 15 round IDA drain inserted. The incision was then closed with 1 Vicryl in the fascia 2-0 Vicryl subcutaneously and 4-0 Monocryl for final skin closure. Steri-Strips sterile dressing placed. Patient waken taken to PACU stable condition. Please note Blake Garcia was present of the entire procedure and on the patient positioning complex portion of the surgery and final skin closure. I attest to the content of the Intraoperative Record and any orders documented therein. Any exceptions are noted below.
--- NOTE | 2025-02-02 15:05 | Fluoroscopy Report ---
FL lumbar spine 2-3V CLINICAL HISTORY: L2-L3 DECOMPRESSION AND FUSION / L3-L5 HARDWARE REMOVAL COMPARISON STUDY: None FLUOROSCOPY TIME: 7 seconds FLUOROSCOPY IMAGES: 2 EXPOSURE DOSE: 7.4 mGy FINDINGS: Fluoroscopy was provided for lumbar surgery. IMPRESSION: Intraoperative fluoroscopy. ACT 112: Negative or not required by law. Electronically signed by: Matthew Avalos M.D. 02/02/2025 3:04 PM
--- NOTE | 2025-02-02 15:38 | Hospitalist Consultation ---
Date of Consultation February 02, 2025 Assessment & Plan (1) Lumbar disc herniation with radiculopathy: (2) Back pain: (3) CAD (coronary artery disease): (4) Atrial fibrillation: (5) CHF (congestive heart failure): (6) Diabetes mellitus, type 2: (7) Hypertension: (8) Hyperlipidemia: (9) GERD (gastroesophageal reflux disease): Plan Pt is a 79 yo male with PMH of CAD, A-fib with watchman, CHF, DM2, HTN, GERD, gout, and HLD who presented with intractable back pain. Pt underwent L3-5 decompression and fusion with hardware removal with Dr. Celaya on 02/02. #S/P Lumbar surgery - Pain control per orthopedic surgery regimen - On cefazolin 2g q8h x 9 bags - On Decadron 6mg qd x 3 d - PT/OT eval ordered #CAD/CHF Last Echo from 01/2024 showed moderate left ventricular hypertrophy, EF 55%, mild-moderate MR, trace AR. - Continue metoprolol 25mg qam, isosorbide 60mg qpm - Resume Bumetanide 3mg qd - Resume KCl 20mEq qd #A-fib s/p watchman 05/2023 - Resume asa 81 mg in AM #DMT2 A1c is 7.6%. Using basal insulin and Ozempic at home. - Glycemic consult already in place - Decadron intraoperatively noted Chronic conditions: GERD-Continue pantoprazole Gout- Continue allopurinol HLD- Continue rosuvastatin and ezetimibe RLS- Continue ropinrole, gabapentin BPH- tamsulosin 0.4mg Insomnia-Continue Trazodone prn for difficulty sleeping Dispo: Med/surg Diet: Heart healthy/DMT2 VTE: SCDs Code: Full Supervising Physician Co-Signing Physician Notes I also saw the patient and confirmed ba portions of the clinical history and physical exam. I agree with the impression and plan as noted in the resident documentation. Resume home medications as noted above. Glycemic consult appreciated; anticipate bump in readings given interoperative Decadron. Pain control via surgery service, seems well controlled at present. History of Present Illness Reason for Consultation: Medical management Requesting Physician: Dr. Belia DO Attending Physician: Augustine Celaya DO History of Present Illness Pt is a 79 yo male with PMH of CAD, A-fib with watchman, CHF, DM2, HTN, GERD, gout, and HLD who presented with intractable back pain. Pt underwent lumbar decompression with hardware removal with Dr. Celaya on 02/02. POst procedure, pt reports left upper thigh is feeling less numb than before surgery. He has mild pain at incision, but tolerable. Pt denies CP, SOB, abdominal pain, N/V, dizziness or headache. Allergies Allergy/AdvReac Type Severity Reaction Status Date / Time No Known Allergies Allergy Verified 05/24/24 06:45 Home Medications Medication Instructions Recorded Confirmed Type metolazone 2.5 mg tablet 2.5 mg PO 2XWK 06/15/22 02/01/25 History trazodone 50 mg tablet 50 mg PO HS PRN Sleep 06/15/22 02/01/25 History aspirin 81 mg capsule 81 mg PO QAM 04/18/24 02/01/25 History docusate sodium 100 mg capsule 200 mg PO DAILY 05/24/24 02/01/25 History (Colace) oxycodone 5 mg tablet 5 mg PO Q6H PRN pain #30 tabs 05/24/24 02/01/25 Rx tramadol 50 mg tablet 50 mg PO Q6H PRN pain, moderate 05/24/24 02/01/25 Rx #30 tabs cyanocobalamin (vitamin B-12) 1,000 mcg PO DAILY #30 caps 05/26/24 02/01/25 Rx 1,000 mcg capsule allopurinol 300 mg tablet 300 mg PO DAILY 02/01/25 02/01/25 History amoxicillin 500 mg capsule 2,000 mg PO ONCE 02/01/25 02/01/25 History bumetanide 2 mg tablet 3 mg PO DAILY 02/01/25 02/01/25 History clopidogrel 75 mg tablet 75 mg PO 3XWK 02/01/25 02/01/25 History colchicine 0.6 mg tablet 0.6 mg PO UD PRN FLARE 02/01/25 02/01/25 History cyclobenzaprine 10 mg tablet 10 mg PO HS 02/01/25 02/01/25 History diclofenac sodium 1 % topical gel 2 g topical BID PRN RIGHT KNEE PAIN 02/01/25 02/01/25 History ezetimibe 10 mg tablet 10 mg PO DAILY 02/01/25 02/01/25 History fluticasone fur. 100 mcg-umeclid 1 ea inhalation DAILY 02/01/25 02/01/25 History 62.5 mcg-vilant 25 mcg inhalat.powder (Trelegy Ellipta) fluticasone propionate 50 2 spray intranasal HS 02/01/25 02/01/25 History mcg/actuation nasal spray,suspension gabapentin 300 mg capsule 900 mg PO HS 02/01/25 02/01/25 History insulin glargine 100 unit/mL (3 58 unit subcut HS 02/01/25 02/01/25 History mL) subcutaneous pen (Basaglar KwikPen U-100 Insulin) isosorbide mononitrate 60 mg 60 mg PO DAILY 02/01/25 02/01/25 History tablet,extended release 24 hr metoprolol succinate 25 mg 25 mg PO QAM 02/01/25 02/01/25 History tablet,extended release 24 hr nitroglycerin 0.4 mg sublingual 0.4 mg sublingual .EVERY 3 MINUTES 02/01/25 02/01/25 History tablet X3 PRN Chest Pain pantoprazole 40 mg tablet,delayed 40 mg PO BID 02/01/25 02/01/25 History release potassium chloride 20 mEq 20 meq PO UD 02/01/25 02/01/25 History tablet,extended release(part/cryst) pramipexole 0.5 mg tablet 1 mg PO HS 02/01/25 02/01/25 History rosuvastatin 10 mg tablet 10 mg PO 2XWK 02/01/25 02/01/25 History semaglutide 0.25 mg or 0.5 mg (2 0.5 mg subcut WK 02/01/25 02/01/25 History mg/3 mL) subcutaneous pen injector (Ozempic) tamsulosin 0.4 mg capsule 0.4 mg PO QAM 02/01/25 02/01/25 History Patient History Medical History (Updated 02/02/25 @ 07:51 by Augustine Celaya DO) [place] ([place]) CAD (coronary artery disease) - S/p CABG (LOPEZ to LAD, SVG to diagonal, SVG to marginal, and SVG to RCA) in 1995 - 2002- "multiple stents placed including LM stenting" (no specific details of procedure per records) - September 2011 cath- patent LOPEZ graft to LAD and SVG to diagonal; vein graft to marginal and RCA were occluded; LM stent patent and supplying blood flow to Cx which collateralized the distant RCA (treated with medical therapy since that time) - September 03, 2022- GERSON to vein graft to diagonal branch (had ostial 90% lesion) - On Plavix 3 days week Presence of Watchman left atrial appendage closure device 05/2023, [place] History of hypertension Diabetes mellitus, type 2 IDDM CHF (congestive heart failure) Follows with [facility] > with [facility] EF > 55% on 01/2024 ECHO Atrial fibrillation f/u [facility] s/p Watchman device 05/2023 NSTEMI (non-ST elevated myocardial infarction) August 2021 PAD (peripheral artery disease) Low extremities - May 2019- underwent multiple stenting and balloon angioplasty procedures by Dr Sorensen Carotid artery disease S/p stent to right ICA 05/2021 (patent on 10/2021 carotid doppler) Hx of gout occ flares- no recent flares GERD (gastroesophageal reflux disease) well controlled and stable DVT (deep venous thrombosis) 2020 > can't recall which leg > unknown cause Poor historian History of COVID-21 May 2019 > not hospitalized, no residual effects Hyperlipidemia Surgical History Hx of heart surgery 05/2023, placement Watchman device, [place]; f/u [facility] History of lumbar surgery 06/18/22, L4-L5 disectomy and fusion History of coronary artery bypass graft 4 vessels in 1995, [facility]; f/u dr. farrukh [facility]cke[facility] History of repair of rotator cuff left History of tooth extraction all upper teeth History of esophagogastroduodenoscopy (EGD) History of colonoscopy History of appendectomy age 13 H/O carotid angioplasty May 2021 > right side History of cardiac cath - S/p CABG (LOPEZ to LAD, SVG to diagonal, SVG to marginal, and SVG to RCA) in 1995 - 2002- "multiple stents placed including LM stenting" (no specific details of procedure per records) - September 2011 cath- patent LOPEZ graft to LAD and SVG to diagonal; vein graft to marginal and RCA were occluded; LM stent patent and supplying blood flow to Cx which collateralized the distant RCA (treated with medical therapy since that time) - October 2021- GERSON to vein graft to diagonal branch (had ostial 90% lesion) Family History Mother Diabetes Social History Smoking Status: Never smoker Tobacco Type: Cigarettes Smoking End Date: 1995; Second Hand Exposure: No; Do You Dip or Chew Tobacco: Yes; Tobacco Cessation Education Requested by Patient: No Hx Alcohol Use: Yes Alcohol type: beer Hx Substance Use: No Preferred Language: Eritrean Communication Ability: Effective Directory Compiler Required: No Beliefs That Will Affect Care: None Current Living Situation: Other Current Living Situation Comment: Girlfriend (Jacki Slaughter) Other Information That Helps Us Care for You: No Feels Safe at Home: Yes Safety Concerns: Feels Safe At This Time Assistive Devices: Cane and Walker Review of Systems Review of Systems: As per HPI Physical Exam Physical Exam: Gen: NAD HENT: Normocephalic, atraumatic. Trachea midline, no thyromegaly Cardio: Irregular rhythm, normal rate, no murmurs or clicks. Resp: CTAB, Equal bilateral chest rise, no increased work of breathing GI: Non distended, soft, non tender, normoactive bowel sounds : Mccall in place MSK: Moving all 4 extremities independently Skin: Dry, of normal skin tone, diffuse bruising at bilateral forearms Neuro: A& O x 3, normal affect, no focal deficits Results & Data Results & Data Vital Signs (Past 12 Hours) Vital Signs Temp Pulse Resp BP Pulse Ox O2 Del Method 02/02/25 12:33 36.7 C 78 18 150/95 H 93 Room Air 02/02/25 08:10 36.4 C L 76 16 134/68 93 Room Air Resident Activity Tracking Resident Involvement: Resident Care Provided Care Provided: Adult Hospital Medicine (2) Back pain Back pain laterality: unspecified Back pain location: low back pain Chronicity: acute Sciatica presence: unspecified whether sciatica present Qualified Code(s): M54.50 - Low back pain, unspecified
--- NOTE | 2025-02-02 16:21 | Anesthesiology Progress Note ---
Date of Service February 02, 2025 Anesthesia Post Procedure Vital Signs Vital Signs: Temp Pulse Pulse Resp BP Pulse Ox O2 Del Method 02/02/25 16:05 36.3 C L 79 14 158/88 H 99 Nasal Cannula 02/02/25 15:55 85 21 173/78 H 98 Nasal Cannula 02/02/25 15:45 85 19 126/69 99 Nasal Cannula 02/02/25 15:35 73 25 H 114/87 98 Nasal Cannula 02/02/25 15:28 36.0 C L 82 15 167/80 H 99 Oxymask 02/02/25 12:33 36.7 C 78 18 150/95 H 93 Room Air 02/02/25 08:10 36.4 C L 76 16 134/68 93 Room Air 02/02/25 00:32 36.3 C L 52 L 18 140/87 96 Room Air 02/01/25 17:41 36.3 C L 72 16 155/81 H 93 Room Air 02/01/25 17:41 36.3 C L 72 16 155/81 H 93 Room Air 02/01/25 17:30 65 16 145/77 H 96 Room Air O2 Flow Rate 02/02/25 16:05 2 02/02/25 15:55 2 02/02/25 15:45 2 02/02/25 15:35 4 02/02/25 15:28 6 02/02/25 12:33 02/02/25 08:10 02/02/25 00:32 02/01/25 17:41 02/01/25 17:41 02/01/25 17:30 Pain Intensity Back: Pain Intensity: 2 Medial Back: Pain Intensity: 4 Transfer of Care Handoff Completed per policy Notes Mental Status: alert / awake / arousable Patient Amnestic to Procedure: Yes Nausea / Vomiting: adequately controlled Pain: adequately controlled Airway Patency, RR, SpO2: stable & adequate BP & HR: stable & adequate Hydration State: stable & adequate Anesthetic Complications: no major complications apparent and Pt Satisfied with anesthetic care
[2025-02-02] MEDS ORDERED: ONDANSETRON 4 MG OD TAB PO PRN (16:33)
[2025-02-02] MEDS ORDERED: SOD PHOSPHATE/SOD BIPHOSPHATE ENEMA 132 ML BTL PR PRN (16:33)
[2025-02-02] MEDS ORDERED: ACETAMINOPHEN 1,000 MG/100 ML VIAL IV PRN (16:33)
[2025-02-02] MEDS ORDERED: MAGNESIUM HYDROXIDE SUSP 30 ML UDC PO PRN (16:33)
[2025-02-02] MEDS ORDERED: HYDROmorphone INJ 1 MG/ML SYRINGE IV PRN (16:33)
[2025-02-02] MEDS ORDERED: PROMETHAZINE 12.5 MG/50.5 ML BAG IV PRN (16:33)
[2025-02-02] MEDS ORDERED: LORazepam 0.5 MG TAB PO PRN (16:33)
[2025-02-02] MEDS ORDERED: DO NOT ADMINISTER PNEUMOCOCCAL VACCINE PRN (16:33)
[2025-02-02] MEDS ORDERED: METOCLOPRAMIDE HCL INJ 5 MG/ML 2 ML VIAL IV PRN (16:33)
[2025-02-02] MEDS ORDERED: FAMOTIDINE 20 MG TAB PO PRN (16:33)
[2025-02-02] MEDS ORDERED: DO NOT ADMINISTER FLU VACCINE PRN (16:33)
[2025-02-02] MEDS ORDERED: NALOXONE HCL 0.4 MG/1 ML VIAL/CARP IV PRN (16:33)
[2025-02-02] MEDS ORDERED: HYDROmorphone INJ 0.5 MG/0.5 ML SYR IV PRN (16:33)
[2025-02-02] MEDS ORDERED: ALUMINUM/MAGNESIUM SUSP 30 ML UDC PO PRN (16:33)
[2025-02-02] MEDS ORDERED: ACETAMINOPHEN 500 MG TAB PO PRN (16:33)
[2025-02-02] MEDS ORDERED: LORazepam Inj 0.5 MG in SYRINGE 0.25 ML IV PRN (16:33)
[2025-02-02] MEDS ORDERED: diphenhydrAMINE Capsule 25 MG CAP PO PRN (16:33)
[2025-02-02] MEDS: SODIUM CHLORIDE 0.9% 1,000 ML IV SCH (16:47)
[2025-02-02] MEDS: INSULIN ASPART PER UNIT CHARGE SC SCH (17:48)
[2025-02-02] MEDS: BUMETANIDE 1 MG TAB PO ONE (21:09)
[2025-02-02] MEDS: GABAPENTIN 300 MG CAP PO SCH (21:10)
[2025-02-02] MEDS: LANTUS PER UNIT CHARGE SC SCH (21:12)
[2025-02-02] MEDS: ISOSORBIDE MONONITRATE 20 MG TAB PO SCH (21:13)
[2025-02-02] MEDS: ROSUVASTATIN CALCIUM 10 MG TAB PO SCH (21:14)
[2025-02-02] MEDS: POTASSIUM CHLORIDE CRTAB 20 MEQ TABCR PO PRN (21:24)
[2025-02-02] MEDS: DOCUSATE SODIUM/SENNA 50/8.6MG TAB PO SCH (21:24)
[2025-02-03] MEDS: INSULIN ASPART PER UNIT CHARGE SC SCH (02:54)
[2025-02-03] MEDS: POLYETHYLENE (MIRALAX) 17 GM PACK PO SCH (05:19)
[2025-02-03 06:27] LABS: Hematocrit (blood only) 34.5 % (42.0-52.0); Hemoglobin 10.7 g/dl (14.0-18.0); Immature Granulocytes # (auto) 0.01 K/uL (0.01-0.20); Immature Granulocytes % (auto) 0.2 %; Mean Corpuscular Hemoglobin 28.8 pg (25.0-34.0); Mean Corpuscular Volume 93.0 fL (80.0-100.0); Platelet Count 126 K/uL (130-400); RDW Standard Deviation 61.5 fL (36.4-46.3); Red Blood Count 3.71 M/uL (4.70-6.10); White Blood Count 4.95 K/ul (4.8-10.8)
[2025-02-03 07:05] LABS: Anion Gap 8.0 (3-11); Blood Urea Nitrogen 18.0 mg/dl (6-23); Calcium 8.9 mg/dl (8.6-10.3); Carbon Dioxide 27.0 mmol/L (21-32); Chloride 105.0 mmol/L (98-107); Creatinine Clr Calc Pharmacy 60.4 ml/min; Glucose 179.0 mg/dl (70-99(Fasting)); Potassium 4.3 mmol/L (3.5-5.1); Sodium 140.0 mmol/L (136-145)
--- NOTE | 2025-02-03 07:40 | Hospitalist Progress Note ---
Date of Service February 03, 2025 Assessment & Plan (1) Lumbar disc herniation with radiculopathy: (2) Back pain: (3) CAD (coronary artery disease): (4) Atrial fibrillation: (5) CHF (congestive heart failure): (6) Diabetes mellitus, type 2: (7) Hypertension: (8) Hyperlipidemia: (9) GERD (gastroesophageal reflux disease): Plan Pt is a 79 yo male with PMH of CAD, A-fib with watchman, CHF, DM2, HTN, GERD, gout, and HLD who presented with intractable back pain. Pt underwent L3-5 decompression and fusion with hardware removal with Dr. Celaya on 02/02. #S/P Lumbar surgery - Pain control per orthopedic surgery regimen - On cefazolin 2g q8h x 9 bags - On Decadron 6mg qd x 3 d - PT/OT eval ordered, awaiting recommendations #CAD/CHF Last Echo from 01/2024 showed moderate left ventricular hypertrophy, EF 55%, mild-moderate MR, trace AR. - Continue metoprolol 25mg qam, isosorbide 60mg qpm WIll monitor BP, if low prior to PM isosorbide dose- consider holding - Resumed Bumetanide 3mg qd - Resumed KCl 20mEq qd #A-fib s/p watchman 05/2023 - Resumed asa 81 mg this AM #DMT2 A1c is 7.6%. Using basal insulin and Ozempic at home. Pharmacy glycemic consult appreciated Glargine 30u daily Aspart per SS, BSG 110-140, CF 40, CR 5 Chronic conditions: GERD-Continue pantoprazole Gout- Continue allopurinol HLD- Continue rosuvastatin and ezetimibe RLS- Continue ropinirole, gabapentin BPH- Resumed tamsulosin this am Insomnia-Continue Trazodone prn for difficulty sleeping Dispo: Med/surg Diet: Heart healthy/DMT2 VTE: SCDs Code: Full Admission and Anticipated Discharge Date Admission Date: February 01, 2025 Supervising Physician Co-Signing Physician Notes ATTESTATION I also saw the patient and confirmed ba portions of the history and exam. I agree with the impression and plan in the resident documentation, and as summarized below. Patient notes a small area of decreased sensation left upper lateral thigh but otherwise no complaints. EXAM 139/55, 78, 16 Alert and oriented. CV I/I, rate controlled Lungs with non labored respirations DATA Labs HgB 10.7 BUN 18, Cr 1.12 IMPRESSION & PLAN Post Op Day #1 lumbar surgery CAD/HFpEF, clinically stable Atrial fibrillation, rate controlled, Watchman Resume home medications Pain control per surgery service Anticipate d/c to rehab early next week Additional per resident documentation Subjective No acute events overnight. This morning, pt reports he has some pain primarily in his back over incision and numbness at lateral left proximal thigh that was present prior to surgery. Overall he is feeling better that before surgery yesterday morning. Pt denies CP, SOB, abdominal pain, N/V/D, headache, or dizziness. Pt reports having feeling in bilateral LEs, though has had constant numbness at bilateral 1st toes over the last few months. Review of Systems Review of Systems: As per HPI Physical Exam Physical Exam: Gen: NAD, laying comfortably in bed for exam. HENT: Normocephalic, atraumatic. Trachea midline, no thyromegaly Cardio: Irregular rhythm, normal rate, no murmurs appreciated Resp: CTAB, Equal bilateral chest rise, no increased work of breathing GI: Nondistended, soft, non tender, normoactive bowel sounds : Mccall in place, pale yellow urine in bag MSK: Moving all 4 extremities independently Skin: Dry, of normal skin tone, diffuse bruising at bilateral forearms Neuro: A& O x 3, normal affect, no focal deficits. Mild sensation deficit at left proximal lateral thigh reported present prior to surgery, but improved since surgery Results & Data Results & Data Vital Signs (Past 12 Hours) Vital Signs Temp Pulse Resp BP BP Pulse Ox O2 Del Method 02/03/25 02:38 36.6 C 94 H 16 112/67 90 Room Air 02/02/25 22:55 36.5 C 99 H 16 134/77 92 Room Air 02/02/25 21:00 Room Air Resident Activity Tracking Resident Involvement: Resident Care Provided Care Provided: Adult Hospital Medicine (2) Back pain Back pain laterality: unspecified Back pain location: low back pain Chronicity: acute Sciatica presence: unspecified whether sciatica present Qualified Code(s): M54.50 - Low back pain, unspecified
[2025-02-03] MEDS: LANTUS PER UNIT CHARGE SC SCH ×2 (08:52→21:34)
[2025-02-03] MEDS: dexAMETHasone 6 MG in SYRINGE 0 ML IV SCH (08:54)
[2025-02-03] MEDS: TAMSULOSIN HCL 0.4 MG CAP PO SCH (08:54)
[2025-02-03] MEDS: EZETIMIBE 10 MG TAB PO SCH (08:54)
[2025-02-03] MEDS: POTASSIUM CHLORIDE CRTAB 20 MEQ TABCR PO SCH (08:55)
--- NOTE | 2025-02-03 10:27 | Orthopedic Progress Note ---
Date of Service February 03, 2025 Assessment & Plan (1) Lumbar disc herniation with radiculopathy: Plan: At this time initiate physical therapy monitor his IDA output anticipate discharge to most likely rehab early next week. Admission and Anticipated Discharge Date Admission Date: February 01, 2025 Subjective Patient's leg pain is markedly improved. Physical Exam Physical Exam: Patient is currently bed. Is comfortable. Distracted testing. Results & Data Vital Signs (Past 12 Hours) Vital Signs Temp Pulse Resp BP BP Pulse Ox O2 Del Method 02/03/25 07:38 36.5 C 78 16 139/55 L 112/73 92 Room Air 02/03/25 02:38 36.6 C 94 H 16 112/67 90 Room Air 02/02/25 22:55 36.5 C 99 H 16 134/77 92 Room Air Queries Orthopedic Spine Obesity: Yes
--- NOTE | 2025-02-03 13:31 | Pharmacy Report ---
Pharmacy Glycemic Short Note 2 - Date of Service February 03, 2025 - Glycemic Short BSG Results (Last 24 hours): 02/02/25 02/02/25 02/02/25 15:41 16:46 20:24 Glucose POC Glucose 129 H 112 H 168 H 02/03/25 02/03/25 02/03/25 01:59 05:49 07:33 Glucose 179 H POC Glucose 156 H 248 H 02/03/25 11:29 Glucose POC Glucose 236 H OUTPATIENT ANTIDIABETIC REGIMEN: * Insulin glargine 58 units QHS * Semaglutide 0.5 mg SQ weekly HbA1c: 7.6% (02/01/25) ASSESSMENT: 02/03/25: * Blood sugars have begun to trend up (likely steroid-induced w/ no basal insulin on board) * POD #1 - ordered dexamethasone 6 mg IV daily x 3 days * Will be somewhat conservative given 68 mg/dL yesterday 02/02: * Raul did not require any insulin this admission thus far as his blood gl ucose has been in or below goal range. * Fasting BSG was 84mg/dL this morning. AM Lantus scale placed on hold as his BSG is below goal and he is scheduled to go to the OR this morning. Will add a Lantus scale (0, 10, or 15 units depending on BSG) at HS incase his BSG would rise from the stress of surgery. * Will continue bolus insulin regimen as previously ordered. 02/01: * 79 year old male with T2DM presents for referral for OR with Dr. Celaya. * Regular diet for now - NPO 02/02 at midnight. * Unable to confirm when patient got their last dose of Lantus before admission. * Glucose 166 then 110. Given glucose controlled this evening and patient will be NPO shortly for OR, will give scale of insulin glargine starting 103 AM. * Initiate Novolog regimen - combination of weight-based stress of 2 and estimated total daily insulin from home regimen. * Stressors: spinal surgery 02/02 PLAN FOR INPATIENT GLYCEMIC CONTROL: * Basal insulin - add basal * Lantus 30 units SC daily w/ IV dexamethasone * Lantus 0-10 units SC HS (see EHR for details) - to equal up to ~0.4 unit/kg of basal insulin * Bolus insulin - tighten * NovoLog per scale ACHS or Q6hrs while NPO * Goal Range: Low 110 mg/dL - High 140 mg/dL * Correction Factor: 20 mg/dL/unit * Nutritional / Prandial insulin per carb ratio of 1 unit per 5 grams CHO consumed
--- NOTE | 2025-02-04 07:28 | Hospitalist Progress Note ---
Date of Service February 04, 2025 Assessment & Plan (1) Lumbar disc herniation with radiculopathy: (2) Back pain: (3) CAD (coronary artery disease): (4) Atrial fibrillation: (5) CHF (congestive heart failure): (6) Diabetes mellitus, type 2: (7) Hypertension: (8) Hyperlipidemia: (9) GERD (gastroesophageal reflux disease): Plan Pt is a 79 yo male with PMH of CAD, A-fib with watchman, CHF, DM2, HTN, GERD, gout, and HLD who presented with intractable back pain. Pt underwent L3-5 decompression and fusion with hardware removal with Dr. Celaya on 02/02. Pt is making good progress in terms of return to function and reduction in pain. #S/P Lumbar surgery - Pain control per orthopedic surgery regimen - On cefazolin 2g q8h- 3 doses remaining - On Decadron 6mg qd- to be completed 02/05 - PT/OT following Recommend home with home health therapy #CAD/CHF Last Echo from 01/2024 showed moderate left ventricular hypertrophy, EF 55%, mild-moderate MR, trace AR. - Continue metoprolol 25mg qam, isosorbide 60mg qpm BP's have been stable Will monitor BP, if low prior to PM isosorbide dose- consider holding - Continue Bumetanide 3mg qd - Continue KCl 20mEq qd - Continue asa 81 mg #A-fib s/p watchman 05/2023 #DMT2 A1c is 7.6%. Using basal insulin and Ozempic at home. BSG has ranged from 121-236 Pharmacy glycemic consult appreciated Glargine 30u daily Aspart per SS, BSG 110-140, CF 40, CR 5 Chronic conditions: GERD-Continue pantoprazole Gout- Continue allopurinol HLD- Continue rosuvastatin and ezetimibe RLS- Continue ropinirole, gabapentin BPH- Continue tamsulosin Insomnia-Continue Trazodone prn for difficulty sleeping Dispo: Med/surg Diet: Heart healthy/DMT2 VTE: SCDs Code: Full Admission and Anticipated Discharge Date Admission Date: February 01, 2025 Supervising Physician Co-Signing Physician Notes ATTESTATION I also saw the patient and confirmed ba portions of the history and exam. I agree with the impression and plan in the resident documentation, and as summarized below. EXAM BP variable, a little higher this morning Alert and oriented. CV I/I, rate controlled Lungs with non labored respirations DATA Labs HgB 10.7 BUN 18, Cr 1.12 IMPRESSION & PLAN Post Op Day #2 lumbar surgery CAD/HFpEF, clinically stable Atrial fibrillation, rate controlled, Watchman Continue home medications Pain control per surgery service Discontinue IVF Anticipate d/c early next week, disposition pednding PT input Additional per resident documentation Subjective No acute events overnight. This morning, pt reports he has walked at lap around the unit using FWW with minimal to no pain. Overall feeling good. Pt is anticipating going home tomorrow with return to outpatient PT. Pt denies CP, SOB, abdominal pain, N/V/D, headache, or dizziness. Review of Systems Review of Systems: As per HPI Physical Exam Physical Exam: Gen: NAD, laying comfortably in bed for exam. HENT: Normocephalic, atraumatic. Trachea midline, no thyromegaly Cardio: Irregular rhythm, normal rate, no murmurs appreciated Resp: CTAB, Equal bilateral chest rise, no increased work of breathing GI: Nondistended, soft, non tender, normoactive bowel sounds MSK: Moving all 4 extremities independently Skin: Dry, of normal skin tone, diffuse bruising at bilateral forearms Neuro: A& O x 3, normal affect, no focal deficits. Mild sensation deficit at left proximal lateral thigh reported present prior to surgery, but improved since surgery Results & Data Results & Data Vital Signs (Past 12 Hours) Vital Signs Temp Pulse Resp BP Pulse Ox O2 Del Method 02/03/25 22:14 36.7 C 78 16 129/71 94 Room Air Resident Activity Tracking Resident Involvement: Resident Care Provided Care Provided: Adult Hospital Medicine (2) Back pain Back pain laterality: unspecified Back pain location: low back pain Chronicity: acute Sciatica presence: unspecified whether sciatica present Qualified Code(s): M54.50 - Low back pain, unspecified
--- NOTE | 2025-02-04 11:05 | Orthopedic Progress Note ---
Date of Service February 04, 2025 Assessment & Plan (1) Lumbar disc herniation with radiculopathy: Plan: At this time we will continue physical therapy monitor his IDA output. I willing to have Occupational Therapy weigh in on his progress. He may be a candidate for rehab versus home health. He would like to be discharged home Wednesday or Wednesday. Admission and Anticipated Discharge Date Admission Date: February 01, 2025 Subjective Patient's leg pain is improved. Tolerating physical therapy. Physical Exam Physical Exam: Patient currently bed. Is comfortable. Good strength testing. Results & Data Vital Signs (Past 12 Hours) Vital Signs Temp Pulse Resp BP Pulse Ox O2 Del Method 02/04/25 07:41 36.5 C 81 16 164/79 H 94 Room Air Queries Orthopedic Spine Obesity: Yes
[2025-02-04 22:24] VITALS: O2SAT 96
--- NOTE | 2025-02-05 07:11 | Hospitalist Progress Note ---
Date of Service February 05, 2025 Assessment & Plan (1) Lumbar disc herniation with radiculopathy: (2) Back pain: (3) CAD (coronary artery disease): (4) Atrial fibrillation: (5) CHF (congestive heart failure): (6) Diabetes mellitus, type 2: (7) Hypertension: (8) Hyperlipidemia: (9) GERD (gastroesophageal reflux disease): Plan Pt is a 79 yo male with PMH of CAD, A-fib with watchman, CHF, DM2, HTN, GERD, gout, and HLD who presented with intractable back pain. Pt underwent L3-5 decompression and fusion with hardware removal with Dr. Celaya on 02/02. Pt is making good progress in terms of return to function and reduction in pain. #S/P Lumbar surgery - Post op day #3 - Pain control per orthopedic surgery regimen - On cefazolin 2g q8h- Will be completed today - On Decadron 6mg qd- to be completed today - PT/OT following Recommend home with home health therapy #CAD/CHF Last Echo from 01/2024 showed moderate left ventricular hypertrophy, EF 55%, mild-moderate MR, trace AR. Vitals have been stable. - Continue metoprolol 25mg qam, isosorbide 60mg qpm BP's have been stable - Continue Bumetanide 3mg qd - Continue KCl 20mEq qd - Continue asa 81 mg #A-fib s/p watchman 05/2023 #DMT2 A1c is 7.6%. Using basal insulin and Ozempic at home. BSG has ranged from 130-207 Pharmacy glycemic consult appreciated Glargine 30u daily Aspart per SS, BSG 110-140, CF 40, CR 5 Consider reduction in home dose of basal insulin if having hypoglycemic events Chronic conditions: GERD-Continue pantoprazole Gout- Continue allopurinol HLD- Continue rosuvastatin and ezetimibe RLS- Continue ropinirole, gabapentin BPH- Continue tamsulosin Insomnia-Continue Trazodone prn for difficulty sleeping Dispo: Med/surg Diet: Heart healthy/DMT2 VTE: SCDs Code: Full Admission and Anticipated Discharge Date Admission Date: February 01, 2025 Subjective No acute events overnight. This morning, he continues with back pain over incisional area when he moves around. He continues walking laps are aound the unit with his walker. Pt has not had a gaston movement despite use of miralax. Pt denies significant abdominal discomfort, he is passing gas. Pt denies CP, SOB, N/V/D, headache, or dizziness. Review of Systems Review of Systems: As per HPI Physical Exam Physical Exam: Gen: NAD, laying comfortably in bed for exam. HENT: Normocephalic, atraumatic. Trachea midline, no thyromegaly Cardio: Irregular rhythm, normal rate, no murmurs appreciated Resp: CTAB, Equal bilateral chest rise, no increased work of breathing GI: Nondistended, soft, non tender, normoactive bowel sounds MSK: Moving all 4 extremities independently, Able to transfer from supine to sitting EOB independently Skin: Dry, of normal skin tone, diffuse bruising at bilateral forearms Neuro: A& O x 3, normal affect, no focal deficits. Mild sensation deficit at left proximal lateral thigh reported present prior to surgery, but improved since surgery Results & Data Results & Data Vital Signs (Past 12 Hours) Vital Signs Temp Pulse Resp BP Pulse Ox O2 Del Method 02/04/25 22:22 36.3 C L 66 16 136/76 96 Room Air Resident Activity Tracking Resident Involvement: Resident Care Provided Care Provided: Adult Hospital Medicine (2) Back pain Back pain laterality: unspecified Back pain location: low back pain Chronicity: acute Sciatica presence: unspecified whether sciatica present Qualified Code(s): M54.50 - Low back pain, unspecified
[2025-02-05 07:27] VITALS: BP 157/88; PULSE 78; RESP 18; TEMP 97.5
--- NOTE | 2025-02-05 09:17 | Discharge Summary ---
Date of Service February 05, 2025 Admission HPI Per Admitting Provider This is a 79-year-old male well-known to mostly presents to my office yesterday with his daughter. He has had a marked decline in status over the past several weeks with severe left buttock and left anterior thigh pain. He presents in a wheelchair as he is unable to ambulate secondary to the severe pain. He denies any right lower extremity discomfort. Denies any specific trauma fall or event that precipitated his presentation. Principal Diagnosis Lumbar disc herniation with radiculopathy Discharge Data Allergies Allergy/AdvReac Type Severity Reaction Status Date / Time No Known Allergies Allergy Verified 05/24/24 06:45 Consultations 02/01/25 14:02 ED Decision to Admit Stat 02/01/25 17:41 Consult Internal Medicine Routine 02/02/25 07:54 Consult Anesthesiology Stat Procedures Performed Operation Date: 02/02/25 11:05 Actual Procedures p L2-L3 Decompresion and Fusion,(Not Applicable) - Augustine Celaya DO s L3-L5 Hardware Removal(Not Applicable) - Augustine Celaya DO Ordered Studies 02/02/25 11:05 FL lumbar spine 2-3V Routine Hospital Course (1) Lumbar disc herniation with radiculopathy: Patient was admitted with severe radiculopathy and leg weakness underwent surgery in the next day. He tolerated procedure well. Was up and ambulating throughout the weekend. Improving with physical therapy. IDA drain decreasing. Pain well-controlled. Subsidy discharged home. Discharge orders instructions from the chart for further review. Total Time Total Time Spent Total Time Spent (In Minutes): 20 minutes Discharge Plan Discharge Items Patient Disposition: Home - Home Health Services Reason For Visit: LUMBAR DISK HERNIATION Discharge Diagnosis: Lumbar disc herniation with Condition on Discharge: Fair Activity: As commented below Non-emergency contact: Primary Care Provider Call non-emergency contact if: you have any medication questions Follow-up/Referrals: Gala Hawkins MD [Primary Care Provider] - Diet: Regular Addtl Attending Provider Instructions: ACTIVITY RECOMMENDATIONS: SELF CARE INSTRUCTIONS AFTER THORACIC/LUMBAR FUSIONS 1. You may walk to your tolerance. It is good exercise for your legs and back. Expect some back and intermittent leg aches and pains. 2. You may perform "counter-top" level activities (make a sandwich, enrique with a project, etc.). 3. No bending or lifting of more than 10 pounds or back twisting of any nature (roll like a log when turning in bed). 4. You may ride in a car for 20-30 minutes at a time. No driving until after your first visit with your doctor. 5. Frequent changes of position and restricting sitting to 30 minutes at a time will help limit the amount of back spasms and stiffness you may experience. 6. You may discontinue the use of ambulatory aids (cane, crutches, etc.) once your strength and confidence allow. 7. You may inspector and hand packager the shower and let water strike your incision when you arrive home at least once daily. Do not take a tub bath, sit in a hot tub or go into a swimming pool until after your first recheck in the office. 8. You may resume previous diet. SPECIAL CARE INSTRUCTIONS: VERY IMPORTANT TO READ AND REVIEW A. Your surgical incision has been closed with a cosmetic suture under the skin that will dissolve in about 6 weeks. In 14 days, you can use a pair of clean scissors and cut the suture that is left outside of the skin at the ends of your incision. 1. The small skin tapes can be removed 7 days after surgery if they have not fallen off by that point. 2. You may keep the wound open to air as much as possible to promote healing after post-op day number 5 unless told otherwise by your doctor. 3. If you think the wound looks like it is becoming infected (redness or worsening drainage) and/or you are experiencing fever, chill or worsening back pain and muscle spasms, contact the office so that we may evaluate you as soon as possible. B. Complications are uncommon, but please contact us if you have any signs or symptoms of: 1. wound infection (fever higher than 102.5 degrees F, redness, separation of wound, drainage, or increasing pain from the incision) 2. blood clots in legs (pain, swelling, redness and warmth in legs) 3. urinary tract infection (fever higher than 102.5 degrees F, burning upon urination or increased frequency of urination) 4. nerve problems (inability to walk on your toes or heels, numbness, loss of bowel or bladder control) 5. any other symptoms that concern you C. Please call the office at if you have any concerns or questions about your operation or recovery. D. No smoking! Smoking drastically decreases the chance of a solid fusion. E. Do not take any anti-inflammatory medications (Indocin, Advil, Motrin, Aspirin, Naprosyn, etc.) as these may inhibit the chance of a solid fusion. Tylenol is okay to take for pain. MANAGING PAIN AFTER SPINAL SURGERY 1. Narcotic medication is intended for short-term use and will be provided for surgical pain. Surgical pain usually lasts for a period of 4-6 weeks. Narcotic medication includes Percocet, Vicodin, Darvocet, Tylenol #3 or Lortab. 2. Longer-term pain is more appropriately treated with non-narcotic medication such as Tylenol ES. 3. Muscle spasm is not appropriately treated with narcotics. Muscle relaxers such as Soma, Flexeril or Skelaxin can be used along with Tylenol ES. 4. Remember that we all live with some "aches and pains". This is not unusual or uncommon after an injury or as we get older. a. Back pain is expected and may include muscle spasms for 4 to 6 weeks after surgery. The pain should gradually improve. If the pain worsens for no apparent reason, please contact the office. b. Intermittent leg pain may also be experienced and should not be concerned about unless it worsens for no apparent reason. If so, please contact the office. 5. We will provide appropriate medication within the normal guidelines of their prescribed use. We will also be very cautious and aware of potential abuse and extended duration of patients' medication needs. a. Pain medications are for your comfort and to assist with sleep and rest so that the tissue can heal. They are not provided in order to return to normal activity and should not be used through the day. To do so or worsening pain at night can result from ongoing tissue damage and development of tolerance to the prescribed medicine. 6. Please allow 2-3 days to process refills. Prescriptions will not be mailed but must be picked up at the office. FOLLOW UP VISIT: Keep your scheduled follow-up appointment. Any questions, please call the office at . Pending Studies at Discharge: No Stand-Alone Forms: My [employer], Smoking Cessation Medications and IA Order Prescriptions: New tramadol 50 mg tablet 50 mg PO Q6H PRN (Reason: pain, moderate) Qty: 30 0RF oxycodone 5 mg tablet 5 mg PO Q6H PRN (Reason: pain) Qty: 30 0RF Rx Instructions: Oxycodone for severe pain tramadol for moderate Continued metolazone 2.5 mg Tablet 2.5 mg PO 2XWK trazodone 50 mg Tablet 50 mg PO HS PRN (Reason: Sleep) aspirin 81 mg Capsule 81 mg PO QAM docusate sodium [Colace] 100 mg Capsule 200 mg PO DAILY tramadol 50 mg tablet 50 mg PO Q6H PRN (Reason: pain, moderate) Qty: 30 0RF oxycodone 5 mg tablet 5 mg PO Q6H PRN (Reason: pain) Qty: 30 0RF cyanocobalamin (vitamin B-12) 1,000 mcg capsule 1,000 mcg PO DAILY Qty: 30 0RF cyclobenzaprine 10 mg tablet 10 mg PO HS bumetanide 2 mg tablet 3 mg PO DAILY pramipexole 0.5 mg tablet 1 mg PO HS Rx Instructions: 2 TABLET DOSE pantoprazole 40 mg tablet,delayed release (DR/EC) 40 mg PO BID insulin glargine [Basaglar KwikPen U-100 Insulin] 100 unit/mL (3 mL) insulin pen 58 unit SUBCUT HS clopidogrel 75 mg tablet 75 mg PO 3XWK isosorbide mononitrate 60 mg tablet extended release 24 hr 60 mg PO DAILY potassium chloride 20 mEq tablet,ER particles/crystals 20 meq PO UD Rx Instructions: TAKE 1 TABLET EVERY TIME YOU TAKE FUROSEMIDE tamsulosin 0.4 mg capsule 0.4 mg PO QAM gabapentin 300 mg capsule 900 mg PO HS allopurinol 300 mg tablet 300 mg PO DAILY ezetimibe 10 mg tablet 10 mg PO DAILY diclofenac sodium 1 % gel 2 g TOPICAL BID PRN (Reason: RIGHT KNEE PAIN) nitroglycerin 0.4 mg tablet, sublingual 0.4 mg sublingual .EVERY 3 MINUTES X3 PRN (Reason: Chest Pain) metoprolol succinate 25 mg tablet extended release 24 hr 25 mg PO QAM rosuvastatin 10 mg tablet 10 mg PO 2XWK Rx Instructions: TUESDAYS & THURSDAYS Ozempic 0.25 mg or 0.5 mg (2 mg/3 mL) pen injector 0.5 mg SUBCUT WK Rx Instructions: SUNDAYS amoxicillin 500 mg capsule 2,000 mg PO ONCE Rx Instructions: TAKE 4 CAPSULES 1 HOUR BEFORE DENTAL PROCEDURE colchicine 0.6 mg tablet 0.6 mg PO UD PRN (Reason: FLARE) Rx Instructions: TAKE 2 TABLETS AT ONSET OF FLURE UP THEN 1 TAB 1 HOUR LATER fluticasone propionate 50 mcg/actuation spray,suspension 2 spray INTRANASAL HS Trelegy Ellipta 100-62.5-25 mcg blister with device 1 ea INHALATION DAILY Discharge Orders: Discharge Order (Routine); Ordered 02/05/25 Ordered By: Augustine Montero/Other Patient Handouts: Managing Type 2 Diabetes Admission Data Admit Date/Time: 02/01/25 15:55 Attending Provider: Augustine Celaya Admit Provider: Augustine Celaya Primary Care Provider: Gala Hawkins Other Providers: Augustine Celaya; Raulito Pablo; Mickey Aguayo
--- NOTE | 2025-02-05 14:13 | Billing Data ---
Date of Service February 05, 2025 Coding Level of Care Code 14718 SUB INP/OBS CARE
== END 2025-02-05 13:51 | disposition home or self-care (01) | DRG 402 ==
LOC: ED 13:44 → 3E 15:55

== ENCOUNTER 2025-04-10 08:05 | Inpatient (IN) ==
--- NOTE | 2025-04-05 14:10 | Anesthesiology Consultation ---
Date of Service April 05, 2025 Assessment & Plan (1) Encounter for pre-operative examination: - Check BSG DOS - Infectious disease screening: Per assessment on 04/05/25- No known recent infectious disease contacts or current infectious disease symptoms. - GLP-1 medication instructions: Patient informed by PAT to stop 7 days prior to surgery- voiced understanding. DOS 04/10. Advised last dose to be 04/01. - Per cardio phone note 03/28/24: "Please inform patient stress test imaging mildly abnormal but similar to previous stress testing consistent with known coronary anatomy. Moderate risk from cardiac ischemic standpoint for upcoming surgery." - Per cardio form 03/27/24: "Patient optimized for scheduled surgery." "Low risk to hold ASA and Plavix 5-7 days prior" - S/P L3-5 decompression/fusion, hardware removal 05/24/24: Grade 2 view, Dykes#2, ETT 7.5, [facility] - Cardiology visit 12/26/24: "Raul was a bit volume overloaded last visit following his surgery but now appears euvolemic. He already has some orthostatic symptomology and a history of azotemia so I will keep his diuretic regimen where it is at present.. 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 Sleep apnea is undoubtably playing a role but he did not tolerate CPAP therapy. He currently has no edema on exam. His Watchman device seems to be effectively closing his left atrial appendage and the thrombus Has resolved.. If his blood pressure remains elevated and creatinine improves I would consider adding a lowdose of Entresto.." 6 month f/u recommended. - Preop EKG: Most recent ECG was done at [facility] 02/01/25 noting A. fib at 69bpm; ST depression in inferior leads and Inferior lead TWI noted compared to previous ECG 06/20/2022 per saw operator comparison. Patient subsequently underwent Posterior lumbar discectomy/fusion 02/01/25 at [facility] without noted issue. At anesthesiologist discretion DOS if updated preop EKG needed from their perspective. - S/P L2-3 Posterior lumbar discectomy/fusion 02/01/25: Grade 2 view, MAC#4, ETT 7.5, [facility]. No issues noted per post-op anesthesia progress note. - PCP visit 11/7/25: "..needs to start PT.. Chronic obstructive pulmonary disease.. breathing better today.. has some PND, will restart Flonase at bed.. Chronic kidney disease stage 2.. better than previous.. Follow Up: 6 months.." - Preop testing: No surgeon preop orders available at time of current review. No recent/preop labs received. Will order CBC/BMP/T&S for DOS. At surgeon/anesthesiologist discretion DOS if further needed preoperatively from their perspective. - Acceptable risk for surgery pending evaluation/preop labs DOS. Chart Review Chart Review: Patient NOT seen in Pre Admission Testing History Surgery Operation Date: 04/10/25 09:45 Proposed Procedures p Revision Fusion L2 to L3, Kyphoplasty L2, Possible T12 to L3 - Augustine Celaya DO Height/Weight Height: 5 ft 6 in Weight: 90.718 kg Allergies Allergy/AdvReac Type Severity Reaction Status Date / Time No Known Allergies Allergy Verified 04/05/25 12:57 Medications Home Medications Medication Instructions Recorded Confirmed Last Taken metolazone 2.5 mg tablet 2.5 mg PO 2XWK 06/15/22 04/05/25 05/18/24 trazodone 50 mg tablet 50 mg PO HS PRN Sleep 06/15/22 04/05/25 06/16/22 20:00 aspirin 81 mg capsule 81 mg PO QAM 04/18/24 04/05/25 05/23/24 07:00 docusate sodium 100 mg capsule 200 mg PO DAILY 05/24/24 04/05/25 05/23/24 19:00 (Colace) cyanocobalamin (vitamin B-12) 1,000 mcg PO DAILY #30 caps 05/26/24 04/05/25 Unknown 1,000 mcg capsule allopurinol 300 mg tablet 300 mg PO DAILY 02/01/25 04/05/25 Unknown amoxicillin 500 mg capsule 2,000 mg PO ONCE 02/01/25 04/05/25 Unknown bumetanide 2 mg tablet 3 mg PO DAILY PRN SOB 02/01/25 04/05/25 Unknown clopidogrel 75 mg tablet 75 mg PO WK 02/01/25 04/05/25 Unknown colchicine 0.6 mg tablet 0.6 mg PO UD PRN FLARE 02/01/25 04/05/25 Unknown cyclobenzaprine 10 mg tablet 10 mg PO HS 02/01/25 04/05/25 Unknown diclofenac sodium 1 % topical gel 2 g topical BID PRN RIGHT KNEE PAIN 02/01/25 04/05/25 Unknown ezetimibe 10 mg tablet 10 mg PO HS 02/01/25 04/05/25 Unknown fluticasone fur. 100 mcg-umeclid 1 ea inhalation DAILY 02/01/25 04/05/25 Unknown 62.5 mcg-vilant 25 mcg inhalat.powder (Trelegy Ellipta) fluticasone propionate 50 2 spray intranasal HS 02/01/25 04/05/25 Unknown mcg/actuation nasal spray,suspension gabapentin 300 mg capsule 900 mg PO HS 02/01/25 04/05/25 Unknown insulin glargine 100 unit/mL (3 58 unit subcut HS 02/01/25 04/05/25 Unknown mL) subcutaneous pen (Basaglar KwikPen U-100 Insulin) isosorbide mononitrate 60 mg 60 mg PO HS 02/01/25 04/05/25 Unknown tablet,extended release 24 hr metoprolol succinate 25 mg 25 mg PO QAM 02/01/25 04/05/25 Unknown tablet,extended release 24 hr nitroglycerin 0.4 mg sublingual 0.4 mg sublingual .EVERY 3 MINUTES 02/01/25 04/05/25 Unknown tablet X3 PRN Chest Pain pantoprazole 40 mg tablet,delayed 40 mg PO BID 02/01/25 04/05/25 Unknown release potassium chloride 20 mEq 20 meq PO UD 02/01/25 04/05/25 Unknown tablet,extended release(part/cryst) pramipexole 0.5 mg tablet 1 mg PO HS 02/01/25 04/05/25 Unknown rosuvastatin 10 mg tablet 10 mg PO 2XWK 02/01/25 04/05/25 Unknown semaglutide 0.25 mg or 0.5 mg (2 0.5 mg subcut WK 02/01/25 04/05/25 Unknown mg/3 mL) subcutaneous pen injector (Ozempic) tamsulosin 0.4 mg capsule 0.4 mg PO QAM 02/01/25 04/05/25 Unknown tramadol 50 mg tablet 50 mg PO Q6H PRN pain, moderate 02/04/25 04/05/25 Unknown #30 tabs Past Medical History Medical History Atrial fibrillation Follows with Dr. Christian Lester, [facility] s/p Watchman device 05/2023 Previously taking Plavix once weekly until last dose 04/04/25; has been "weaned off of plavix" since Watchman procedure CAD (coronary artery disease) CABG (LOPEZ to LAD, SVG to diagonal, SVG to marginal, and SVG to RCA) in 1995 2002- "multiple stents placed including LM stenting" (no specific details of procedure per records) September 2011 cath- patent LOPEZ graft to LAD and SVG to diagonal; vein graft to marginal and RCA were occluded; LM stent patent and supplying blood flow to Cx which collateralized the distant RCA (treated with medical therapy since that time) September 03, 2022- GERSON to vein graft to diagonal branch (had ostial 90% lesion) Carotid artery disease S/p stent to right ICA 05/2021 CHF (congestive heart failure) Follows with [facility] Diabetes mellitus, type 2 IDDM DVT (deep venous thrombosis) 2020, unsure which side, unknown etiology GERD (gastroesophageal reflux disease) History of COVID-19 2019, resolved History of hypertension [place] (hard of hearing) Hx of gout No recent flare Hyperlipidemia NSTEMI (non-ST elevated myocardial infarction) 2021 Obesity PAD (peripheral artery disease) Low extremities 2019- underwent multiple stenting and balloon angioplasty procedures by Dr Edu Barnes historian Presence of Watchman left atrial appendage closure device 05/2023, [place] Past Family History Family History Mother Diabetes Past Surgical History Surgical History H/O carotid angioplasty Right (2021) History of appendectomy Age 13 History of cardiac cath CABG (LOPEZ to LAD, SVG to diagonal, SVG to marginal, and SVG to RCA) in 1995 2002- "multiple stents placed including LM stenting" (no specific details of procedure per records) September 2011 cath- patent LOPEZ graft to LAD and SVG to diagonal; vein graft to marginal and RCA were occluded; LM stent patent and supplying blood flow to Cx which collateralized the distant RCA (treated with medical therapy since that time) October 2021- GERSON to vein graft to diagonal branch (had ostial 90% lesion) History of colonoscopy History of coronary artery bypass graft CABG x4 (1995) History of esophagogastroduodenoscopy (EGD) History of lumbar surgery 06/18/22: L4-L5 discectomy and fusion 05/24/24: L3-5 decompression/fusion, hardware removal L4-5 02/01/25: L2-3 PLDF: MAC#4, ETT#7.5 Gr View 2 History of repair of rotator cuff Left History of tooth extraction All upper teeth Hx of heart surgery Watchman device (05/2023) Social History Smoking Status: Never smoker Do You Dip or Chew Tobacco: No Smoking End Date: 1984 Hx Alcohol Use: No Alcohol type: beer alcohol intake frequency: a few times a month Hx Substance Use: No substance use type: does not use Testing Electrocardiogram Date: 02/01/25 A. fib at 69bpm. Rightward axis. NS STA. ST depression in inferior leads and Inferior lead TWI noted compared to previous ECG 06/20/2022 per saw operator comparison. Patient had subsequent Chest X-Ray Date: 02/01/25 FINDINGS: The chest is well-expanded. Median sternotomy wires noted with moderate enlargement of the heart. No airspace consolidation, effusion or congestive changes. Trachea is patent and midline. Osseous structures demonstrate no acute abnormality. No radiopaque foreign body. IMPRESSION: Moderate enlargement of the heart, correlate clinically. Echocardiogram Date: 12/14/24 Mild cLVH. Paradoxical septal motion. Basal inferior wall akinesis. Moderate LAD. Mild MR. Moderate to severe TR. RVSP elevated at 50-60mmhg. LVEF 50%. (Per anesthesiology consultation note 05/01/24 prior 05/24/2024 L3-5 decompression/fusion, hardware removal at [facility], "Discussed pulm HTN/pressures with Dr Flores- patient can still proceed as scheduled.." Patient underwent 05/2024 + 01/2025 lumbar surgeries at [facility] without noted anesthesia issues) Stress Test Date: 03/23/24 Type: nuclear Perfusion imaging portion of this test is mildly abnormal. Does appear to be small to moderate size moderate intensity reversible defect involving predominantly inferolateral segment and partially involving the inferior wall. This appears to be somewhat similar to previous testing with known history of occluded SVG to RCA and OM LV function is mildly reduced with EF of 48% with slight inferior inferolateral HK and dyskinesis involving the septum EKG portion of this test was felt to be negative for ischemia, nondiagnostic due to baseline changes Patient did develop PVCs in recovery Mild pulse ox desaturation from 100 to 96% Did develop dyspnea with infusion of Lexiscan Cardiac Catheterization Date: 10/01/21 Elevated right-sided filling pressures with preserved cardiac index Severe multivessel [place] coronary disease Vein graft to the PDA and the vein graft to the OM branch were previously known to be occluded and were not injected Vein graft to the diagonal branch has an ostial 90% lesionthis was deemed to be the culprit vessel for the NSTEMI and is now status post GERSON x1 with excellent angiographic result LOPEZ to LAD is widely patent Other Testing Carotid doppler Date: 10/24/23 Patent right ICA stenosis. Less than 50% stenosis in the right ICA. Approximately 50% left proximal ICA stenosis.
[2025-04-10] MEDS ORDERED: ATROPINE SULFATE 0.1 MG/ML 10ML SYR IV PRN (09:06)
[2025-04-10] MEDS ORDERED: FLUMAZENIL 0.1 MG/1 ML 10 ML VIAL IV PRN (09:06)
[2025-04-10] MEDS ORDERED: ONDANSETRON INJ 2 MG/ML 2 ML VIAL IV PRN ×2 (09:06→13:48)
[2025-04-10] MEDS ORDERED: NALOXONE HCL 0.4 MG/1 ML VIAL/CARP IV PRN ×2 (09:06→13:48)
[2025-04-10] MEDS ORDERED: PROMETHAZINE HCL 6.25 MG in SODIUM CHLORIDE 0.9% 50 ML IV PRN (09:06)
[2025-04-10 09:18] LABS: Hematocrit (blood only) 39.4 % (42.0-52.0); Hemoglobin 12.3 g/dL (14.0-18.0); Immature Granulocytes # (auto) 0.02 K/uL (0.01-0.20); Immature Granulocytes % (auto) 0.3 %; Mean Corpuscular Hemoglobin 29.1 pg (25.0-34.0); Mean Corpuscular Volume 93.1 fL (80.0-100.0); Platelet Count 166 K/uL (130-400); RDW Standard Deviation 56.2 fL (36.4-46.3); Red Blood Count 4.23 M/uL (4.70-6.10); White Blood Count 6.55 K/ul (4.8-10.8)
[2025-04-10] MEDS: LR 60ML/HR IV SCH (09:26)
[2025-04-10] MEDS: CeleBREX 200 MG CAP PO SCH (09:28)
[2025-04-10] MEDS: GABAPENTIN 300 MG CAP PO SCH ×2 (09:28→22:35)
[2025-04-10] MEDS: ACETAMINOPHEN 500 MG TAB PO SCH (09:28)
[2025-04-10] MEDS ORDERED: MIDAZOLAM HCL 1 MG/ML 2ML VIAL ONE (09:28)
[2025-04-10] MEDS ORDERED: ONDANSETRON INJ 2 MG/ML 2 ML VIAL ONE ×2 (09:29→10:21)
[2025-04-10] MEDS ORDERED: ROCURONIUM BROMIDE 10 MG/ML 5 ML VIAL IV ONE ×2 (09:29→10:13)
[2025-04-10] MEDS ORDERED: DEXAMETHASONE SOD INJ 4 MG/ML VIAL ONE (09:29)
[2025-04-10] MEDS ORDERED: LIDOCAINE 2% 2 ML VIAL/AMP(20MG/ML) INFIL ONE (09:29)
[2025-04-10] MEDS ORDERED: PROPOFOL IV EMULSION 10 MG/ML 20 ML VIAL IV ONE (09:29)
--- NOTE | 2025-04-10 09:30 | History & Physical Bridge Note ---
Date of Service April 10, 2025 History & Physical Bridge Note I have examined the patient, reviewed the History & Physical and in the interval since the performance of the History & Physical I have noted the following changes of clinical significance: no changes noted
--- NOTE | 2025-04-10 09:31 | History & Physical Report ---
Date of Service April 10, 2025 Assessment & Plan (1) Lumbar compression fracture: Plan: L2 kyphoplasty, L2-L3 revision decompression fusion, possible T12-L3 History of Present Illness Chief Complaint: Back pain Primary Care Provider: Gala Hawkins MD This is a 71-year-old male known to me and is status post lumbar decompression and fusion with postoperative fracture of L2. Pain has been incapacitating marked in nature and is here for surgical intervention. Allergies Allergy/AdvReac Type Severity Reaction Status Date / Time No Known Allergies Allergy Verified 04/10/25 08:53 Home Medications Medication Instructions Recorded Confirmed Type metolazone 2.5 mg tablet 2.5 mg PO 2XWK 06/15/22 04/10/25 History trazodone 50 mg tablet 50 mg PO HS PRN Sleep 06/15/22 04/10/25 History aspirin 81 mg capsule 81 mg PO QAM 04/18/24 04/10/25 History docusate sodium 100 mg capsule 200 mg PO DAILY 05/24/24 04/10/25 History (Colace) cyanocobalamin (vitamin B-12) 1,000 mcg PO DAILY #30 caps 05/26/24 04/10/25 Rx 1,000 mcg capsule allopurinol 300 mg tablet 300 mg PO DAILY 02/01/25 04/10/25 History amoxicillin 500 mg capsule 2,000 mg PO ONCE 02/01/25 04/10/25 History bumetanide 2 mg tablet 3 mg PO DAILY PRN SOB 02/01/25 04/10/25 History clopidogrel 75 mg tablet 75 mg PO WK 02/01/25 04/10/25 History colchicine 0.6 mg tablet 0.6 mg PO UD PRN FLARE 02/01/25 04/10/25 History cyclobenzaprine 10 mg tablet 10 mg PO HS 02/01/25 04/10/25 History diclofenac sodium 1 % topical gel 2 g topical BID PRN RIGHT KNEE PAIN 02/01/25 04/10/25 History ezetimibe 10 mg tablet 10 mg PO HS 02/01/25 04/10/25 History fluticasone fur. 100 mcg-umeclid 1 ea inhalation DAILY 02/01/25 04/10/25 History 62.5 mcg-vilant 25 mcg inhalat.powder (Trelegy Ellipta) fluticasone propionate 50 2 spray intranasal HS 02/01/25 04/10/25 History mcg/actuation nasal spray,suspension gabapentin 300 mg capsule 900 mg PO HS 02/01/25 04/10/25 History insulin glargine 100 unit/mL (3 58 unit subcut HS 02/01/25 04/10/25 History mL) subcutaneous pen (Basaglar KwikPen U-100 Insulin) isosorbide mononitrate 60 mg 60 mg PO HS 02/01/25 04/10/25 History tablet,extended release 24 hr metoprolol succinate 25 mg 25 mg PO QAM 02/01/25 04/10/25 History tablet,extended release 24 hr nitroglycerin 0.4 mg sublingual 0.4 mg sublingual .EVERY 3 MINUTES 02/01/25 04/10/25 History tablet X3 PRN Chest Pain pantoprazole 40 mg tablet,delayed 40 mg PO BID 02/01/25 04/10/25 History release potassium chloride 20 mEq 20 meq PO UD 02/01/25 04/10/25 History tablet,extended release(part/cryst) pramipexole 0.5 mg tablet 1 mg PO HS 02/01/25 04/10/25 History rosuvastatin 10 mg tablet 10 mg PO 2XWK 02/01/25 04/10/25 History semaglutide 0.25 mg or 0.5 mg (2 0.5 mg subcut WK 02/01/25 04/10/25 History mg/3 mL) subcutaneous pen injector (Ozempic) tamsulosin 0.4 mg capsule 0.4 mg PO QAM 02/01/25 04/10/25 History tramadol 50 mg tablet 50 mg PO Q6H PRN pain, moderate 02/04/25 04/10/25 Rx #30 tabs Past Med/Surg History Problem List (Updated 04/10/25 @ 09:31 by Augustine Celaya DO) Lumbar compression fracture Lumbar disc herniation with radiculopathy Thrombocytopenia (Acute) Anemia (Acute) Back pain (Acute) B12 deficiency Hypomagnesemia Lumbosacral spondylosis with radiculopathy Hypotension Neurogenic claudication due to lumbar spinal stenosis CAD (coronary artery disease) Encounter for pre-operative examination Atrial fibrillation CHF (congestive heart failure) Diabetes mellitus, type 2 Hypertension Medical History Atrial fibrillation Follows with Dr. Christian Lester, [facility] s/p Watchman device 05/2023 Previously taking Plavix once weekly until last dose 04/04/25; has been "weaned off of plavix" since Watchman procedure CAD (coronary artery disease) CABG (LOPEZ to LAD, SVG to diagonal, SVG to marginal, and SVG to RCA) in 1995 2002- "multiple stents placed including LM stenting" (no specific details of procedure per records) September 2011 cath- patent LOPEZ graft to LAD and SVG to diagonal; vein graft to marginal and RCA were occluded; LM stent patent and supplying blood flow to Cx which collateralized the distant RCA (treated with medical therapy since that time) September 03, 2022- GERSON to vein graft to diagonal branch (had ostial 90% lesion) Carotid artery disease S/p stent to right ICA 05/2021 CHF (congestive heart failure) Follows with [facility] Diabetes mellitus, type 2 IDDM DVT (deep venous thrombosis) 2020, unsure which side, unknown etiology GERD (gastroesophageal reflux disease) History of COVID-19 2019, resolved History of hypertension [place] (hard of hearing) Hx of gout No recent flare Hyperlipidemia NSTEMI (non-ST elevated myocardial infarction) 2021 Obesity PAD (peripheral artery disease) Low extremities 2019- underwent multiple stenting and balloon angioplasty procedures by Dr Edu Barnes historian Presence of Watchman left atrial appendage closure device 05/2023, [place] Surgical History H/O carotid angioplasty Right (2021) History of appendectomy Age 13 History of cardiac cath CABG (LOPEZ to LAD, SVG to diagonal, SVG to marginal, and SVG to RCA) in 1995 2002- "multiple stents placed including LM stenting" (no specific details of procedure per records) September 2011 cath- patent LOPEZ graft to LAD and SVG to diagonal; vein graft to marginal and RCA were occluded; LM stent patent and supplying blood flow to Cx which collateralized the distant RCA (treated with medical therapy since that time) October 2021- GERSON to vein graft to diagonal branch (had ostial 90% lesion) History of colonoscopy History of coronary artery bypass graft CABG x4 (1995) History of esophagogastroduodenoscopy (EGD) History of lumbar surgery 06/18/22: L4-L5 discectomy and fusion 05/24/24: L3-5 decompression/fusion, hardware removal L4-5 02/01/25: L2-3 PLDF: MAC#4, ETT#7.5 Gr View 2 History of repair of rotator cuff Left History of tooth extraction All upper teeth Hx of heart surgery Watchman device (05/2023) Family History Mother Diabetes Social History Smoking Status: Never smoker Tobacco Type: Smokeless Tobacco (Dip or Chew) Smoking End Date: 1984; Second Hand Exposure: No; Do You Dip or Chew Tobacco: No; Tobacco Cessation Education Requested by Patient: No Hx Alcohol Use: No Hx Substance Use: No Preferred Language: Haitian Communication Ability: Effective Senior Mortgage Loan Processor Required: No Beliefs That Will Affect Care: None Current Living Situation: Other Current Living Situation Comment: friend lives with him Other Information That Helps Us Care for You: No Feels Safe at Home: Yes Safety Concerns: Feels Safe At This Time Assistive Devices: Cane, Denture - Upper, Glasses and Walker Physical Exam Physical Exam: Patient is alert and oriented Heart regular rhythm Lungs clear Results & Data Results & Data Vital Signs (Past 12 Hours) Vital Signs Temp Pulse Resp BP Pulse Ox O2 Del Method 04/10/25 09:08 36.7 C 83 20 145/73 H 97 Room Air
[2025-04-10 09:35] LABS: Anion Gap 7.0 (3-11); Blood Urea Nitrogen 25.0 mg/dl (6-23); Calcium 10.0 mg/dl (8.6-10.3); Carbon Dioxide 31.0 mmol/L (21-32); Chloride 101.0 mmol/L (98-107); Creatinine Clr Calc Pharmacy 68.4 ml/min; Glucose 125.0 mg/dl (70-99(Fasting)); Potassium 4.5 mmol/L (3.5-5.1); Sodium 139.0 mmol/L (136-145)
[2025-04-10] MEDS ORDERED: PHENYLEPHRINE HCL 10 MG/ML VIAL ONE (10:20)
[2025-04-10] MEDS ORDERED: SUGAMMADEX SODIUM 200 MG/2 ML VIAL IV ONE (10:21)
[2025-04-10] MEDS: ceFAZolin 330 MG/ML 1 GM VIAL ONE (10:26)
[2025-04-10] MEDS: BUPIVACAINE/EPINEPHRINE 0.25% 1:200,000 30 ML VIAL ONE (10:26)
[2025-04-10] MEDS: IOPAMIDOL INJ 61% 15 ML VIAL INSTIL ONE (11:07)
[2025-04-10] MEDS: FLOSEAL HEMOSTATIC MATRIX 10ML TOP ONE (11:27)
--- NOTE | 2025-04-10 11:39 | Operative Report ---
Post Operative Report Pre & Post Diagnosis Operation Date: 04/10/25 09:45 Pre-Op Diagnosis: #1 L2 compression fracture #2 loss of fixation loosening of hardware L2 vertebral body #3 osteoporotic compression fractures Post-Op Diagnosis: Same I identified the patient and participated in the time-out.: Yes Procedure Operation Date: 04/10/25 09:45 Actual Procedures #1 removal of posterior instrumentation L2-L5. #2 kyphoplasty of the T12, L1 and L2 vertebral body. #3 posterior spinal fusion T12-L2. #4 placement posterior segmental instrumentation T12-L5 using camber. #5 placement of Proteus combined with Koros bone graft and posterior gutters T12-L2. Surgeon Augustine Celaya, [employer] Faye Garay Estimated Blood Loss 400 Findings Consistent with Post-Op Diagnosis Specimens None Indications This is a 79-year-old male who is status post lumbar decompression fusion. He been doing well postoperatively but had a marked decline in status with severe axial back pain. Imaging demonstrates L2 compression fracture with migration of the pedicle screws into the L1-L2 disc space and increased kyphosis across the L1-L2 level. In light of his significant functional limitation he is here for surgical invention. Description of Procedure Patient was met with identified for consent obtained. Patient was then taken to the operative suite underwent a patient placed in a prone position on the Harshil table chest pad and the bolsters. All bony promises well-padded eyes in spected to ensure no external precipice upon the. This point the thoracolumbar spine was prepped and draped in normal sterile fashion. Sharp dissection with the assistance of Bovie cautery was performed down to and exposing the lamina and transverse processes of T12-L1 and instrumentation at L2 L3-L4-L5 bilaterally. The procedure remove the hardware bilaterally.. Noted marked loosening of the L2 pedicle screws. There was some loosening of the L3 screws as well. All hardware was removed and replaced with larger screws in the L3 vertebral body. I then performed a kyphoplasty of L2, L1 and T12. This was followed by placement of pedicle screws at these levels with fluoroscopic guidance. Proper size rods were then contoured and locked in position bilaterally. The transverse processes of T12 L1-L2 burred to subcortical bleeding bone. Koros combined with Proteus bone graft was placed in posterior gutters. 15 round IDA drain inserted. The incision was then closed with 1 Vicryl the fascia 2-0 Vicryl subcutaneously and 4 Monocryl for final skin closure. Steri-Strips sterile dressing placed. Patient waken taken to PACU stable condition. Please note Faye Garay was present throughout the entire procedure and for the patient positioning complex portion of the surgery and final skin closure. I attest to the content of the Intraoperative Record and any orders documented therein. Any exceptions are noted below.
[2025-04-10] MEDS ORDERED: SUCCINYLCHOLINE CHLORIDE 20 MG/ML 10 ML VIAL IV ONE (12:05)
[2025-04-10] MEDS: HYDROmorphone INJ 1 MG/ML SYRINGE IV PRN ×2 (12:29→16:01)
--- NOTE | 2025-04-10 12:29 | Fluoroscopy Report ---
INTRAOPERATIVE RADIOGRAPHS CLINICAL HISTORY: Kyphoplasty and spinal fusion. Fluoro time: 2 minutes 53 seconds Ka,r: 167.89 mGy FINDINGS: 4 spot fluoroscopic views of the lumbar spine are presented. Vertebroplasty change is seen at least 2 levels, likely representing T12 and L1. Discectomy change is seen at L2-L3, L3-L4, and L4- L5 with multilevel laminectomy and posterior fusion which appears to extend from T12 to L5. Interpedi cular screws are present at all levels. There is a left interpedicular screw fragment in the body of L5. The orthopedic hardware otherwise appears intact. IMPRESSION: Intraoperative images from lumbar spinal surgery and vertebroplasty as above. See operati ve report for detailed findings. Electronically signed by: Demetrius Ray M.D. 04/10/2025 12:28 PM
[2025-04-10] MEDS ORDERED: METOCLOPRAMIDE HCL INJ 5 MG/ML 2 ML VIAL IV PRN (13:48)
[2025-04-10] MEDS ORDERED: SOD PHOSPHATE/SOD BIPHOSPHATE ENEMA 132 ML BTL PR PRN (13:48)
[2025-04-10] MEDS ORDERED: COLCHICINE 0.6 MG TAB PO PRN (13:48)
[2025-04-10] MEDS ORDERED: ONDANSETRON 4 MG OD TAB PO PRN (13:48)
[2025-04-10] MEDS ORDERED: PHARMACY GLYCEMIC MGMT CONSULT PRN (13:48)
[2025-04-10] MEDS ORDERED: POTASSIUM CHLORIDE CRTAB 20 MEQ TABCR PO PRN (13:48)
[2025-04-10] MEDS ORDERED: HYDROmorphone INJ 0.5 MG/0.5 ML SYR IV PRN (13:48)
[2025-04-10] MEDS ORDERED: FAMOTIDINE 20 MG TAB PO PRN (13:48)
[2025-04-10] MEDS ORDERED: LORazepam Inj 0.5 MG in SYRINGE 0.25 ML IV PRN (13:48)
[2025-04-10] MEDS ORDERED: diphenhydrAMINE Capsule 25 MG CAP PO PRN (13:48)
[2025-04-10] MEDS ORDERED: LORazepam 0.5 MG TAB PO PRN (13:48)
[2025-04-10] MEDS ORDERED: DO NOT ADMINISTER PNEUMOCOCCAL VACCINE PRN (13:48)
[2025-04-10] MEDS ORDERED: ACETAMINOPHEN 1,000 MG/100 ML VIAL IV PRN (13:48)
[2025-04-10] MEDS ORDERED: DO NOT ADMINISTER FLU VACCINE PRN (13:48)
[2025-04-10] MEDS ORDERED: MAGNESIUM HYDROXIDE SUSP 30 ML UDC PO PRN (13:48)
[2025-04-10] MEDS ORDERED: PROMETHAZINE 12.5 MG/50.5 ML BAG IV PRN (13:48)
[2025-04-10] MEDS ORDERED: NITROGLYCERIN SL 0.4 MG/TAB TAB SL PRN (13:48)
[2025-04-10] MEDS ORDERED: ALUMINUM/MAGNESIUM SUSP 30 ML UDC PO PRN (13:48)
--- NOTE | 2025-04-10 14:02 | Anesthesiology Progress Note ---
Date of Service April 10, 2025 Anesthesia Post Procedure Vital Signs Vital Signs: Temp Pulse Resp BP BP Pulse Ox O2 Del Method 04/10/25 13:30 90 12 131/64 96 Nasal Cannula 04/10/25 13:15 80 12 140/72 96 Nasal Cannula 04/10/25 13:00 80 12 150/71 H 96 Nasal Cannula 04/10/25 12:45 97.5 F L 86 14 147/73 H 98 Nasal Cannula 04/10/25 12:35 83 12 148/77 H 97 Nasal Cannula 04/10/25 12:25 85 21 147/76 H 96 Nasal Cannula 04/10/25 12:15 76 12 141/67 H 95 Nasal Cannula 04/10/25 12:05 78 16 157/88 H 99 Oxymask 04/10/25 11:57 98.1 F 81 21 148/63 H 99 Oxymask 04/10/25 09:08 98.1 F 83 20 145/73 H 97 Room Air O2 Flow Rate 04/10/25 13:30 2 04/10/25 13:15 2 04/10/25 13:00 2 04/10/25 12:45 2 04/10/25 12:35 2 04/10/25 12:25 2 04/10/25 12:15 4 04/10/25 12:05 4 04/10/25 11:57 6 04/10/25 09:08 Pain Intensity Back: Pain Intensity: 4 Transfer of Care Handoff Completed per policy Notes Mental Status: alert / awake / arousable and participated in evaluation Patient Amnestic to Procedure: Yes Nausea / Vomiting: adequately controlled Pain: adequately controlled Airway Patency, RR, SpO2: stable & adequate BP & HR: stable & adequate Hydration State: stable & adequate Anesthetic Complications: no major complications apparent and Pt Satisfied with anesthetic care
[2025-04-10] MEDS: SODIUM CHLORIDE 0.9% 1,000 ML IV SCH (15:04)
--- NOTE | 2025-04-10 15:14 | Pharmacy Report ---
Pharmacy Glycemic Short Note 2 - Date of Service April 10, 2025 - Glycemic Short BSG Results (Last 24 hours): 04/10/25 04/10/25 04/10/25 08:32 08:49 11:59 Glucose 125 H POC Glucose 123 H 164 H OUTPATIENT ANTIDIABETIC REGIMEN: * Insulin glargine 58 units QHS * Semaglutide 0.5 mg SQ weekly HbA1c: 7.6% (02/01/25) ASSESSMENT: * 79 yo M, s/p lumbar decompression and fusion with postoperative fracture of L2. POD0 spinal surgery. Received Dexamethasone 4mg IV pre-op. No further steroids ordered at this time. Type 2 DM. * Lantus dose now to cover steroids, and PRN tonight. Patient did not require insulin doses as high as outpatient doses last admission in January. Will begin with similar dosing. * Clear liquid diet. PLAN FOR INPATIENT GLYCEMIC CONTROL: * Hold outpatient diabetes medications * Basal insulin * Lantus 30 units SQ x 1 dose now, then PRN HS (0 units BSG < 180, 10 units BSG 180-220, 15 units BSG > 220) * Bolus insulin * NovoLog per scale ACHS or Q6hrs while NPO * Goal Range: Low 110 mg/dL - High 140 mg/dL * Correction Factor: 20 mg/dL/unit * Nutritional / Prandial insulin per carb ratio of 1 unit per 6 grams CHO consumed
[2025-04-10] MEDS: LANTUS PER UNIT CHARGE SC ONE (16:39)
[2025-04-10] MEDS: INSULIN ASPART PER UNIT CHARGE SC SCH (16:40)
[2025-04-10] MEDS: ISOSORBIDE MONO EXTENDED REL 60 MG TABCR PO SCH (22:33)
[2025-04-10] MEDS: PRAMIPEXOLE DIHYDROCHLO 0.5 MG TAB PO SCH (22:33)
[2025-04-10] MEDS: EZETIMIBE 10 MG TAB PO SCH (22:34)
[2025-04-10] MEDS: FLUTICASONE PROPIONATE NA SPR 16 GM BTL SCH (22:35)
[2025-04-10] MEDS: LANTUS PER UNIT CHARGE SC SCH (22:41)
[2025-04-10] MEDS: DOCUSATE SODIUM/SENNA 50/8.6MG TAB PO SCH (23:06)
[2025-04-11] MEDS ORDERED: INSULIN ASPART PER UNIT CHARGE SC SCH
[2025-04-11] MEDS: INSULIN ASPART PER UNIT CHARGE SC SCH (01:32)
[2025-04-11] MEDS: POLYETHYLENE (MIRALAX) 17 GM PACK PO SCH (05:25)
[2025-04-11 07:03] LABS: Hematocrit (blood only) 32.4 % (42.0-52.0); Hemoglobin 9.9 g/dL (14.0-18.0); Immature Granulocytes # (auto) 0.04 K/uL (0.01-0.20); Immature Granulocytes % (auto) 0.5 %; Mean Corpuscular Hemoglobin 28.4 pg (25.0-34.0); Mean Corpuscular Volume 93.1 fL (80.0-100.0); Platelet Count 138 K/uL (130-400); RDW Standard Deviation 54.9 fL (36.4-46.3); Red Blood Count 3.48 M/uL (4.70-6.10); White Blood Count 8.07 K/ul (4.8-10.8)
[2025-04-11 07:36] LABS: Anion Gap 8.0 (3-11); Blood Urea Nitrogen 25.0 mg/dl (6-23); Calcium 8.9 mg/dl (8.6-10.3); Carbon Dioxide 27.0 mmol/L (21-32); Chloride 103.0 mmol/L (98-107); Creatinine Clr Calc Pharmacy 63.8 ml/min; Glucose 118.0 mg/dl (70-99(Fasting)); Potassium 4.7 mmol/L (3.5-5.1); Sodium 138.0 mmol/L (136-145)
[2025-04-11] MEDS: CYANOCOBALAMIN (B-12) 500 MCG TABLET PO SCH (08:04)
[2025-04-11] MEDS: METOPROLOL SUCC 25MG EXT REL TAB PO SCH (08:04)
[2025-04-11] MEDS: ACETAMINOPHEN 500 MG TAB PO PRN (08:04)
[2025-04-11] MEDS: ASPIRIN 81 MG ECTAB PO SCH (08:05)
[2025-04-11] MEDS: UMECLIDINIUM/VILANTEROL 62.5/25MCG 7 PUFFS/INHALER INH SCH (08:06)
[2025-04-11] MEDS: TAMSULOSIN HCL 0.4 MG CAP PO SCH (08:06)
[2025-04-11] MEDS: FLUTICASONE FUROATE 100MCG 14 PUFFS/INHALER INH SCH (08:07)
[2025-04-11] MEDS ORDERED: NON-FORMULARY MEDICATION (Fluticasone-Umeclidin-Vilanter [Trelegy Ellipta] 100-62.5-25 mcg INH SCH (09:00)
--- NOTE | 2025-04-11 09:41 | Hospitalist Consultation ---
Date of Consultation April 11, 2025 History of Present Illness Attending Physician: Augustine Celaya DO Allergies Allergy/AdvReac Type Severity Reaction Status Date / Time No Known Allergies Allergy Verified 04/10/25 08:53 Home Medications Medication Instructions Recorded Confirmed Type metolazone 2.5 mg tablet 2.5 mg PO 2XWK 06/15/22 04/10/25 History trazodone 50 mg tablet 50 mg PO HS PRN Sleep 06/15/22 04/10/25 History aspirin 81 mg capsule 81 mg PO QAM 04/18/24 04/10/25 History docusate sodium 100 mg capsule 200 mg PO DAILY 05/24/24 04/10/25 History (Colace) cyanocobalamin (vitamin B-12) 1,000 mcg PO DAILY #30 caps 05/26/24 04/10/25 Rx 1,000 mcg capsule allopurinol 300 mg tablet 300 mg PO DAILY 02/01/25 04/10/25 History amoxicillin 500 mg capsule 2,000 mg PO ONCE 02/01/25 04/10/25 History bumetanide 2 mg tablet 3 mg PO DAILY PRN SOB 02/01/25 04/10/25 History clopidogrel 75 mg tablet 75 mg PO WK 02/01/25 04/10/25 History colchicine 0.6 mg tablet 0.6 mg PO UD PRN FLARE 02/01/25 04/10/25 History cyclobenzaprine 10 mg tablet 10 mg PO HS 02/01/25 04/10/25 History diclofenac sodium 1 % topical gel 2 g topical BID PRN RIGHT KNEE PAIN 02/01/25 04/10/25 History ezetimibe 10 mg tablet 10 mg PO HS 02/01/25 04/10/25 History fluticasone fur. 100 mcg-umeclid 1 ea inhalation DAILY 02/01/25 04/10/25 History 62.5 mcg-vilant 25 mcg inhalat.powder (Trelegy Ellipta) fluticasone propionate 50 2 spray intranasal HS 02/01/25 04/10/25 History mcg/actuation nasal spray,suspension gabapentin 300 mg capsule 900 mg PO HS 02/01/25 04/10/25 History insulin glargine 100 unit/mL (3 58 unit subcut HS 02/01/25 04/10/25 History mL) subcutaneous pen (Basaglar KwikPen U-100 Insulin) isosorbide mononitrate 60 mg 60 mg PO HS 02/01/25 04/10/25 History tablet,extended release 24 hr metoprolol succinate 25 mg 25 mg PO QAM 02/01/25 04/10/25 History tablet,extended release 24 hr nitroglycerin 0.4 mg sublingual 0.4 mg sublingual .EVERY 3 MINUTES 02/01/25 04/10/25 History tablet X3 PRN Chest Pain pantoprazole 40 mg tablet,delayed 40 mg PO BID 02/01/25 04/10/25 History release potassium chloride 20 mEq 20 meq PO UD 02/01/25 04/10/25 History tablet,extended release(part/cryst) pramipexole 0.5 mg tablet 1 mg PO HS 02/01/25 04/10/25 History rosuvastatin 10 mg tablet 10 mg PO 2XWK 02/01/25 04/10/25 History semaglutide 0.25 mg or 0.5 mg (2 0.5 mg subcut WK 02/01/25 04/10/25 History mg/3 mL) subcutaneous pen injector (Ozempic) tamsulosin 0.4 mg capsule 0.4 mg PO QAM 02/01/25 04/10/25 History tramadol 50 mg tablet 50 mg PO Q6H PRN pain, moderate 02/04/25 04/10/25 Rx #30 tabs Patient History Medical History Atrial fibrillation Follows with Dr. Christian Lester, [facility] s/p Watchman device 05/2023 Previously taking Plavix once weekly until last dose 04/04/25; has been "weaned off of plavix" since Watchman procedure CAD (coronary artery disease) CABG (LOPEZ to LAD, SVG to diagonal, SVG to marginal, and SVG to RCA) in 1995 2002- "multiple stents placed including LM stenting" (no specific details of procedure per records) September 2011 cath- patent LOPEZ graft to LAD and SVG to diagonal; vein graft to marginal and RCA were occluded; LM stent patent and supplying blood flow to Cx which collateralized the distant RCA (treated with medical therapy since that time) September 03, 2022- GERSON to vein graft to diagonal branch (had ostial 90% lesion) Carotid artery disease S/p stent to right ICA 05/2021 CHF (congestive heart failure) Follows with [facility] Diabetes mellitus, type 2 IDDM DVT (deep venous thrombosis) 2020, unsure which side, unknown etiology GERD (gastroesophageal reflux disease) History of COVID-19 2019, resolved History of hypertension [place] (hard of hearing) Hx of gout No recent flare Hyperlipidemia NSTEMI (non-ST elevated myocardial infarction) 2021 Obesity PAD (peripheral artery disease) Low extremities 2019- underwent multiple stenting and balloon angioplasty procedures by Dr Edu Barnes historian Presence of Watchman left atrial appendage closure device 05/2023, [place] Surgical History H/O carotid angioplasty Right (2021) History of appendectomy Age 13 History of cardiac cath CABG (LOPEZ to LAD, SVG to diagonal, SVG to marginal, and SVG to RCA) in 1995 2002- "multiple stents placed including LM stenting" (no specific details of procedure per records) September 2011 cath- patent LOPEZ graft to LAD and SVG to diagonal; vein graft to marginal and RCA were occluded; LM stent patent and supplying blood flow to Cx which collateralized the distant RCA (treated with medical therapy since that time) October 2021- GERSON to vein graft to diagonal branch (had ostial 90% lesion) History of colonoscopy History of coronary artery bypass graft CABG x4 (1995) History of esophagogastroduodenoscopy (EGD) History of lumbar surgery 06/18/22: L4-L5 discectomy and fusion 05/24/24: L3-5 decompression/fusion, hardware removal L4-5 02/01/25: L2-3 PLDF: MAC#4, ETT#7.5 Gr View 2 History of repair of rotator cuff Left History of tooth extraction All upper teeth Hx of heart surgery Watchman device (05/2023) Family History Mother Diabetes Social History Smoking Status: Never smoker Tobacco Type: Smokeless Tobacco (Dip or Chew) Smoking End Date: 1984; Second Hand Exposure: No; Do You Dip or Chew Tobacco: No; Tobacco Cessation Education Requested by Patient: No Hx Alcohol Use: No Hx Substance Use: No Preferred Language: Djiboutian Communication Ability: Effective Sr. Vendor Management Associate Required: No Beliefs That Will Affect Care: None Current Living Situation: Other Current Living Situation Comment: friend lives with him Other Information That Helps Us Care for You: No Feels Safe at Home: Yes Safety Concerns: Feels Safe At This Time Assistive Devices: Cane, Denture - Upper, Glasses and Walker Results & Data Results & Data Vital Signs (Past 12 Hours) Vital Signs Temp Pulse Resp BP Pulse Ox O2 Del Method 04/11/25 07:26 37.0 C 85 16 119/75 92 Room Air 04/11/25 03:45 36.5 C 77 18 128/73 92 Room Air 04/10/25 23:24 36.4 C L 72 18 137/68 96 Room Air PG Care Time/CCT Total # of Minutes Spent Total Time Spent with Patient: Total time spent is greater than 50% in coordination of care (as documented) at patient's floor/unit and/or counseling patient: Coding
--- NOTE | 2025-04-11 10:25 | Orthopedic Progress Note ---
Date of Service April 11, 2025 Assessment & Plan (1) Lumbar compression fracture: Plan: At this time continue physical therapy monitor his IDA operatively discharge to rehab next few days. Admission and Anticipated Discharge Date Admission Date: April 10, 2025 Subjective Back pain markedly improved. He is tolerating walking. Physical Exam Physical Exam: Patient in the chair at bedside. Distracted testing. Results & Data Vital Signs (Past 12 Hours) Vital Signs Temp Pulse Resp BP Pulse Ox O2 Del Method 04/11/25 07:26 37.0 C 85 16 119/75 92 Room Air 04/11/25 03:45 36.5 C 77 18 128/73 92 Room Air 04/10/25 23:24 36.4 C L 72 18 137/68 96 Room Air Queries Orthopedic Spine Obesity: Yes Vertebral Fracture Secondary to Osteoporosis: Yes
--- NOTE | 2025-04-11 13:23 | Pharmacy Report ---
Pharmacy Glycemic Short Note 2 - Date of Service April 11, 2025 - Glycemic Short BSG Results (Last 24 hours): 04/10/25 04/10/25 04/11/25 16:29 21:11 01:26 Glucose POC Glucose 228 H 251 H 174 H 04/11/25 04/11/25 04/11/25 03:40 05:25 07:49 Glucose 118 H POC Glucose 128 H 107 H 04/11/25 11:49 Glucose POC Glucose 153 H OUTPATIENT ANTIDIABETIC REGIMEN: * Insulin glargine 58 units QHS * Semaglutide 0.5 mg SQ weekly HbA1c: 7.6% (02/01/25) ASSESSMENT: 04/11 * Patient received total of 62 units of insulin yesterday, of which 45 units were basal insulin * Fasting BSG 107 mg/dL - no steroids ordered today (received IV dex yesterday) therefore will scale back basal 30-35 units HS * Continue same CF/CR 04/10 * 79 yo M, s/p lumbar decompression and fusion with postoperative fracture of L2. POD0 spinal surgery. Received Dexamethasone 4mg IV pre-op. No further steroids ordered at this time. Type 2 DM. * Lantus dose now to cover steroids, and PRN tonight. Patient did not require insulin doses as high as outpatient doses last admission in January. Will begin with similar dosing. * Clear liquid diet. PLAN FOR INPATIENT GLYCEMIC CONTROL: * Hold outpatient diabetes medications * Basal insulin * Lantus 30-35 units HS * Bolus insulin * NovoLog per scale ACHS or Q6hrs while NPO * Goal Range: Low 110 mg/dL - High 140 mg/dL * Correction Factor: 20 mg/dL/unit * Nutritional / Prandial insulin per carb ratio of 1 unit per 6 grams CHO consumed
[2025-04-11] MEDS: BUMETANIDE 1 MG TAB PO PRN (17:50)
[2025-04-12] MEDS: ROSUVASTATIN CALCIUM 10 MG TAB PO SCH (08:40)
--- NOTE | 2025-04-12 09:08 | Pharmacy Report ---
Pharmacy Glycemic Short Note 2 - Date of Service April 12, 2025 - Glycemic Short BSG Results (Last 24 hours): 04/11/25 04/11/25 04/11/25 11:49 16:40 20:31 POC Glucose 153 H 75 99 04/12/25 07:25 POC Glucose 152 H OUTPATIENT ANTIDIABETIC REGIMEN: * Insulin glargine 58 units QHS * Semaglutide 0.5 mg SQ weekly HbA1c: 7.6% (02/01/25) ASSESSMENT: 04/12 * Patient received total of 23 units of insulin yesterday, basal insulin held last evening for BSG of 99 mg/dL * Fasting BSG 152 mg/dl - will plan on adding basal again for today with scale * Will loosen CF.CR this AM as blood sugars trending down yesterday 04/11 * Patient received total of 62 units of insulin yesterday, of which 45 units were basal insulin * Fasting BSG 107 mg/dL - no steroids ordered today (received IV dex yesterday) therefore will scale back basal 30-35 units HS * Continue same CF/CR 04/10 * 79 yo M, s/p lumbar decompression and fusion with postoperative fracture of L2. POD0 spinal surgery. Received Dexamethasone 4mg IV pre-op. No further steroids ordered at this time. Type 2 DM. * Lantus dose now to cover steroids, and PRN tonight. Patient did not require insulin doses as high as outpatient doses last admission in January. Will begin with similar dosing. * Clear liquid diet. PLAN FOR INPATIENT GLYCEMIC CONTROL: * Hold outpatient diabetes medications * Basal insulin * Lantus 15-25 units HS * Bolus insulin * NovoLog per scale ACHS or Q6hrs while NPO * Goal Range: Low 110 mg/dL - High 140 mg/dL * Correction Factor: 25 mg/dL/unit * Nutritional / Prandial insulin per carb ratio of 1 unit per 8 grams CHO consumed
--- NOTE | 2025-04-12 09:17 | Hospitalist Consultation ---
Date of Consultation April 12, 2025 Assessment & Plan (1) Lumbar compression fracture: Plan Pt is a 79 yo male with PMH of CAD, A-fib with watchman, CHF, DM2, HTN, GERD, gout, and HLD who presented with intractable back pain. Pt underwent L3-5 decompression and fusion with hardware removal with Dr. Celaya on 02/02. #CAD/CHF Last Echo from 01/2024 showed moderate left ventricular hypertrophy, EF 55%, mild-moderate MR, trace AR. - Continue metoprolol 25mg qam, isosorbide 60mg qpm - Resume Bumetanide 3mg qd prn - Resume KCl 20mEq qd prn #A-fib s/p watchman 05/2023 - Resume asa 81 mg in AM #DMT2 A1c is 7.6%. Using basal insulin and Ozempic at home. - Glycemic consult already in place #S/P Lumbar surgery per primary team 1 L2 compression fracture 2 loss of fixation loosening of hardware L2 vertebral body 3 osteoporotic compression fractures - Pain control per orthopedic surgery regimen - however did switch his tylenol to scheduled as he only received one dose yesterday. - PT/OT eval ordered Chronic conditions: GERD-Continue pantoprazole Gout- Continue allopurinol HLD- Continue rosuvastatin and ezetimibe RLS- Continue ropinrole, gabapentin BPH- tamsulosin 0.4mg Insomnia-Continue Trazodone prn for difficulty sleeping Dispo: Med/surg Diet: Heart healthy/DMT2 VTE: SCDs Code: Full History of Present Illness Reason for Consultation: Medical management Attending Physician: Augustine Celaya, DO History of Present Illness Pt is a 79 yo male with PMH of CAD, A-fib with watchman, CHF, DM2, HTN, GERD, gout, and HLD who is here for lumbar compression fracture and loosening of hardware. Patient underwent repair. Patient reports feeling well aside from pain in the surgical site. Pt denies CP, SOB, abdominal pain, N/V, dizziness or headache. Allergies Allergy/AdvReac Type Severity Reaction Status Date / Time No Known Allergies Allergy Verified 04/10/25 08:53 Home Medications Medication Instructions Recorded Confirmed Type metolazone 2.5 mg tablet 2.5 mg PO 2XWK 06/15/22 04/10/25 History trazodone 50 mg tablet 50 mg PO HS PRN Sleep 06/15/22 04/10/25 History aspirin 81 mg capsule 81 mg PO QAM 04/18/24 04/10/25 History docusate sodium 100 mg capsule 200 mg PO DAILY 05/24/24 04/10/25 History (Colace) cyanocobalamin (vitamin B-12) 1,000 mcg PO DAILY #30 caps 05/26/24 04/10/25 Rx 1,000 mcg capsule allopurinol 300 mg tablet 300 mg PO DAILY 02/01/25 04/10/25 History amoxicillin 500 mg capsule 2,000 mg PO ONCE 02/01/25 04/10/25 History bumetanide 2 mg tablet 3 mg PO DAILY PRN SOB 02/01/25 04/10/25 History clopidogrel 75 mg tablet 75 mg PO WK 02/01/25 04/10/25 History colchicine 0.6 mg tablet 0.6 mg PO UD PRN FLARE 02/01/25 04/10/25 History cyclobenzaprine 10 mg tablet 10 mg PO HS 02/01/25 04/10/25 History diclofenac sodium 1 % topical gel 2 g topical BID PRN RIGHT KNEE PAIN 02/01/25 04/10/25 History ezetimibe 10 mg tablet 10 mg PO HS 02/01/25 04/10/25 History fluticasone fur. 100 mcg-umeclid 1 ea inhalation DAILY 02/01/25 04/10/25 History 62.5 mcg-vilant 25 mcg inhalat.powder (Trelegy Ellipta) fluticasone propionate 50 2 spray intranasal HS 02/01/25 04/10/25 History mcg/actuation nasal spray,suspension gabapentin 300 mg capsule 900 mg PO HS 02/01/25 04/10/25 History insulin glargine 100 unit/mL (3 58 unit subcut HS 02/01/25 04/10/25 History mL) subcutaneous pen (Arianaaglar Stuart U-100 Insulin) isosorbide mononitrate 60 mg 60 mg PO HS 02/01/25 04/10/25 History tablet,extended release 24 hr metoprolol succinate 25 mg 25 mg PO QAM 02/01/25 04/10/25 History tablet,extended release 24 hr nitroglycerin 0.4 mg sublingual 0.4 mg sublingual .EVERY 3 MINUTES 02/01/25 04/10/25 History tablet X3 PRN Chest Pain pantoprazole 40 mg tablet,delayed 40 mg PO BID 02/01/25 04/10/25 History release potassium chloride 20 mEq 20 meq PO UD 02/01/25 04/10/25 History tablet,extended release(part/cryst) pramipexole 0.5 mg tablet 1 mg PO HS 02/01/25 04/10/25 History rosuvastatin 10 mg tablet 10 mg PO 2XWK 02/01/25 04/10/25 History semaglutide 0.25 mg or 0.5 mg (2 0.5 mg subcut WK 02/01/25 04/10/25 History mg/3 mL) subcutaneous pen injector (Ozempic) tamsulosin 0.4 mg capsule 0.4 mg PO QAM 02/01/25 04/10/25 History tramadol 50 mg tablet 50 mg PO Q6H PRN pain, moderate 02/04/25 04/10/25 Rx #30 tabs oxycodone 5 mg tablet 5 mg PO Q6H PRN pain #30 tabs 04/11/25 Rx tramadol 50 mg tablet 50 mg PO Q6H PRN pain, moderate 04/11/25 Rx #30 tabs Patient History Medical History Obesity SKAGWAY (hard of hearing) CAD (coronary artery disease) CABG (LOPEZ to LAD, SVG to diagonal, SVG to marginal, and SVG to RCA) in 1995 2002- "multiple stents placed including LM stenting" (no specific details of procedure per records) September 2011 cath- patent LOPEZ graft to LAD and SVG to diagonal; vein graft to marginal and RCA were occluded; LM stent patent and supplying blood flow to Cx which collateralized the distant RCA (treated with medical therapy since that time) September 03, 2022- GERSON to vein graft to diagonal branch (had ostial 90% lesion) Presence of Watchman left atrial appendage closure device 05/2023Mago History of hypertension Diabetes mellitus, type 2 IDDM CHF (congestive heart failure) Follows with [facility] Atrial fibrillation Follows with Dr. Christian Lester, [facility] s/p Watchman device 05/2023 Previously taking Plavix once weekly until last dose 04/04/25; has been "weaned off of plavix" since Watchman procedure NSTEMI (non-ST elevated myocardial infarction) 2021 PAD (peripheral artery disease) Low extremities 2019- underwent multiple stenting and balloon angioplasty procedures by Dr Sorensen Carotid artery disease S/p stent to right ICA 05/2021 Hx of gout No recent flare GERD (gastroesophageal reflux disease) DVT (deep venous thrombosis) 2020, unsure which side, unknown etiology Poor historian History of COVID-19 2019, resolved Hyperlipidemia Surgical History Hx of heart surgery Watchman device (05/2023) History of lumbar surgery 06/18/22: L4-L5 discectomy and fusion 05/24/24: L3-5 decompression/fusion, hardware removal L4-5 02/01/25: L2-3 PLDF: MAC#4, ETT#7.5 Gr View 2 History of coronary artery bypass graft CABG x4 (1995) History of repair of rotator cuff Left History of tooth extraction All upper teeth History of esophagogastroduodenoscopy (EGD) History of colonoscopy History of appendectomy Age 13 H/O carotid angioplasty Right (2021) History of cardiac cath CABG (LOPEZ to LAD, SVG to diagonal, SVG to marginal, and SVG to RCA) in 1995 2002- "multiple stents placed including LM stenting" (no specific details of procedure per records) September 2011 cath- patent LOPEZ graft to LAD and SVG to diagonal; vein graft to marginal and RCA were occluded; LM stent patent and supplying blood flow to Cx which collateralized the distant RCA (treated with medical therapy since that time) October 2021- GERSON to vein graft to diagonal branch (had ostial 90% lesion) Family History Mother Diabetes Social History Smoking Status: Never smoker Tobacco Type: Smokeless Tobacco (Dip or Chew) Smoking End Date: 1984; Second Hand Exposure: No; Do You Dip or Chew Tobacco: No; Tobacco Cessation Education Requested by Patient: No Hx Alcohol Use: No Hx Substance Use: No Preferred Language: Dominican Communication Ability: Effective Ophthalmic Tech Required: No Beliefs That Will Affect Care: None Current Living Situation: Other Current Living Situation Comment: friend lives with him Other Information That Helps Us Care for You: No Feels Safe at Home: Yes Safety Concerns: Feels Safe At This Time Assistive Devices: Cane and Walker Review of Systems Constitutional: no fever and no body aches Eyes: no blind spots Ear, Nose, Mouth, Throat: no ear pain Respiratory: no cough Cardiovascular: no chest pain Gastrointestinal: no abdominal pain Musculoskeletal: + back pain Integumentary: no acne Psychiatric: no behavioral changes Endocrine: no fatigue Physical Exam Constitutional: WD/WN, vitals as above Neck: trachea midline, no thyromegaly Respiratory: normal respiratory effort, lungs clear to auscultation Cardiovascular: RRR, no murmur, no edema Gastrointestinal (Abdomen): normal bowel sounds, soft, nontender, no hepatosplenomegaly Musculoskeletal: no cyanosis or clubbing, extremities motor strength 5/5 Neurologic: PERRL, EOMI, accommodation nl, no face palsy, no dysarthria Psychiatric: A+Ox3, euthymic affect Results & Data Results & Data Vital Signs (Past 12 Hours) Vital Signs Temp Pulse Resp BP Pulse Ox O2 Del Method 04/12/25 07:27 36.5 C 92 H 16 135/69 92 Room Air PG Care Time/CCT Total # of Minutes Spent Total Time Spent with Patient: Total time spent is greater than 50% in coordination of care (as documented) at patient's floor/unit and/or counseling patient: Coding Level of Care Code 59214 IN/OBS CONSULT LVL 3,45M Diagnoses Lumbar compression fracture S32.000A
--- NOTE | 2025-04-12 10:07 | Orthopedic Progress Note ---
Date of Service April 12, 2025 Assessment & Plan (1) Lumbar compression fracture: Plan: At this time we will continue physical therapy monitor his IDA output he is planning for rehab placement. This can be as soon as tomorrow if bed available. Admission and Anticipated Discharge Date Admission Date: April 10, 2025 Subjective Patient is comfortable. He is tolerating physical therapy. Physical Exam Physical Exam: Patient is currently in bed having completed therapy. Distracted testing. Results & Data Vital Signs (Past 12 Hours) Vital Signs Temp Pulse Resp BP Pulse Ox O2 Del Method 04/12/25 07:27 36.5 C 92 H 16 135/69 92 Room Air Queries Orthopedic Spine Obesity: Yes Vertebral Fracture Secondary to Osteoporosis: Yes
[2025-04-12] MEDS: ACETAMINOPHEN 325 MG TAB PO SCH (13:10)
[2025-04-13 06:44] LABS: Hematocrit (blood only) 28.0 % (42.0-52.0); Hemoglobin 8.7 g/dL (14.0-18.0); Mean Corpuscular Hemoglobin 28.7 pg (25.0-34.0); Mean Corpuscular Volume 92.4 fL (80.0-100.0); Platelet Count 136 K/uL (130-400); RDW Standard Deviation 54.5 fL (36.4-46.3); Red Blood Count 3.03 M/uL (4.70-6.10); White Blood Count 5.67 K/ul (4.8-10.8)
[2025-04-13 07:21] LABS: Anion Gap 10.0 (3-11); Blood Urea Nitrogen 42.0 mg/dl (6-23); Calcium 8.9 mg/dl (8.6-10.3); Carbon Dioxide 29.0 mmol/L (21-32); Chloride 100.0 mmol/L (98-107); Creatinine Clr Calc Pharmacy 43.6 ml/min; Glucose 126.0 mg/dl (70-99(Fasting)); Potassium 3.7 mmol/L (3.5-5.1); Sodium 139.0 mmol/L (136-145)
[2025-04-13 13:06] VITALS: BP 134/62; PULSE 70; RESP 16; TEMP 97.9; O2SAT 93
--- NOTE | 2025-04-17 07:58 | Discharge Summary ---
Date of Service April 17, 2025 Admission HPI Per Admitting Provider This is a 71-year-old male known to me and is status post lumbar decompression and fusion with postoperative fracture of L2. Pain has been incapacitating marked in nature and is here for surgical intervention. Admission Exam (Per Admitting) Constitutional WD/WN, vitals as above Eyes normal visual kirk by confrontation ENMT external ear and nose normal, oropharynx normal Neck normal visual inspection Respiratory normal respiratory effort Cardiovascular Extremities: normal capillary refill Gastrointestinal (Abdomen) Inspection/Auscultation: abdomen normal to inspection Musculoskeletal Spine: + limited thoraco-lumbar ROM and + pain with thoraco-lumbar ROM Extremities: extremities normal to inspection Skin no rashes, warm and dry Neurologic normal touch/pain/proprioception and moves all extremities Psychiatric A+Ox3, euthymic affect Eye Contact: good eye contact Discharge Data Consultations 04/10/25 13:48 Consult Hospitalist Routine Procedures Performed Operation Date: 04/10/25 09:45 Actual Procedures p L2 Kyphoplasty, L2-L3 Revision Decompression and Fusion, T12-L5 Fusion(Not Applicable) - Augustine Celaya, Hospital Course (1) Lumbar compression fracture: Patient underwent L2 kyphoplasty, L2-3 revision and T12-L5 fusion by Dr. Celaya on April 10. He was ultimately discharged to [facility] swing bed facility on 04/13. He had an uneventful hospital course. Lab values stable. Making progress in physical therapy daily. Pain controlled.
== END 2025-04-13 14:15 | DRG 448 ==
LOC: ASU 08:05 → 3E 11:46